=== PATIENT | male | born 1970 | race Caucasian/White ===

== ENCOUNTER 2016-10-13 09:22 | Emergency (ER) | payer OTHER ==
[2016-10-13 09:30] VITALS: RESP 18
[2016-10-13] MEDS ORDERED: SODIUM CHLORIDE 0.9% 500 ML IV STA (09:56)
[2016-10-13] MEDS ORDERED: PANTOPRAZOLE 40 MG/10 ML VIAL IVP STA (09:56)
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
[2016-10-13 10:33] LABS: Basophils # (A) 0.1 k/uL (0-0.2); Basophils % (A) 1 %; CH 32.5; CHCM 36.7; Eosinophils # (A) 0.1 k/uL (0-0.7); Eosinophils % (A) 1 %; HCT 43.5 % (39.0-53.0); HGB 15.4 gm/dL (13.0-17.5); Luc # (Auto) 0.17; Luc % (Auto) 2; Lymphocytes # (A) 1.4 k/uL (1.0-4.8); Lymphocytes % (A) 16 %; MCH 31.6 pg (25.0-35.0); MCHC 35.5 g/dL (31.0-37.0); MCV 89.1 fL (80.0-100.0); Mean Platelet Volume 6.6; Monocytes # (A) 0.8 k/uL (0-1.0); Monocytes % (A) 9 %; Neutrophils # (A) 6.1 k/uL (1.3-7.7); Neutrophils % (A) 71 %; RBC 4.88 m/uL (4.30-5.90); RDW 13.5 % (11.5-15.5); WBC 8.5 k/uL (3.8-10.6); WBC (Perox) 8.92
[2016-10-13 10:41] LABS: ALT 37 U/L (21-72); AST 23 U/L (17-59); Alkaline Phosphatase 70 U/L (38-126); Amylase 42 U/L (30-110); Anion Gap 15 mmol/L; Blood Urea Nitrogen 10 mg/dL (9-20); Carbon Dioxide 26 mmol/L (22-30); Chloride 104 mmol/L (98-107); Glucose 118 mg/dL (74-99); Non-African American GFR(MDRD) >60 (>60 ml/min/1.73 sqM); Potassium 3.7 mmol/L (3.5-5.1); Sodium 145 mmol/L (137-145); Total Bilirubin 0.6 mg/dL (0.2-1.3); Total Protein 7.6 g/dL (6.3-8.2)
[2016-10-13 10:42] LABS: INR 1.1 (<1.1); Partial Thromboplastin Time 24.3 sec (22.0-30.0); Prothrombin Time 11.3 sec (9.0-12.0)
[2016-10-13 10:54] LABS: Creatine Kinase 60 U/L (55-170)
[2016-10-13 11:07] LABS: Creatine Kinase MB 0.5 ng/mL (0.0-2.4); Troponin I <0.012 ng/mL (0.000-0.034)
[2016-10-13 12:19] VITALS: BP 136/67; PULSE 82; TEMP 98
== END 2016-10-13 12:25 | disposition home or self-care (01) ==
LOC: EC 09:22
DX: K92.2 Gastrointestinal hemorrhage, unspecified (principal); K21.9 Gastro-esophageal reflux disease without esophagitis; F41.9 Anxiety disorder, unspecified; F41.0 Panic disorder [episodic paroxysmal anxiety]; Z79.899 Other long term (current) drug therapy; Z88.5 Allergy status to narcotic agent
CPT/HCPCS: 99284; 36415; 86900; 86901; 80053; 82150; 82550; 82553; 83690; 84484; 85025; 85610; 85730; 86850; 82272; C9113

== ENCOUNTER → 2017-05-02 | Outpatient (CLI) | payer OTHER ==
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
== END | disposition home or self-care (01) ==
LOC: RADMRIMAIN 19:27
PROVIDERS: ATTEND Preventive Medicine Occupational Medicine
DX: S46.811A Strain of other muscles, fascia and tendons at shoulder and upper arm level, right arm, initial encounter (principal); M19.011 Primary osteoarthritis, right shoulder

== ENCOUNTER → 2018-07-08 | Outpatient (CLI) | payer OTHER ==
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
== END | disposition home or self-care (01) ==
LOC: RADMRIMAIN 07:58
PROVIDERS: ATTEND Family Medicine
DX: M47.812 Spondylosis without myelopathy or radiculopathy, cervical region (principal)
CPT/HCPCS: 72141

== ENCOUNTER 2018-08-17 20:22 | Emergency (ER) | payer OTHER ==
[2018-08-17 20:27] VITALS: BP 152/94; PULSE 73; RESP 18; TEMP 99.2
[2018-08-17] MEDS ORDERED: CEPHALEXIN 500 MG CAP PO STA (20:51)
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
== END 2018-08-17 21:06 | disposition home or self-care (01) ==
LOC: EC 20:22
DX: S61.431A Puncture wound without foreign body of right hand, initial encounter (principal); Z79.1 Long term (current) use of non-steroidal anti-inflammatories (NSAID); Z79.899 Other long term (current) drug therapy; Z88.5 Allergy status to narcotic agent; W60.XXXA Contact with nonvenomous plant thorns and spines and sharp leaves, initial encounter
CPT/HCPCS: 99283

== ENCOUNTER → 2018-09-01 | Outpatient (CLI) | payer OTHER ==
[2018-09-01 11:13] LABS: Basophils % (A) 1 %; Eosinophils # (A) 0.1 k/uL (0-0.7); Eosinophils % (A) 3 %; HCT 44.5 % (39.0-53.0); HGB 14.9 gm/dL (13.0-17.5); Lymphocytes # (A) 1.6 k/uL (1.0-4.8); Lymphocytes % (A) 33 %; MCH 31.6 pg (25.0-35.0); MCHC 33.4 g/dL (31.0-37.0); MCV 94.4 fL (80.0-100.0); Mean Platelet Volume 6.4; Monocytes # (A) 0.4 k/uL (0-1.0); Monocytes % (A) 8 %; Neutrophils # (A) 2.5 k/uL (1.3-7.7); Neutrophils % (A) 52 %; Platelet Count 297 k/uL (150-450); RBC 4.71 m/uL (4.30-5.90); RDW 13.7 % (11.5-15.5); WBC 4.8 k/uL (3.8-10.6)
[2018-09-01 19:12] LABS: Vitamin D 25 Hydroxy 26.2 ng/mL (30.0-100.0)
[2018-09-01 19:16] LABS: Albumin 4.5 g/dL (3.80-4.90); Albumin/Globulin Ratio 1.88 (1.20-2.10); Anion Gap 8.3 mmol/L (4.00-12.00); Calcium 9.4 mg/dL (8.7-10.3); Carbon Dioxide 27.7 mmol/L (21.6-31.8); Globulin 2.4 g/dL (2.1-3.7); Potassium 4.1 mmol/L (3.5-5.5); Total Bilirubin 0.5 mg/dL (0.2-1.2); Total Protein 6.9 g/dL (6.2-8.2)
== END ==
LOC: LABWHC1 09:35
PROVIDERS: ATTEND Psychiatry & Neurology Neurology
DX: E55.9 Vitamin D deficiency, unspecified (principal); R53.83 Other fatigue; R41.3 Other amnesia
CPT/HCPCS: 36415; 80053; 82306; 82607; 84207; 85025

== ENCOUNTER → 2018-09-16 | Outpatient (CLI) | payer OTHER ==
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
== END | disposition home or self-care (01) ==
LOC: RADMRIMAIN 21:35
PROVIDERS: ATTEND Nurse Practitioner Acute Care
DX: R51 Headache (principal); R26.9 Unspecified abnormalities of gait and mobility
CPT/HCPCS: 70551

== ENCOUNTER → 2019-08-03 | Outpatient (CLI) | payer OTHER ==
[2019-08-03 13:59] LABS: HCT 38.9 % (39.0-53.0); HGB 13.4 gm/dL (13.0-17.5); MCH 32.2 pg (25.0-35.0); MCHC 34.6 g/dL (31.0-37.0); MCV 92.9 fL (80.0-100.0); Mean Platelet Volume 5.3; Platelet Count 291 k/uL (150-450); RBC 4.18 m/uL (4.30-5.90); RDW 12.7 % (11.5-15.5); WBC 8.8 k/uL (3.8-10.6)
[2019-08-03 20:24] LABS: African American GFR (CKD) 122.4 (60.0-200.0); Albumin 4.5 g/dL (3.80-4.90); Albumin/Globulin Ratio 1.96 (1.60-3.17); Anion Gap 7.2 mmol/L (4.00-12.00); Calcium 9.4 mg/dL (8.7-10.3); Carbon Dioxide 27.8 mmol/L (21.6-31.8); Globulin 2.3 g/dL (1.6-3.3); Potassium 5.2 mmol/L (3.5-5.5); Total Bilirubin 0.3 mg/dL (0.3-1.2); Total Protein 6.8 g/dL (6.2-8.2)
[2019-08-03 20:32] LABS: T4, Free (Free Thyroxine) 0.9 ng/dL (0.80-1.80)
== END | disposition home or self-care (01) ==
LOC: LABWHC1 13:29
PROVIDERS: ATTEND Internal Medicine
DX: R61 Generalized hyperhidrosis (principal)
CPT/HCPCS: 36415; 80053; 84439; 84443; 85027

== ENCOUNTER 2020-08-15 10:35 | Inpatient (IN) | payer OTHER ==
[2020-08-15] MEDS ORDERED: SODIUM CHLORIDE 0.9% 1,000 ML IV ONE (11:19)
[2020-08-15] MEDS ORDERED: ALBUTEROL HFA INHALER INHALATION STA (11:26)
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
[2020-08-15] MEDS: SODIUM CHLORIDE 0.9% 1,000 ML IV SCH ×2 (11:48→19:29)
--- NOTE | 2020-08-15 12:08 | XR ---
EXAMINATION TYPE: XR chest 1V portable DATE OF EXAM: 08/15/2020 COMPARISON: NONE HISTORY: Covid 19 pneumonia suspected, cough TECHNIQUE: Single frontal view of the chest is obtained. FINDINGS: Bilateral patchy airspace disease is present. No evident pneumothorax or pleural effusion. Cardiomediastinal silhouette, pulmonary vascularity and reba within normal limits. IMPRESSION: Bilateral pneumonia.
[2020-08-15 12:13] LABS: Basophils # (A) 0.1 k/uL (0-0.2); Basophils % (A) 1 %; Eosinophils % (A) 0 %; HCT 40.7 % (39.0-53.0); HGB 13.7 gm/dL (13.0-17.5); Lymphocytes # (A) 0.7 k/uL (1.0-4.8); Lymphocytes % (A) 7 %; MCH 31.7 pg (25.0-35.0); MCHC 33.5 g/dL (31.0-37.0); MCV 94.5 fL (80.0-100.0); Mean Platelet Volume 6.9; Monocytes # (A) 0.2 k/uL (0-1.0); Monocytes % (A) 2 %; Neutrophils # (A) 8.4 k/uL (1.3-7.7); Neutrophils % (A) 90 %; Platelet Count 176 k/uL (150-450); RBC 4.31 m/uL (4.30-5.90); RDW 12.8 % (11.5-15.5); WBC 9.3 k/uL (3.8-10.6)
[2020-08-15 12:26] LABS: ALT 50 U/L (4-49); AST 71 U/L (17-59); African American GFR (CKD) >90 (>60 ml/min/1.73 sqM); Albumin 3.8 g/dL (3.5-5.0); Alkaline Phosphatase 66 U/L (38-126); Anion Gap 5 mmol/L; Blood Urea Nitrogen 16 mg/dL (9-20); Calcium 8.6 mg/dL (8.4-10.2); Carbon Dioxide 35 mmol/L (22-30); Chloride 97 mmol/L (98-107); Glucose 149 mg/dL (74-99); LDH 1093 U/L (313-618); Magnesium 1.7 mg/dL (1.6-2.3); Non-African American GFR(CKD) >90 (>60 ml/min/1.73 sqM); Potassium 3.6 mmol/L (3.5-5.1); Sodium 137 mmol/L (137-145); Total Bilirubin 0.5 mg/dL (0.2-1.3); Total Protein 6.8 g/dL (6.3-8.2)
[2020-08-15 12:36] LABS: D-Dimer 0.38 mg/L FEU (<0.60); INR 0.9 (<1.2); Partial Thromboplastin Time 24.9 sec (22.0-30.0); Prothrombin Time 9.3 sec (9.0-12.0)
[2020-08-15 12:49] LABS: C Reactive Protein 142.7 mg/L (<10.0)
[2020-08-15] MEDS ORDERED: KETOROLAC 15 MG/ML 1 ML VIAL IVP PRN (13:15)
[2020-08-15] MEDS ORDERED: NALOXONE 0.4 MG/ML 1 ML VIAL IV PRN (13:15)
[2020-08-15] MEDS ORDERED: SODIUM CHLORIDE 0.9% 1,000 ML IV STA (13:23)
[2020-08-15] MEDS ORDERED: REMDESIVIR (EUA) 200 MG in SODIUM CHLORIDE 0.9% 250 ML IVPB ONE (15:00)
[2020-08-15] MEDS: dexAMETHasone 2 MG TAB PO SCH (17:27)
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
[2020-08-15] MEDS: ONDANSETRON 4 MG/2 ML VIAL IVP PRN (19:28)
[2020-08-15] MEDS: ACETAMINOPHEN TAB 325 MG TAB PO PRN (19:38)
[2020-08-15 20:49] LABS: D-Dimer 0.39 mg/L FEU (<0.60)
[2020-08-15] MEDS ORDERED: predniSONE 20 MG TAB PO SCH (21:00)
[2020-08-15] MEDS: FAMOTIDINE 20 MG TAB PO SCH (21:08)
[2020-08-15] MEDS: MELATONIN 5 MG TABLET PO SCH (21:36)
[2020-08-15 22:46] LABS: Ferritin 1161.8 ng/mL (22.0-322.0)
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
[2020-08-16] MEDS: ONDANSETRON 4 MG/2 ML VIAL IVP PRN ×3 (02:29→19:21)
[2020-08-16] MEDS: ACETAMINOPHEN TAB 325 MG TAB PO PRN ×2 (02:30→12:00)
[2020-08-16] MEDS: IBUPROFEN 400 MG TAB PO PRN ×2 (02:59→19:21)
[2020-08-16] MEDS ORDERED: METOCLOPRAMIDE 5 MG/ML 2 ML VIAL IVP STA (03:46)
[2020-08-16] MEDS: SODIUM CHLORIDE 0.9% 1,000 ML IV SCH ×2 (03:57→18:08)
[2020-08-16 05:59] LABS: Ferritin 906.6 ng/mL (22.0-322.0)
[2020-08-16 06:00] LABS: African American GFR (CKD) 115.8 (60.0-200.0); Albumin 3.8 g/dL (3.80-4.90); Albumin/Globulin Ratio 1.73 (1.60-3.17); Anion Gap 10.7 mmol/L (4.00-12.00); BUN/Creat Ratio 13.33 Ratio (12.00-20.00); Calcium 8.2 mg/dL (8.7-10.3); Carbon Dioxide 29.3 mmol/L (21.6-31.8); Globulin 2.2 g/dL (1.6-3.3); Non-African American GFR(CKD) 99.9 (60.0-200.0); Total Bilirubin 0.3 mg/dL (0.3-1.2)
[2020-08-16 06:27] LABS: Basophils % (A) 1 %; Eosinophils % (A) 0 %; HCT 40.1 % (39.0-53.0); HGB 13.1 gm/dL (13.0-17.5); Lymphocytes # (A) 0.5 k/uL (1.0-4.8); Lymphocytes % (A) 6 %; MCH 31.2 pg (25.0-35.0); MCHC 32.6 g/dL (31.0-37.0); MCV 95.7 fL (80.0-100.0); Mean Platelet Volume 6.7; Monocytes # (A) 0.2 k/uL (0-1.0); Monocytes % (A) 3 %; Neutrophils # (A) 6.8 k/uL (1.3-7.7); Neutrophils % (A) 89 %; Platelet Count 183 k/uL (150-450); RBC 4.19 m/uL (4.30-5.90); WBC 7.6 k/uL (3.8-10.6)
[2020-08-16] MEDS ORDERED: AZITHROMYCIN 500 MG TAB PO SCH (09:00)
[2020-08-16] MEDS ORDERED: PANTOPRAZOLE 40 MG/10 ML VIAL IV SCH (09:00)
[2020-08-16] MEDS: amLODIPine 5 MG TAB PO SCH (09:10)
[2020-08-16] MEDS: ENOXAPARIN 40 MG/0.4 ML SYRINGE SQ SCH (09:10)
[2020-08-16] MEDS: lisinopriL 20 MG TAB PO SCH (09:10)
[2020-08-16] MEDS: ZINC SULFATE 220 MG CAP PO SCH (09:10)
[2020-08-16] MEDS: dexAMETHasone 2 MG TAB PO SCH (09:10)
[2020-08-16] MEDS: ASCORBIC ACID 500 MG TAB PO SCH (09:10)
[2020-08-16] MEDS: DULoxetine HCL 60 MG CAPSULE.DR PO SCH (09:10)
[2020-08-16] MEDS: FAMOTIDINE 20 MG TAB PO SCH ×2 (09:11→19:21)
[2020-08-16] MEDS: NON FORMULARY DRUG (Buprenorphine Hcl/Naloxone Hcl [Suboxone 8 Mg-2 Mg Sl Film] 1 EACH Fil SUBLINGUAL SCH (09:15)
--- NOTE | 2020-08-16 10:54 | XR ---
EXAMINATION TYPE: XR chest 1V portable DATE OF EXAM: 08/16/2020 COMPARISON: Prior chest x-ray 08/15/2020 HISTORY: Covid pneumonia TECHNIQUE: Single frontal view of the chest is obtained. FINDINGS: There is no significant interval change. IMPRESSION: Findings consistent with bilateral pneumonia.
--- NOTE | 2020-08-16 12:55 | P.PN ---
Subjective Progress Note Date: 08/16/20 Principal diagnosis: CoVID 19 pneumonia This is a 50-year-old male patient of Dr. Meera Dominguez that tested positive for COVID19 as of yesterday. Patient still was having symptoms of body aches, malaise, shortness of breath for the past 4 days. 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 He may have had the exposure to COVID 19 at work. He reports multiple staff members sick. This morning patient developed worsening shortness of breath, hypoxemia, his pulse ox was 88% on room air. Chest x-ray in the emergency department showed bilateral patchy airspace disease, his lab work showed lymphopenia, with lymphocyte count of 0.7, correlat ion profile and d-dimer were within normal limits, d-dimer was 0.38, his plasma lactic acid was 2.6, his LDH and CRP were elevated at 1093 and 142.7 respectively. Patient was febrile presentation with a temp of 101.4F. He is on 3 L of oxygen a pulse ox of 90%, hemodynamically stable, his lactic acid is elevated on presentation, he was given IV hydration a total of 2 L and IV fluids, and maintenance IV fluid is 0.9 normal saline infusing at a rate of 100 ML per hour, he was started on oral Decadron, prophylactic doses of Lovenox, and we have started the patient on Remdesivir. The patient is seen today 08/16/2020 in follow-up on the regular medical floor. He is currently resting in bed. Awake and alert in no acute distress. Still having some mild headache and muscle aches. He is still requiring oxygen at 5 L/m per nasal cannula to maintain O2 saturations in the low 90s. Earlier this morning had a T-max of 101.7. Currently afebrile. White count 7.6. Hemoglobin 13.1. He is continued on Remdesivir, vitamin C, vitamin D, Pepcid, zinc, melatonin, Lovenox. Antibiotics in the form of azithromycin. Check stat x-ray continues to show bilateral pneumonia. Objective - Vital Signs Vital signs: Vital Signs Temp 98.3 F 08/16/20 07:00 Pulse 69 08/16/20 07:00 Resp 18 08/16/20 07:00 BP 127/86 08/16/20 07:00 Pulse Ox 92 L 11/04/20 07:00 Intake & Output 08/15/20 08/16/20 08/16/20 18:59 06:59 18:59 Intake Total 200 Output Total 1400 Balance -1200 Weight 127.006 kg Intake: Oral 200 Output: Urine 1400 - Exam GENERAL EXAM: Alert, pleasant 50-year-old gentleman, on 5 L nasal cannula comfortable in no apparent distress. HEAD: Normocephalic. EYES: Normal reaction of pupils, equal size. NOSE: Clear with pink turbinates. THROAT: No erythema or exudates. NECK: No masses, no JVD. CHEST: No chest wall deformity. LUNGS: Equal air entry with basilar crackles. CVS: S1 and S2 normal with no audible murmur, regular rhythm. ABDOMEN: No hepatosplenomegaly, normal bowel sounds, no guarding or rigidity. SPINE: No scoliosis or deformity SKIN: No rashes CENTRAL NERVOUS SYSTEM: No focal deficits, tone is normal in all 4 extremities. EXTREMITIES: There is no peripheral edema. No clubbing, no cyanosis. Peripheral pulses are intact. - Labs CBC & Chem 7: 08/16/20 05:41 08/15/20 20:00 Labs: Abnormal Lab Results - Last 24 Hours (Table) 08/15/20 08/15/20 08/15/20 Range/Units 11:23 11:23 11:23 RBC (4.30-5.90) m/uL Lymphocytes # (1.0-4.8) k/uL Chloride 97 L (98-107) mmol/L Carbon Dioxide 35 H (22-30) mmol/L Glucose 149 H (74-99) mg/dL Plasma Lactic Acid Misha 2.6 H* (0.7-2.0) mmol/L Calcium (8.7-10.3) mg/dL Ferritin 1161.8 H (22.0-322.0) ng/mL AST 71 H (17-59) U/L ALT 50 H (4-49) U/L Lactate Dehydrogenase 1093 H (313-618) U/L C-Reactive Protein 142.7 H (<10.0) mg/L Total Protein (6.2-8.2) g/dL Procalcitonin 0.24 H (0.02-0.09) ng/mL 08/15/20 08/16/20 Range/Units 20:00 05:41 RBC 4.19 L (4.30-5.90) m/uL Lymphocytes # 0.5 L (1.0-4.8) k/uL Chloride (98-107) mmol/L Carbon Dioxide (22-30) mmol/L Glucose 147 H (74-99) mg/dL Plasma Lactic Acid Misha (0.7-2.0) mmol/L Calcium 8.2 L (8.7-10.3) mg/dL Ferritin 906.6 H (22.0-322.0) ng/mL AST 57 H (17-59) U/L ALT (4-49) U/L Lactate Dehydrogenase (313-618) U/L C-Reactive Protein 18.0 H (<10.0) mg/L Total Protein 6.0 L (6.2-8.2) g/dL Procalcitonin (0.02-0.09) ng/mL Assessment and Plan Assessment: 1 Acute hypoxic respiratory failure related to acute COVID19 related pneumonia, tested positive for Covid 19 on 08/14/2020, started on Remdesivir on 08/15/2020 2 Elevated inflammatory markers related to the above 3 Mild lactic acidosis, improved with IV hydration 4 Febrile illness, body aches, dyspnea, related to viral pneumonia secondary to Covid 19 5 History of anxiety/panic disorder 6 Lifetime nonsmoker 7 Hypertension 8 Chronic pain 9 GERD/reflux Plan: The patient was seen and evaluated by Dr. Mayen Chest x-ray and labs reviewed Continue Remdesivir Continue vitamin C, vitamin D, zinc, melatonin, Pepcid Continue Lovenox Repeat labs in a.m. Titrate down the FiO2 as tolerated We'll continue to follow I, the cosigning physician, performed a history & physical examination of the patient. Lungs sounds bilateral crackles, few scattered rhonchi. Maintaining good O2 saturations in the 90s on 5 L/m per nasal cannula I discussed the assessment and plan of care with my nurse practitioner, Kalie Talbert. I attest to the above note as dictated by her.
[2020-08-16] MEDS: REMDESIVIR (EUA) 100 MG in SODIUM CHLORIDE 0.9% 250 ML IVPB SCH (15:30)
[2020-08-16] MEDS: MELATONIN 5 MG TABLET PO SCH (23:13)
[2020-08-17] MEDS: MELATONIN 5 MG TABLET PO SCH (00:38)
[2020-08-17] MEDS: SODIUM CHLORIDE 0.9% 1,000 ML IV SCH ×2 (00:56→14:19)
[2020-08-17] MEDS: ONDANSETRON 4 MG/2 ML VIAL IVP PRN ×3 (06:31→22:01)
[2020-08-17 07:09] LABS: Basophils # (A) 0.1 k/uL (0-0.2); Basophils % (A) 1 %; Eosinophils % (A) 0 %; HCT 43.1 % (39.0-53.0); HGB 13.9 gm/dL (13.0-17.5); Lymphocytes # (A) 0.9 k/uL (1.0-4.8); Lymphocytes % (A) 12 %; MCHC 32.2 g/dL (31.0-37.0); MCV 96.6 fL (80.0-100.0); Mean Platelet Volume 6.9; Monocytes # (A) 0.3 k/uL (0-1.0); Monocytes % (A) 5 %; Neutrophils # (A) 5.6 k/uL (1.3-7.7); Neutrophils % (A) 81 %; Platelet Count 222 k/uL (150-450); RBC 4.47 m/uL (4.30-5.90); RDW 13.1 % (11.5-15.5); WBC 6.9 k/uL (3.8-10.6)
[2020-08-17] MEDS: NON FORMULARY DRUG (Buprenorphine Hcl/Naloxone Hcl [Suboxone 8 Mg-2 Mg Sl Film] 1 EACH Fil SUBLINGUAL SCH (07:48)
[2020-08-17] MEDS: ACETAMINOPHEN TAB 325 MG TAB PO PRN ×3 (07:55→22:00)
[2020-08-17] MEDS: amLODIPine 5 MG TAB PO SCH (07:56)
[2020-08-17] MEDS: lisinopriL 20 MG TAB PO SCH (07:56)
[2020-08-17] MEDS: ENOXAPARIN 40 MG/0.4 ML SYRINGE SQ SCH (07:56)
[2020-08-17] MEDS: ASCORBIC ACID 500 MG TAB PO SCH (07:56)
[2020-08-17] MEDS: CHOLECALCIFEROL 1,000 UNIT TAB PO SCH (07:56)
[2020-08-17] MEDS: DULoxetine HCL 60 MG CAPSULE.DR PO SCH (07:56)
[2020-08-17] MEDS: ZINC SULFATE 220 MG CAP PO SCH (07:56)
[2020-08-17] MEDS: FAMOTIDINE 20 MG TAB PO SCH ×2 (07:56→22:00)
[2020-08-17] MEDS: dexAMETHasone 2 MG TAB PO SCH (07:56)
--- NOTE | 2020-08-17 10:01 | XR ---
EXAMINATION TYPE: XR chest 1V portable DATE OF EXAM: 08/17/2020 COMPARISON: 08/16/2020 HISTORY: Shortness of breath TECHNIQUE: Single frontal view of the chest is obtained. FINDINGS: Diffuse multifocal areas of consolidation. No sizable effusion or pneumothorax. Heart size stable. Technique limiting. IMPRESSION: Limited exam demonstrates multifocal airspace disease correlate for pneumonia.
[2020-08-17] MEDS: ALBUTEROL HFA INHALER INHALATION SCH ×3 (13:13→19:22)
[2020-08-17] MEDS: REMDESIVIR (EUA) 100 MG in SODIUM CHLORIDE 0.9% 250 ML IVPB SCH (15:40)
--- NOTE | 2020-08-17 16:01 | P.PN ---
Subjective Progress Note Date: 08/17/20 Principal diagnosis: CoVID 19 pneumonia This is a 50-year-old male patient of Dr. Meera Dominguez that tested positive for COVID19 as of yesterday. Patient still was having symptoms of body aches, malaise, shortness of breath for the past 4 days. 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 He may have had the exposure to COVID 19 at work. He reports multiple staff members sick. This morning patient developed worsening shortness of breath, hypoxemia, his pulse ox was 88% on room air. Chest x-ray in the emergency department showed bilateral patchy airspace disease, his lab work showed lymphopenia, with lymphocyte count of 0.7, correlat ion profile and d-dimer were within normal limits, d-dimer was 0.38, his plasma lactic acid was 2.6, his LDH and CRP were elevated at 1093 and 142.7 respectively. Patient was febrile presentation with a temp of 101.4F. He is on 3 L of oxygen a pulse ox of 90%, hemodynamically stable, his lactic acid is elevated on presentation, he was given IV hydration a total of 2 L and IV fluids, and maintenance IV fluid is 0.9 normal saline infusing at a rate of 100 ML per hour, he was started on oral Decadron, prophylactic doses of Lovenox, and we have started the patient on Remdesivir. The patient is seen today 08/16/2020 in follow-up on the regular medical floor. He is currently resting in bed. Awake and alert in no acute distress. Still having some mild headache and muscle aches. He is still requiring oxygen at 5 L/m per nasal cannula to maintain O2 saturations in the low 90s. Earlier this morning had a T-max of 101.7. Currently afebrile. White count 7.6. Hemoglobin 13.1. He is continued on Remdesivir, vitamin C, vitamin D, Pepcid, zinc, melatonin, Lovenox. Antibiotics in the form of azithromycin. Check stat x-ray continues to show bilateral pneumonia. The patient is seen today 08/17/2020 in follow-up on the regular medical floor. He is currently resting in bed. Breathing a bit more difficult today compared to yesterday. He did require increase oxygen up to 8 L high flow nasal cannula for a little while earlier this morning. Currently back down to 5 L. He is 93% O2 saturation. Temperature 99.2. White count 6.9. Hemoglobin 13.9. He is receiving day #3 of Remdesivir. Chest x-ray continues to show multifocal airspace disease. He is continued on vitamin C, vitamin D, Pepcid, zinc, melatonin, Lovenox. He did sleep in a prone position throughout the night. Objective - Vital Signs Vital signs: Vital Signs Temp 99.2 F 08/17/20 15:00 Pulse 78 08/17/20 15:00 Resp 18 08/16/20 15:00 BP 130/82 08/17/20 15:00 Pulse Ox 93 L 08/17/20 15:00 Intake & Output 08/16/20 08/17/20 08/17/20 18:59 06:59 18:59 Intake Total 200 300 400 Output Total 625 1400 Balance 200 -325 -1000 Intake: Intake, IV Titration 300 Amount Sodium Chloride 0.9% 1, 300 000 ml @ 100 mls/hr IV . Q10H [facility] Rx#:[id number] Oral 200 400 Output: Urine 625 1400 Other: Voiding Method Toilet # Voids 3 3 - Exam GENERAL EXAM: Alert, pleasant 50-year-old gentleman, on 5 L nasal cannula fairly comfortable in no apparent distress. HEAD: Normocephalic. EYES: Normal reaction of pupils, equal size. NOSE: Clear with pink turbinates. THROAT: No erythema or exudates. NECK: No masses, no JVD. CHEST: No chest wall deformity. LUNGS: Equal air entry with basilar crackles. CVS: S1 and S2 normal with no audible murmur, regular rhythm. ABDOMEN: No hepatosplenomegaly, normal bowel sounds, no guarding or rigidity. SPINE: No scoliosis or deformity SKIN: No rashes CENTRAL NERVOUS SYSTEM: No focal deficits, tone is normal in all 4 extremities. EXTREMITIES: There is no peripheral edema. No clubbing, no cyanosis. Peripheral pulses are intact. - Labs CBC & Chem 7: 08/17/20 06:08 08/15/20 20:00 Labs: Abnormal Lab Results - Last 24 Hours (Table) 08/17/20 Range/Units 06:08 Lymphocytes # 0.9 L (1.0-4.8) k/uL Microbiology - Last 24 Hours (Table) 08/15/20 11:23 Blood Culture - Preliminary Blood No Growth after 48 hours Assessment and Plan Assessment: 1 Acute hypoxic respiratory failure related to acute COVID19 related pneumonia, tested positive for Covid 19 on 08/14/2020, started on Remdesivir on 08/15/2020 2 Elevated inflammatory markers related to the above 3 Mild lactic acidosis, improved with IV hydration 4 Febrile illness, body aches, dyspnea, related to viral pneumonia secondary to Covid 19 5 History of anxiety/panic disorder 6 Lifetime nonsmoker 7 Hypertension 8 Chronic pain 9 GERD/reflux Plan: The patient was seen and evaluated by Dr. Mayen Chest x-ray and labs reviewed We'll offer convalescent plasma if available Continue Remdesivir Continue vitamin C, vitamin D, zinc, melatonin, Pepcid Continue Lovenox Titrate FiO2 as tolerated Prone positioning as tolerated We'll continue to follow I, the cosigning physician, performed a history & physical examination of the patient. Lungs sounds bilateral crackles, few scattered rhonchi. Maintaining good O2 saturations in the 90s on 5 L/m per nasal cannula I discussed the assessment and plan of care with my nurse practitioner, Kalie Talbert. I attest to the above note as dictated by her.
[2020-08-17] MEDS: SYMBICORT 160-4.5 MCG INHALER INHALATION SCH (19:22)
[2020-08-17 20:38] LABS: D-Dimer 0.74 mg/L FEU (<0.60)
--- NOTE | 2020-08-17 23:49 | P.PN ---
Subjective Progress Note Date: 08/16/20 Principal diagnosis: Acute COVID-19 viral pneumonia Patient is a 50-year-old male with a known history of hypertension, GERD, lower GI bleed, right shoulder injury/pain presents to ER with complaints of generalized weakness and body aches and fever and chills and worsening shortness of breath for the past 4 days. Patient was seen at his PCPs office yesterday and tested for COVID-19 which came out positive. Patient states that he developed shortness of breath this morning and his pulse ox was 88% on room air. Patient presented to ER for evaluation. 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 No complaints of chest pain. No nausea vomiting or abdominal pain or diarrhea. Denied any loss of smell. Patient did have headache this morning. Currently denies any headache. Chest x-ray showed bilateral pneumonia. EKG showed normal sinus rhythm Laboratory data showed lymphocyte count 0.7, WBC 9.3, D-dimer 0.38 Bicarb is 35 Lactic acid 2.6 Magnesium 1.7, ferritin 1161, AST 71 ALT 50 and LDH 1093 and CRP 142 Procalcitonin 0.24 08/16/2020 Patient is currently resting in bed comfortably. No complaints of chest pain or worsening shortness of breath. No acute distress. Awake alert when x3. Patient is currently requiring oxygen 5 L via nasal cannula. Patient has been febrile with T-max 101.7 Laboratory reviewed. Chest x-ray showed consistent with bilateral pneumonia. Currently being treated dexamethasone, Lovenox and remdesivir. Patient is also on antibiotics in the form of azithromycin. Pulmonary is on board. Current medications reviewed. Objective - Vital Signs Vital signs: Vital Signs Temp 98.8 F 08/16/20 19:23 Pulse 84 08/16/20 19:23 Resp 18 08/16/20 15:00 BP 148/86 08/16/20 19:23 Pulse Ox 92 L 08/16/20 19:23 Intake & Output 08/16/20 08/16/20 08/17/20 06:59 18:59 06:59 Intake Total 200 200 Output Total 1400 Balance -1200 200 Intake: Oral 200 200 Output: Urine 1400 Other: # Voids 3 - Exam PHYSICAL EXAMINATION: Patient is lying in the bed comfortably, no acute distress, awake alert and oriented.. HEENT: Normocephalic. Neck is supple. Pupils reactive. Nostrils clear. Oral cavity is moist. Ears reveal no drainage. Neck reveals no JVD, carotid bruits, or thyromegaly. CHEST EXAMINATION: Trachea is central. Symmetrical expansion. Lung woodard clear to auscultation and percussion. CARDIAC: Normal S1, S2 with no gallops. No murmurs ABDOMEN: Soft. Bowel sounds normal. No organomegaly. No abdominal bruits. Extremities: reveal no edema. No clubbing or cyanosis Neurologically awake, alert, oriented x3 with well-coordinated movements. No focal deficits noted Skin: No rash or skin lesions. Psychiatric: Coperative. Nonsuicidal Musculoskeletal: No joint swelling or deformity. Normal range of motion. Due to COVID-19 isolation, physical examination findings were obtained in the right ear from the medical staff to avoid unnecessary contact or exposure. - Labs CBC & Chem 7: 08/17/20 06:08 08/15/20 20:00 Labs: Abnormal Lab Results - Last 24 Hours (Table) 08/15/20 08/15/20 08/16/20 Range/Units 11:23 20:00 05:41 RBC 4.19 L (4.30-5.90) m/uL Lymphocytes # 0.5 L (1.0-4.8) k/uL Glucose 147 H (70-110) mg/dL Calcium 8.2 L (8.7-10.3) mg/dL Ferritin 1161.8 H 906.6 H (22.0-322.0) ng/mL AST 57 H (14-35) U/L C-Reactive Protein 18.0 H (0.0-0.8) mg/dL Total Protein 6.0 L (6.2-8.2) g/dL Microbiology - Last 24 Hours (Table) 08/15/20 11:23 Blood Culture - Preliminary Blood No Growth after 24 hours Assessment and Plan Assessment: Acute COVID-19 viral pneumonia Acute hypoxic respiratory failure secondary to COVID-19 viral infection Sepsis Generalized body aches, fever chills and shortness of breath secondary to above Lactic acidosis resolved Elevated inflammatory markers GERD History of GI bleed and gastric ulcer Diverticular disease Right shoulder injury/pain Hypertension DVT prophylaxis with Lovenox subcu Plan: Patient will be continued on oxygen therapy and monitor closely. on dexamethasone 6 mg daily and Lovenox 40 mg subcu daily and Remdesivir Pulmonary is following Continue with breathing treatments. Further recommendations based on the clinical course. GI and DVT prophylaxis. Time with Patient: Greater than 30
--- NOTE | 2020-08-17 23:51 | P.PN ---
Subjective Progress Note Date: 08/17/20 Principal diagnosis: Acute COVID-19 viral pneumonia Patient is a 50-year-old male with a known history of hypertension, GERD, lower GI bleed, right shoulder injury/pain presents to ER with complaints of generalized weakness and body aches and fever and chills and worsening shortness of breath for the past 4 days. Patient was seen at his PCPs office yesterday and tested for COVID-19 which came out positive. Patient states that he developed shortness of breath this morning and his pulse ox was 88% on room air. Patient presented to ER for evaluation. 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 No complaints of chest pain. No nausea vomiting or abdominal pain or diarrhea. Denied any loss of smell. Patient did have headache this morning. Currently denies any headache. Chest x-ray showed bilateral pneumonia. EKG showed normal sinus rhythm Laboratory data showed lymphocyte count 0.7, WBC 9.3, D-dimer 0.38 Bicarb is 35 Lactic acid 2.6 Magnesium 1.7, ferritin 1161, AST 71 ALT 50 and LDH 1093 and CRP 142 Procalcitonin 0.24 08/16/2020 Patient is currently resting in bed comfortably. No complaints of chest pain or worsening shortness of breath. No acute distress. Awake alert when x3. Patient is currently requiring oxygen 5 L via nasal cannula. Patient has been febrile with T-max 101.7 Laboratory reviewed. Chest x-ray showed consistent with bilateral pneumonia. Currently being treated dexamethasone, Lovenox and remdesivir. Patient is also on antibiotics in the form of azithromycin. Pulmonary is on board. 08/17/2020 Patient is awake alert oriented x3. Still requiring oxygen at 5 L via nasal cannula. T-max is 99.2 patient has been afebrile currently. No nausea vomiting or abdominal pain or diarrhea. Chest x-ray showed limited exam demonstrates multifocal airspace disease correlate for pneumonia. Patient is being continued on remdesivir day 3. Current medications reviewed. Objective - Vital Signs Vital signs: Vital Signs Temp 99.2 F 08/17/20 15:00 Pulse 78 08/17/20 15:00 Resp 18 08/16/20 15:00 BP 130/82 08/17/20 15:00 Pulse Ox 93 L 08/17/20 15:00 Intake & Output 08/17/20 08/17/20 08/18/20 06:59 18:59 06:59 Intake Total 300 400 Output Total 625 1400 Balance -325 -1000 Intake: Intake, IV Titration 300 Amount Sodium Chloride 0.9% 1, 300 000 ml @ 100 mls/hr IV . Q10H [facility] Rx#:[id number] Oral 400 Output: Urine 625 1400 Other: Voiding Method Toilet # Voids 3 - Exam PHYSICAL EXAMINATION: Patient is lying in the bed comfortably, no acute distress, awake alert and oriented.. HEENT: Normocephalic. Neck is supple. Pupils reactive. Nostrils clear. Oral cavity is moist. Ears reveal no drainage. Neck reveals no JVD, carotid bruits, or thyromegaly. CHEST EXAMINATION: Trachea is central. Symmetrical expansion. Lung woodard clear to auscultation and percussion. CARDIAC: Normal S1, S2 with no gallops. No murmurs ABDOMEN: Soft. Bowel sounds normal. No organomegaly. No abdominal bruits. Extremities: reveal no edema. No clubbing or cyanosis Neurologically awake, alert, oriented x3 with well-coordinated movements. No focal deficits noted Skin: No rash or skin lesions. Psychiatric: Coperative. Nonsuicidal Musculoskeletal: No joint swelling or deformity. Normal range of motion. Due to COVID-19 isolation, physical examination findings were obtained in the right ear from the medical staff to avoid unnecessary contact or exposure. - Labs CBC & Chem 7: 08/17/20 06:08 08/15/20 20:00 Labs: Abnormal Lab Results - Last 24 Hours (Table) 08/17/20 Range/Units 06:08 Lymphocytes # 0.9 L (1.0-4.8) k/uL Microbiology - Last 24 Hours (Table) 08/15/20 11:23 Blood Culture - Preliminary Blood No Growth after 48 hours Assessment and Plan Assessment: Acute COVID-19 viral pneumonia Acute hypoxic respiratory failure secondary to COVID-19 viral infection Sepsis Generalized body aches, fever chills and shortness of breath secondary to above Lactic acidosis resolved Elevated inflammatory markers GERD History of GI bleed and gastric ulcer Diverticular disease Right shoulder injury/pain Hypertension DVT prophylaxis with Lovenox subcu Plan: Patient will be continued on oxygen therapy and monitor closely. on dexamethasone 6 mg daily and Lovenox 40 mg subcu daily and Remdesivir Pulmonary is following Continue with breathing treatments. Further recommendations based on the clinical course. GI and DVT prophylaxis. Time with Patient: Greater than 30
[2020-08-18] MEDS: SODIUM CHLORIDE 0.9% 1,000 ML IV SCH ×3 (00:36→21:14)
[2020-08-18 03:54] LABS: African American GFR (CKD) 121.6 (60.0-200.0); Albumin 3.9 g/dL (3.80-4.90); Albumin/Globulin Ratio 1.63 (1.60-3.17); Anion Gap 8.3 mmol/L (4.00-12.00); BUN/Creat Ratio 17.5 Ratio (12.00-20.00); C Reactive Protein 9.6 mg/dL (0.0-0.8); Calcium 8.4 mg/dL (8.7-10.3); Carbon Dioxide 34.7 mmol/L (21.6-31.8); Ferritin 1439.1 ng/mL (22.0-322.0); Globulin 2.4 g/dL (1.6-3.3); Non-African American GFR(CKD) 104.9 (60.0-200.0); Potassium 4.1 mmol/L (3.5-5.5); Total Bilirubin 0.5 mg/dL (0.3-1.2); Total Protein 6.3 g/dL (6.2-8.2)
[2020-08-18] MEDS: ONDANSETRON 4 MG/2 ML VIAL IVP PRN ×2 (06:11→16:22)
[2020-08-18 07:28] LABS: Basophils # (A) 0.1 k/uL (0-0.2); Basophils % (A) 2 %; Eosinophils % (A) 0 %; HCT 41.8 % (39.0-53.0); HGB 13.7 gm/dL (13.0-17.5); Lymphocytes # (A) 0.9 k/uL (1.0-4.8); Lymphocytes % (A) 11 %; MCH 31.1 pg (25.0-35.0); MCHC 32.6 g/dL (31.0-37.0); MCV 95.3 fL (80.0-100.0); Mean Platelet Volume 6.8; Monocytes # (A) 0.7 k/uL (0-1.0); Monocytes % (A) 8 %; Neutrophils # (A) 6.9 k/uL (1.3-7.7); Neutrophils % (A) 78 %; Platelet Count 289 k/uL (150-450); RBC 4.39 m/uL (4.30-5.90); RDW 13.1 % (11.5-15.5); WBC 8.8 k/uL (3.8-10.6)
[2020-08-18] MEDS: CHOLECALCIFEROL 1,000 UNIT TAB PO SCH (07:41)
[2020-08-18] MEDS: FAMOTIDINE 20 MG TAB PO SCH ×2 (07:41→21:11)
[2020-08-18] MEDS: DULoxetine HCL 60 MG CAPSULE.DR PO SCH (07:41)
[2020-08-18] MEDS: ASCORBIC ACID 500 MG TAB PO SCH (07:41)
[2020-08-18] MEDS: lisinopriL 20 MG TAB PO SCH (07:41)
[2020-08-18] MEDS: amLODIPine 5 MG TAB PO SCH (07:41)
[2020-08-18] MEDS: ENOXAPARIN 40 MG/0.4 ML SYRINGE SQ SCH (07:42)
[2020-08-18] MEDS: dexAMETHasone 2 MG TAB PO SCH (07:42)
[2020-08-18] MEDS: ZINC SULFATE 220 MG CAP PO SCH (07:43)
[2020-08-18] MEDS: ACETAMINOPHEN TAB 325 MG TAB PO PRN ×2 (07:43→16:22)
[2020-08-18] MEDS: NON FORMULARY DRUG (Buprenorphine Hcl/Naloxone Hcl [Suboxone 8 Mg-2 Mg Sl Film] 1 EACH Fil SUBLINGUAL SCH (07:47)
[2020-08-18] MEDS: ALBUTEROL HFA INHALER INHALATION SCH ×4 (08:08→18:54)
[2020-08-18] MEDS: SYMBICORT 160-4.5 MCG INHALER INHALATION SCH ×2 (08:08→19:36)
--- NOTE | 2020-08-18 09:24 | XR ---
EXAMINATION TYPE: XR chest 1V portable DATE OF EXAM: 08/18/2020 COMPARISON: Chest x-ray 08/17/2020 HISTORY: Pneumonia TECHNIQUE: Single frontal view of the chest is obtained. FINDINGS: Bilateral airspace disease shows a similar appearance. No evident pneumothorax or pleural effusion. Cardiac mediastinal silhouette is stable accounting for rotation. IMPRESSION: Bilateral pneumonia
--- NOTE | 2020-08-18 15:30 | P.PN ---
Subjective Acute COVID-19 viral pneumonia Patient is a 50-year-old male with a known history of hypertension, GERD, lower GI bleed, right shoulder injury/pain presents to ER with complaints of generalized weakness and body aches and fever and chills and worsening shortness of breath for the past 4 days. Patient was seen at his PCPs office yesterday and tested for COVID-19 which came out positive. Patient states that he developed shortness of breath this morning and his pulse ox was 88% on room air. Patient presented to ER for evaluation. 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 No complaints of chest pain. No nausea vomiting or abdominal pain or diarrhea. Denied any loss of smell. Patient did have headache this morning. Currently denies any headache. Chest x-ray showed bilateral pneumonia. EKG showed normal sinus rhythm Laboratory data showed lymphocyte count 0.7, WBC 9.3, D-dimer 0.38 Bicarb is 35 Lactic acid 2.6 Magnesium 1.7, ferritin 1161, AST 71 ALT 50 and LDH 1093 and CRP 142 Procalcitonin 0.24 08/16/2020 Patient is currently resting in bed comfortably. No complaints of chest pain or worsening shortness of breath. No acute distress. Awake alert when x3. Pat ient is currently requiring oxygen 5 L via nasal cannula. Patient has been febrile with T-max 101.7 Laboratory reviewed. Chest x-ray showed consistent with bilateral pneumonia. Currently being treated dexamethasone, Lovenox and remdesivir. Patient is also on antibiotics in the form of azithromycin. Pulmonary is on board. 08/17/2020 Patient is awake alert oriented x3. Still requiring oxygen at 5 L via nasal cannula. T-max is 99.2 patient has been afebrile currently. No nausea vomiting or abdominal pain or diarrhea. Chest x-ray showed limited exam demonstrates multifocal airspace disease correlate for pneumonia. Patient is being continued on remdesivir day 3. 08/18/2020 Patient respiratory status appears to be worsening and patient is presently on 10 L of oxygen patient will be closely monitored and the patient continues to be on Decadron and did receive remdesivir and plasma.patient doesn't appear to be doing well at this time. Still short of breath on 10 L of oxygen and saturating atlow 90s and patient is presently on Lovenox 40 mg subcutaneous. D-dimer is 0.74, chest x-ray continues to show significant bilateral infiltrate Constitutional: Denied any fatigue denied any fever. Cardio vascular: denied any chest pain, palpitations Gastrointestinal denied any nausea vomiting Pulmonary: continuous to be short of breath Neurologic denied any new focal deficits All inpatient medications were reviewed and appropriate changes in these medications as dictated in the interval history and assessment and plan. Objective - Vital Signs Vital signs: Vital Signs Temp 98.1 F 08/18/20 14:40 Pulse 74 08/18/20 14:40 Resp 22 08/18/20 14:40 BP 131/80 08/18/20 14:40 Pulse Ox 91 L 08/18/20 14:40 Intake & Output 08/17/20 08/18/20 08/18/20 18:59 06:59 18:59 Intake Total 400 604 Output Total 1400 400 800 Balance -1000 204 -800 Intake: Oral 400 400 Blood Product 204 Ffp Pher Conval Covid19 204 Acda 1 Unit [id number] Output: Urine 1400 400 800 Other: Voiding Method Toilet Toilet Urinal Urinal # Voids 3 2 - Exam PHYSICAL EXAMINATION: GENERAL: The patient is alert and oriented x3, patient is in mild respiratory distress on 10 L of oxygen. Well developed, well nourished. HEENT: Pupils are round and equally reacting to light. EOMI. No scleral icterus. No conjunctival pallor. Normocephalic, atraumatic. No pharyngeal erythema. No thyromegaly. CARDIOVASCULAR: S1 and S2 present. No murmurs, rubs, or gallops. PULMONARY: Chest is clear to auscultation, no wheezing or crackles. ABDOMEN: Soft, nontender, nondistended, normoactive bowel sounds. No palpable organomegaly. MUSCULOSKELETAL: No joint swelling or deformity. EXTREMITIES: No cyanosis, clubbing, or pedal edema. NEUROLOGICAL: Gross neurological examination did not reveal any focal deficits. SKIN: No rashes. Note: Because of COVID 19 isolation, some of the history and physical exam findings are indirect and obtained from nursing staff, and other physician examinations to avoid unnecessary contact with the patient. - Labs CBC & Chem 7: 08/18/20 05:58 08/17/20 19:30 Labs: Abnormal Lab Results - Last 24 Hours (Table) 08/17/20 08/17/20 08/18/20 Range/Units 19:30 19:30 05:58 Lymphocytes # 0.9 L (1.0-4.8) k/uL Fibrinogen 513 H (200-500) mg/dL D-Dimer 0.74 H (<0.60) mg/L FEU Carbon Dioxide 34.7 H (21.6-31.8) mmol/L Glucose 163 H (70-110) mg/dL Calcium 8.4 L (8.7-10.3) mg/dL Ferritin 1439.1 H (22.0-322.0) ng/mL AST 45 H (14-35) U/L Lactate Dehydrogenase (120-246) U/L C-Reactive Protein 9.6 H (0.0-0.8) mg/dL 08/18/20 Range/Units 05:58 Lymphocytes # (1.0-4.8) k/uL Fibrinogen (200-500) mg/dL D-Dimer (<0.60) mg/L FEU Carbon Dioxide (21.6-31.8) mmol/L Glucose (70-110) mg/dL Calcium (8.7-10.3) mg/dL Ferritin (22.0-322.0) ng/mL AST (14-35) U/L Lactate Dehydrogenase 531 H (120-246) U/L C-Reactive Protein (0.0-0.8) mg/dL Microbiology - Last 24 Hours (Table) 08/15/20 11:23 Blood Culture - Preliminary Blood No Growth after 72 hours Assessment and Plan Plan: Acute COVID-19 viral pneumoniacan use oxygen support close monitoring if needed patient will be transferred to ICU [address] with Decadron 6 mg along with Lovenox 40 mg and patient is fourth day of Remdesivir Acute hypoxic respiratory failure secondary to COVID-19 viral infection Sepsis Lactic acidosis resolved GERD History of GI bleed and gastric ulcer Hypertension DVT prophylaxis with Lovenox subcu
--- NOTE | 2020-08-18 16:22 | P.PN ---
Subjective Progress Note Date: 08/18/20 Principal diagnosis: CoVID 19 pneumonia This is a 50-year-old male patient of Dr. Meera Dominguez that tested positive for COVID19 as of yesterday. Patient still was having symptoms of body aches, malaise, shortness of breath for the past 4 days. 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 He may have had the exposure to COVID 19 at work. He reports multiple staff members sick. This morning patient developed worsening shortness of breath, hypoxemia, his pulse ox was 88% on room air. Chest x-ray in the emergency department showed bilateral patchy airspace disease, his lab work showed lymphopenia, with lymphocyte count of 0.7, correlat ion profile and d-dimer were within normal limits, d-dimer was 0.38, his plasma lactic acid was 2.6, his LDH and CRP were elevated at 1093 and 142.7 respectively. Patient was febrile presentation with a temp of 101.4F. He is on 3 L of oxygen a pulse ox of 90%, hemodynamically stable, his lactic acid is elevated on presentation, he was given IV hydration a total of 2 L and IV fluids, and maintenance IV fluid is 0.9 normal saline infusing at a rate of 100 ML per hour, he was started on oral Decadron, prophylactic doses of Lovenox, and we have started the patient on Remdesivir. The patient is seen today 08/16/2020 in follow-up on the regular medical floor. He is currently resting in bed. Awake and alert in no acute distress. Still having some mild headache and muscle aches. He is still requiring oxygen at 5 L/m per nasal cannula to maintain O2 saturations in the low 90s. Earlier this morning had a T-max of 101.7. Currently afebrile. White count 7.6. Hemoglobin 13.1. He is continued on Remdesivir, vitamin C, vitamin D, Pepcid, zinc, melatonin, Lovenox. Antibiotics in the form of azithromycin. Check stat x-ray continues to show bilateral pneumonia. The patient is seen today 08/17/2020 in follow-up on the regular medical floor. He is currently resting in bed. Breathing a bit more difficult today compared to yesterday. He did require increase oxygen up to 8 L high flow nasal cannula for a little while earlier this morning. Currently back down to 5 L. He is 93% O2 saturation. Temperature 99.2. White count 6.9. Hemoglobin 13.9. He is receiving day #3 of Remdesivir. Chest x-ray continues to show multifocal airspace disease. He is continued on vitamin C, vitamin D, Pepcid, zinc, melatonin, Lovenox. He did sleep in a prone position throughout the night. The patient is seen today 08/18/2020 in follow-up on the regular medical floor. He is awake and alert in no acute distress. Breathing about the same today as compared to yesterday. May be a bit better. Still requiring 8 L high flow nasal cannula to maintain O2 saturations in the 90s. He has been afebrile. White count 8.8. Hemoglobin 13.7. Lymphocytes 0.9. LDH 531. This is day 4 of Remdesivir. No significant change in the chest x-ray with bilateral pneumonia. Objective - Vital Signs Vital signs: Vital Signs Temp 98.1 F 08/18/20 14:40 Pulse 74 08/18/20 14:40 Resp 22 08/18/20 14:40 BP 131/80 08/18/20 14:40 Pulse Ox 91 L 08/18/20 14:40 Intake & Output 08/17/20 08/18/20 08/18/20 18:59 06:59 18:59 Intake Total 400 604 Output Total 1400 400 800 Balance -1000 204 -800 Intake: Oral 400 400 Blood Product 204 Ffp Pher Conval Covid19 204 Acda 1 Unit [id number] Output: Urine 1400 400 800 Other: Voiding Method Toilet Toilet Urinal Urinal # Voids 3 2 - Exam GENERAL EXAM: Alert, pleasant 50-year-old gentleman, on 8 L nasal cannula fairly comfortable in no apparent distress. HEAD: Normocephalic. EYES: Normal reaction of pupils, equal size. NOSE: Clear with pink turbinates. THROAT: No erythema or exudates. NECK: No masses, no JVD. CHEST: No chest wall deformity. LUNGS: Equal air entry with basilar crackles. CVS: S1 and S2 normal with no audible murmur, regular rhythm. ABDOMEN: No hepatosplenomegaly, normal bowel sounds, no guarding or rigidity. SPINE: No scoliosis or deformity SKIN: No rashes CENTRAL NERVOUS SYSTEM: No focal deficits, tone is normal in all 4 extremities. EXTREMITIES: There is no peripheral edema. No clubbing, no cyanosis. Peripheral pulses are intact. - Labs CBC & Chem 7: 08/18/20 05:58 08/17/20 19:30 Labs: Abnormal Lab Results - Last 24 Hours (Table) 08/17/20 08/17/20 08/18/20 Range/Units 19:30 19:30 05:58 Lymphocytes # 0.9 L (1.0-4.8) k/uL Fibrinogen 513 H (200-500) mg/dL D-Dimer 0.74 H (<0.60) mg/L FEU Carbon Dioxide 34.7 H (21.6-31.8) mmol/L Glucose 163 H (70-110) mg/dL Calcium 8.4 L (8.7-10.3) mg/dL Ferritin 1439.1 H (22.0-322.0) ng/mL AST 45 H (14-35) U/L Lactate Dehydrogenase (120-246) U/L C-Reactive Protein 9.6 H (0.0-0.8) mg/dL 08/18/20 Range/Units 05:58 Lymphocytes # (1.0-4.8) k/uL Fibrinogen (200-500) mg/dL D-Dimer (<0.60) mg/L FEU Carbon Dioxide (21.6-31.8) mmol/L Glucose (70-110) mg/dL Calcium (8.7-10.3) mg/dL Ferritin (22.0-322.0) ng/mL AST (14-35) U/L Lactate Dehydrogenase 531 H (120-246) U/L C-Reactive Protein (0.0-0.8) mg/dL Microbiology - Last 24 Hours (Table) 08/15/20 11:23 Blood Culture - Preliminary Blood No Growth after 72 hours Assessment and Plan Assessment: 1 Acute hypoxic respiratory failure related to acute COVID19 related pneumonia, tested positive for Covid 19 on 08/14/2020, started on Remdesivir on 08/15/2020, received convalescent plasma 2 Elevated inflammatory markers related to the above 3 Mild lactic acidosis, improved with IV hydration 4 Febrile illness, body aches, dyspnea, related to viral pneumonia secondary to Covid 19 5 History of anxiety/panic disorder 6 Lifetime nonsmoker 7 Hypertension 8 Chronic pain 9 GERD/reflux Plan: The patient was seen and evaluated by Dr. Mayen Chest x-ray and labs reviewed Continue Remdesivir Continue vitamin C, vitamin D, zinc, melatonin, Pepcid Continue Lovenox, dexamethasone Received convalescent plasma Titrate FiO2 as tolerated Continue bronchodilators Prone positioning as tolerated Continue isolation precautions We'll continue to follow I, the cosigning physician, performed a history & physical examination of the patient. Lungs sounds bilateral crackles, few scattered rhonchi. Maintaining good O2 saturations in the 90s on 8 L/m per nasal cannula I discussed the assessment and plan of care with my nurse practitioner, Kalie Talbert. I attest to the above note as dictated by her.
[2020-08-18] MEDS: REMDESIVIR (EUA) 100 MG in SODIUM CHLORIDE 0.9% 250 ML IVPB SCH (16:23)
[2020-08-18] MEDS: IBUPROFEN 400 MG TAB PO PRN (19:38)
[2020-08-18] MEDS: MELATONIN 5 MG TABLET PO SCH (21:11)
[2020-08-19] MEDS: SODIUM CHLORIDE 0.9% 1,000 ML IV SCH ×2 (01:44→16:36)
[2020-08-19] MEDS: ALBUTEROL HFA INHALER INHALATION SCH ×4 (07:42→21:35)
[2020-08-19] MEDS: SYMBICORT 160-4.5 MCG INHALER INHALATION SCH ×2 (07:42→21:35)
[2020-08-19] MEDS: ONDANSETRON 4 MG/2 ML VIAL IVP PRN (07:44)
[2020-08-19] MEDS: ALPRAZolam 0.25 MG TAB PO PRN ×2 (09:14→22:53)
[2020-08-19] MEDS: FAMOTIDINE 20 MG TAB PO SCH ×2 (10:07→22:05)
[2020-08-19] MEDS: amLODIPine 5 MG TAB PO SCH (10:07)
[2020-08-19] MEDS: dexAMETHasone 2 MG TAB PO SCH (10:07)
[2020-08-19] MEDS: ASCORBIC ACID 500 MG TAB PO SCH (10:07)
[2020-08-19] MEDS: DULoxetine HCL 60 MG CAPSULE.DR PO SCH (10:08)
[2020-08-19] MEDS: ZINC SULFATE 220 MG CAP PO SCH (10:08)
[2020-08-19] MEDS: CHOLECALCIFEROL 1,000 UNIT TAB PO SCH (10:08)
[2020-08-19] MEDS: NON FORMULARY DRUG (Buprenorphine Hcl/Naloxone Hcl [Suboxone 8 Mg-2 Mg Sl Film] 1 EACH Fil SUBLINGUAL SCH (10:08)
[2020-08-19] MEDS: lisinopriL 20 MG TAB PO SCH (10:08)
--- NOTE | 2020-08-19 11:56 | XR ---
EXAMINATION TYPE: XR chest 1V portable DATE OF EXAM: 08/19/2020 CLINICAL HISTORY: covid. TECHNIQUE: Portable frontal view of the chest. COMPARISON: 08/18/2020 chest radiograph FINDINGS: The cardiomediastinal silhouette is within normal limits for size. Bilateral diffuse airsp ramila opacities are increased versus 08/18/2020. No pleural effusion, or pneumothorax seen. The osseous structures are intact. IMPRESSION: Diffuse bilateral airspace opacities are increased versus 08/18/2020.
[2020-08-19] MEDS: ENOXAPARIN 60 MG/0.6 ML SYRINGE SQ SCH ×2 (12:43→22:05)
--- NOTE | 2020-08-19 12:53 | P.PN ---
Subjective Progress Note Date: 08/19/20 Principal diagnosis: Acute hypoxic respiratory failure secondary to covid 19 pneumonitis. This is a 50-year-old male patient of Dr. Meera Dominguez that tested positive for COVID19 as of yesterday. Patient still was having symptoms of body aches, malaise, shortness of breath for the past 4 days. 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 He may have had the exposure to COVID 19 at work. He reports multiple staff members sick. This morning patient developed worsening shortness of breath, hypoxemia, his pulse ox was 88% on room air. Chest x-ray in the emergency department showed bilateral patchy airspace disease, his lab work showed lymphopenia, with lymphocyte count of 0.7, correlation profile and d-dimer were within normal limits, d-dimer was 0.38, his plasma lactic acid was 2.6, his LDH and CRP were elevated at 1093 and 142.7 r espectively. Patient was febrile presentation with a temp of 101.4F. He is on 3 L of oxygen a pulse ox of 90%, hemodynamically stable, his lactic acid is elevated on presentation, he was given IV hydration a total of 2 L and IV fluids, and maintenance IV fluid is 0.9 normal saline infusing at a rate of 100 ML per hour, he was started on oral Decadron, prophylactic doses of Lovenox, and we have started the patient on Remdesivir. The patient is seen today 08/16/2020 in follow-up on the regular medical floor. He is currently resting in bed. Awake and alert in no acute distress. Still having some mild headache and muscle aches. He is still requiring oxygen at 5 L/m per nasal cannula to maintain O2 saturations in the low 90s. Earlier this morning had a T-max of 101.7. Currently afebrile. White count 7.6. Hemoglobin 13.1. He is continued on Remdesivir, vitamin C, vitamin D, Pepcid, zinc, melatonin, Lovenox. Antibiotics in the form of azithromycin. Check stat x-ray continues to show bilateral pneumonia. The patient is seen today 08/17/2020 in follow-up on the regular medical floor. He is currently resting in bed. Breathing a bit more difficult today compared to yesterday. He did require increase oxygen up to 8 L high flow nasal cannula for a little while earlier this morning. Currently back down to 5 L. He is 93% O2 saturation. Temperature 99.2. White count 6.9. Hemoglobin 13.9. He is receiving day #3 of Remdesivir. Chest x-ray continues to show multifocal a irspace disease. He is continued on vitamin C, vitamin D, Pepcid, zinc, melatonin, Lovenox. He did sleep in a prone position throughout the night. The patient is seen today 08/18/2020 in follow-up on the regular medical floor. He is awake and alert in no acute distress. Breathing about the same today as compared to yesterday. May be a bit better. Still requiring 8 L high flow nasal cannula to maintain O2 saturations in the 90s. He has been afebrile. White count 8.8. Hemoglobin 13.7. Lymphocytes 0.9. LDH 531. This is day 4 of Remdesivir. No significant change in the chest x-ray with bilateral pneumonia. Patient was reevaluated today on 08/19/20, patient was noted to develop more shortness of breath, and has been requiring higher FiO2. Patient is now on airvo with FiO2 of 50% and flow of 60 L/m. Patient feels that his shortness of breath is more pronounced at night. Continues to have intermittent episodes of cough, minimal wheezing, low-grade fever with a T-max of 98.8. Generalized weakness, no other symptoms, no GI symptoms. Considering the dramatic increase in FiO2, I have recommended transferring the patient down to the ICU today. Chest x-ray is showing worsening of his bilateral interstitial infiltrates. And that is more of the reason to transfer the patient to the ICU however he does not need to be intubated and mechanically ventilated at this point. Objective - Vital Signs Vital signs: Vital Signs Temp 98.1 F 08/19/20 07:35 Pulse 67 08/19/20 07:35 Resp 16 08/19/20 07:35 BP 142/90 08/19/20 07:35 Pulse Ox 90 L 08/19/20 08:16 Intake & Output 08/18/20 08/19/20 08/19/20 18:59 06:59 18:59 Intake Total 540 100 Output Total 800 2813 7039 Balance -706 -8091 -963 Intake: IV 100 Sodium Chloride 0.9% 1, 100 000 ml @ 100 mls/hr IV . Q10H COUNT INCLUDES THE [facility] Rx#:[id number] Oral 540 Output: Urine 800 2500 1075 Other: Voiding Method Toilet Toilet Urinal Urinal Urinal # Voids 2 - Exam GENERAL EXAM: Revealed 50-year-old white male in mild distress. Comfortable with airvo at present settings. HEAD: Normocephalic. EYES: Normal reaction of pupils, equal size. NOSE: Clear with pink turbinates. THROAT: No erythema or exudates. NECK: No masses, no JVD. CHEST: No chest wall deformity. LUNGS: Equal air entry , crackles noted bilaterally. No wheezes. CVS: S1 and S2 normal with no audible murmur, regular rhythm. ABDOMEN: No hepatosplenomegaly, normal bowel sounds, no guarding or rigidity. SPINE: No scoliosis or deformity SKIN: No rashes CENTRAL NERVOUS SYSTEM: No focal deficits, tone is normal in all 4 extremities. EXTREMITIES: There is no peripheral edema. No clubbing, no cyanosis. Peripheral pulses are intact. - Labs CBC & Chem 7: 08/18/20 05:58 08/17/20 19:30 Labs: Microbiology - Last 24 Hours (Table) 08/15/20 11:23 Blood Culture - Preliminary Blood No Growth after 72 hours Assessment and Plan Assessment: Impression: Acute hypoxic respiratory failure secondary to covid 19 pneumonitis. Patient tested positive on 08/14 and started on treatment including convalescent plasma 08/15/20 and remdesivir 08/14/20 Hypertension GERD without esophagitis. Lifetime nonsmoker. Recommendation: Continue present treatment plan. Continue Decadron. Titrate FiO2 to keep O2 saturation above 90%. Considering the changes noted clinically, I will transfer the patient to the ICU. We will continue to follow. Time with Patient: Less than 30
[2020-08-19] MEDS: REMDESIVIR (EUA) 100 MG in SODIUM CHLORIDE 0.9% 250 ML IVPB SCH (16:36)
--- NOTE | 2020-08-19 17:15 | P.PN ---
Subjective Acute COVID-19 viral pneumonia Patient is a 50-year-old male with a known history of hypertension, GERD, lower GI bleed, right shoulder injury/pain presents to ER with complaints of generalized weakness and body aches and fever and chills and worsening shortness of breath for the past 4 days. Patient was seen at his PCPs office yesterday and tested for COVID-19 which came out positive. Patient states that he developed shortness of breath this morning and his pulse ox was 88% on room air. Patient presented to ER for evaluation. 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 No complaints of chest pain. No nausea vomiting or abdominal pain or diarrhea. Denied any loss of smell. Patient did have headache this morning. Currently denies any headache. Chest x-ray showed bilateral pneumonia. EKG showed normal sinus rhythm Laboratory data showed lymphocyte count 0.7, WBC 9.3, D-dimer 0.38 Bicarb is 35 Lactic acid 2.6 Magnesium 1.7, ferritin 1161, AST 71 ALT 50 and LDH 1093 and CRP 142 Procalcitonin 0.24 08/16/2020 Patient is currently resting in bed comfortably. No complaints of chest pain or worsening shortness of breath. No acute distress. Awake alert when x3. Pat ient is currently requiring oxygen 5 L via nasal cannula. Patient has been febrile with T-max 101.7 Laboratory reviewed. Chest x-ray showed consistent with bilateral pneumonia. Currently being treated dexamethasone, Lovenox and remdesivir. Patient is also on antibiotics in the form of azithromycin. Pulmonary is on board. 08/17/2020 Patient is awake alert oriented x3. Still requiring oxygen at 5 L via nasal cannula. T-max is 99.2 patient has been afebrile currently. No nausea vomiting or abdominal pain or diarrhea. Chest x-ray showed limited exam demonstrates multifocal airspace disease correlate for pneumonia. Patient is being continued on remdesivir day 3. 08/18/2020 Patient respiratory status appears to be worsening and patient is presently on 10 L of oxygen patient will be closely monitored and the patient continues to be on Decadron and did receive remdesivir and plasma.patient doesn't appear to be doing well at this time. Still short of breath on 10 L of oxygen and saturating atlow 90s and patient is presently on Lovenox 40 mg subcutaneous. D-dimer is 0.74, chest x-ray continues to show significant bilateral infiltrate. 08/19/2020 Patient respiratory status has worsened patient remains on Decadron and the patient was transferred to ICU presently on FiO2 of 50% and flow of around 60 L per minute. Patient is not in respiratory distress. Constitutional: Denied any fatigue denied any fever. Cardio vascular: denied any chest pain, palpitations Gastrointestinal denied any nausea vomiting Pulmonary: continuous to be short of breath Neurologic denied any new focal deficits All inpatient medications were reviewed and appropriate changes in these medications as dictated in the interval history and assessment and plan. Objective - Vital Signs Vital signs: Vital Signs Temp 98 F 08/19/20 16:00 Pulse 90 08/19/20 16:00 Resp 20 08/19/20 16:00 BP 134/90 08/19/20 16:00 Pulse Ox 95 08/19/20 16:00 Intake & Output 08/18/20 08/19/20 08/19/20 18:59 06:59 18:59 Intake Total 540 500 Output Total 800 2500 1700 Balance -800 -1960 -1200 Intake: IV 500 Sodium Chloride 0.9% 1, 500 000 ml @ 100 mls/hr IV . Q10H [facility] Rx#:[id number] Oral 540 Output: Urine 800 2500 1700 Other: Voiding Method Toilet Toilet Urinal Urinal Urinal # Voids 2 - Exam PHYSICAL EXAMINATION: GENERAL: The patient is alert and oriented x3, patient is not in respiratory distress on 60 L of oxygen. Well developed, well nourished. HEENT: Pupils are round and equally reacting to light. EOMI. No scleral icterus. No conjunctival pallor. Normocephalic, atraumatic. No pharyngeal erythema. No th yromegaly. CARDIOVASCULAR: S1 and S2 present. No murmurs, rubs, or gallops. PULMONARY: Chest is clear to auscultation, no wheezing or crackles. ABDOMEN: Soft, nontender, nondistended, normoactive bowel sounds. No palpable organomegaly. MUSCULOSKELETAL: No joint swelling or deformity. EXTREMITIES: No cyanosis, clubbing, or pedal edema. NEUROLOGICAL: Gross neurological examination did not reveal any focal deficits. SKIN: No rashes. Note: Because of COVID 19 isolation, some of the history and physical exam findings are indirect and obtained from nursing staff, and other physician examinations to avoid unnecessary contact with the patient. - Labs CBC & Chem 7: 08/18/20 05:58 08/17/20 19:30 Labs: Microbiology - Last 24 Hours (Table) 08/15/20 11:23 Blood Culture - Preliminary Blood No Growth after 96 hours Assessment and Plan Plan: Acute COVID-19 viral pneumoniacan use oxygen support close monitoring if needed patient will be transferred to ICU [address] with Decadron 6 mg along with Lovenox 40 mg and patient is fourth day of Remdesivirthe patient was pretty status has worsened compared to yesterday. But it's expected to improve.patient is an 60 the dose of oxygen Acute hypoxic respiratory failure secondary to COVID-19 viral infection Sepsis Lactic acidosis resolved GERD History of GI bleed and gastric ulcer Hypertension DVT prophylaxis with Lovenox subcu
[2020-08-19 19:46] LABS: D-Dimer 0.99 mg/L FEU (<0.60)
[2020-08-19] MEDS: MELATONIN 5 MG TABLET PO SCH (22:05)
[2020-08-20 05:59] LABS: Basophils # (A) 0.3 k/uL (0-0.2); Basophils % (A) 2 %; Eosinophils % (A) 0 %; HCT 42.2 % (39.0-53.0); HGB 14.1 gm/dL (13.0-17.5); Lymphocytes # (A) 1.5 k/uL (1.0-4.8); Lymphocytes % (A) 11 %; MCH 31.5 pg (25.0-35.0); MCHC 33.3 g/dL (31.0-37.0); MCV 94.7 fL (80.0-100.0); Mean Platelet Volume 6.4; Monocytes % (A) 7 %; Neutrophils # (A) 11.4 k/uL (1.3-7.7); Neutrophils % (A) 78 %; Platelet Count 369 k/uL (150-450); RBC 4.46 m/uL (4.30-5.90); WBC 14.6 k/uL (3.8-10.6)
[2020-08-20 06:12] LABS: ALT 31 U/L (4-49); AST 33 U/L (17-59); African American GFR (CKD) >90 (>60 ml/min/1.73 sqM); Albumin 3.2 g/dL (3.5-5.0); Alkaline Phosphatase 68 U/L (38-126); Anion Gap 5 mmol/L; Blood Urea Nitrogen 16 mg/dL (9-20); Calcium 8.6 mg/dL (8.4-10.2); Carbon Dioxide 33 mmol/L (22-30); Chloride 95 mmol/L (98-107); Creatine Kinase 25 U/L (55-170); Glucose 121 mg/dL (74-99); LDH 1020 U/L (313-618); Non-African American GFR(CKD) >90 (>60 ml/min/1.73 sqM); Potassium 4.1 mmol/L (3.5-5.1); Sodium 133 mmol/L (137-145); Total Bilirubin 0.8 mg/dL (0.2-1.3); Total Protein 6.3 g/dL (6.3-8.2)
--- NOTE | 2020-08-20 07:16 | XR ---
EXAMINATION TYPE: XR chest 1V portable DATE OF EXAM: 08/20/2020 COMPARISON: 08/19/2020 HISTORY: COVID19 pneumonia TECHNIQUE: Single frontal view of the chest is obtained. FINDINGS: Diffuse mixed infiltrates persist without significant interval change. The cardiac silhouette size is within normal limits. The osseous structures are intact. IMPRESSION: 1. Diffuse mixed infiltrates persist without significant interval change.
[2020-08-20] MEDS: ASCORBIC ACID 500 MG TAB PO SCH (09:09)
[2020-08-20] MEDS: DULoxetine HCL 60 MG CAPSULE.DR PO SCH (09:09)
[2020-08-20] MEDS: amLODIPine 5 MG TAB PO SCH (09:09)
[2020-08-20] MEDS: lisinopriL 20 MG TAB PO SCH (09:09)
[2020-08-20] MEDS: ENOXAPARIN 60 MG/0.6 ML SYRINGE SQ SCH ×2 (09:10→21:44)
[2020-08-20] MEDS: FAMOTIDINE 20 MG TAB PO SCH ×2 (09:10→21:44)
[2020-08-20] MEDS: CHOLECALCIFEROL 1,000 UNIT TAB PO SCH (09:10)
[2020-08-20] MEDS: NON FORMULARY DRUG (Buprenorphine Hcl/Naloxone Hcl [Suboxone 8 Mg-2 Mg Sl Film] 1 EACH Fil SUBLINGUAL SCH (09:11)
[2020-08-20] MEDS: dexAMETHasone 2 MG TAB PO SCH (09:11)
[2020-08-20] MEDS: ZINC SULFATE 220 MG CAP PO SCH (09:12)
[2020-08-20] MEDS: ALBUTEROL HFA INHALER INHALATION SCH ×4 (09:22→21:33)
[2020-08-20] MEDS: SYMBICORT 160-4.5 MCG INHALER INHALATION SCH ×2 (09:22→21:34)
[2020-08-20 09:33] LABS: African American GFR (CKD) 128.4 (60.0-200.0); Albumin 3.8 g/dL (3.80-4.90); Albumin/Globulin Ratio 1.52 (1.60-3.17); Anion Gap 10.2 mmol/L (4.00-12.00); C Reactive Protein 5.7 mg/dL (0.0-0.8); Calcium 8.7 mg/dL (8.7-10.3); Carbon Dioxide 28.8 mmol/L (21.6-31.8); Ferritin 729.9 ng/mL (22.0-322.0); Globulin 2.5 g/dL (1.6-3.3); Non-African American GFR(CKD) 110.8 (60.0-200.0); Potassium 5.8 mmol/L (3.5-5.5); Total Bilirubin 0.5 mg/dL (0.3-1.2); Total Protein 6.3 g/dL (6.2-8.2)
--- NOTE | 2020-08-20 14:16 | P.PN ---
Subjective Progress Note Date: 08/20/20 Principal diagnosis: Acute hypoxic respiratory failure secondary to covid 19 pneumonitis. This is a 50-year-old male patient of Dr. Meera Dominguez that tested positive for COVID19 as of yesterday. Patient still was having symptoms of body aches, malaise, shortness of breath for the past 4 days. 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 He may have had the exposure to COVID 19 at work. He reports multiple staff members sick. This morning patient developed worsening shortness of breath, hypoxemia, his pulse ox was 88% on room air. Chest x-ray in the emergency department showed bilateral patchy airspace disease, his lab work showed lymphopenia, with lymphocyte count of 0.7, correlation profile and d-dimer were within normal limits, d-dimer was 0.38, his plasma lactic acid was 2.6, his LDH and CRP were elevated at 1093 and 142.7 r espectively. Patient was febrile presentation with a temp of 101.4F. He is on 3 L of oxygen a pulse ox of 90%, hemodynamically stable, his lactic acid is elevated on presentation, he was given IV hydration a total of 2 L and IV fluids, and maintenance IV fluid is 0.9 normal saline infusing at a rate of 100 ML per hour, he was started on oral Decadron, prophylactic doses of Lovenox, and we have started the patient on Remdesivir. The patient is seen today 08/16/2020 in follow-up on the regular medical floor. He is currently resting in bed. Awake and alert in no acute distress. Still having some mild headache and muscle aches. He is still requiring oxygen at 5 L/m per nasal cannula to maintain O2 saturations in the low 90s. Earlier this morning had a T-max of 101.7. Currently afebrile. White count 7.6. Hemoglobin 13.1. He is continued on Remdesivir, vitamin C, vitamin D, Pepcid, zinc, melatonin, Lovenox. Antibiotics in the form of azithromycin. Check stat x-ray continues to show bilateral pneumonia. The patient is seen today 08/17/2020 in follow-up on the regular medical floor. He is currently resting in bed. Breathing a bit more difficult today compared to yesterday. He did require increase oxygen up to 8 L high flow nasal cannula for a little while earlier this morning. Currently back down to 5 L. He is 93% O2 saturation. Temperature 99.2. White count 6.9. Hemoglobin 13.9. He is receiving day #3 of Remdesivir. Chest x-ray continues to show multifocal a irspace disease. He is continued on vitamin C, vitamin D, Pepcid, zinc, melatonin, Lovenox. He did sleep in a prone position throughout the night. The patient is seen today 08/18/2020 in follow-up on the regular medical floor. He is awake and alert in no acute distress. Breathing about the same today as compared to yesterday. May be a bit better. Still requiring 8 L high flow nasal cannula to maintain O2 saturations in the 90s. He has been afebrile. White count 8.8. Hemoglobin 13.7. Lymphocytes 0.9. LDH 531. This is day 4 of Remdesivir. No significant change in the chest x-ray with bilateral pneumonia. Patient was reevaluated today on 08/19/20, patient was noted to develop more shortness of breath, and has been requiring higher FiO2. Patient is now on airvo with FiO2 of 50% and flow of 60 L/m. Patient feels that his shortness of breath is more pronounced at night. Continues to have intermittent episodes of cough, minimal wheezing, low-grade fever with a T-max of 98.8. Generalized weakness, no other symptoms, no GI symptoms. Considering the dramatic increase in FiO2, I have recommended transferring the patient down to the ICU today. Chest x-ray is showing worsening of his bilateral interstitial infiltrates. And that is more of the reason to transfer the patient to the ICU however he does not need to be intubated and mechanically ventilated at this point. Patient was reevaluated today on 08/20/20, patient was transferred yesterday to the ICU and his oxygen requirement went up significantly. Patient is now on airvo at 85% FiO2 and 60 L flow. Patient is feeling a bit better today compared to how he felt last night. His O2 saturation is in the mid 90s. Patient felt tight last night, but he seems to be feeling a bit better today, breathing a bit easier. Chest x-ray continues to show diffuse interstitial infiltrates, not much of a change compared to the last 2 days. Patient remains hemodynamically stable, he is actually resting in bed and he looks very comfortable in spite of his hypoxemia and increased oxygen requirement. CBC is relatively normal WBC count is 14.6. Lymphocytes are 11%. RDW is 13.0. Electrolytes are normal LDH is 1020 increased compared to yesterday. And his C-reactive protein is remaining low at 5.7. Patient finished a full course of remdesivir, received 1 unit of convalescent plasma, and I plan to give him another unit of convalescent plasma today. Patient remains on Lovenox at 60 mg subcu every 12 hours. His d- dimer yesterday was increased to 0.99. And fibrinogen is 499. Objective - Vital Signs Vital signs: Vital Signs Temp 98 F 08/20/20 08:00 Pulse 64 08/20/20 09:00 Resp 13 08/20/20 09:00 BP 129/94 08/20/20 09:00 Pulse Ox 96 08/20/20 12:37 Intake & Output 08/19/20 08/20/20 08/20/20 18:59 06:59 18:59 Intake Total 640 720 60 Output Total 2600 1075 1000 Balance -5797 -355 -940 Weight 133.6 kg Intake: IV 640 220 60 Sodium Chloride 0.9% 1, 640 220 60 000 ml @ 100 mls/hr IV . Q10H HERMELINDA Rx#:[id number] Oral 500 Output: Urine 2600 1075 1000 Other: Voiding Method Urinal Urinal Urinal # Voids 0 0 - Exam GENERAL EXAM: Revealed 50-year-old white male , pleasant Comfortable with airvo at 85% and 60 L flow per minute. HEAD: Normocephalic. EYES: Normal reaction of pupils, equal size. NOSE: Clear with pink turbinates. THROAT: No erythema or exudates. NECK: No masses, no JVD. CHEST: No chest wall deformity. LUNGS: Equal air entry , crackles noted bilaterally. No wheezes. CVS: S1 and S2 normal with no audible murmur, regular rhythm. ABDOMEN: No hepatosplenomegaly, normal bowel sounds, no guarding or rigidity. SPINE: No scoliosis or deformity SKIN: No rashes CENTRAL NERVOUS SYSTEM: No focal deficits, tone is normal in all 4 extremities. EXTREMITIES: There is no peripheral edema. No clubbing, no cyanosis. Peripheral pulses are intact. - Labs CBC & Chem 7: 08/20/20 05:44 08/20/20 05:44 Labs: Abnormal Lab Results - Last 24 Hours (Table) 08/19/20 08/19/20 08/20/20 Range/Units 19:15 19:15 05:44 WBC 14.6 H (3.8-10.6) k/uL Neutrophils # 11.4 H (1.3-7.7) k/uL Basophils # 0.3 H (0-0.2) k/uL D-Dimer 0.99 H (<0.60) mg/L FEU Sodium (137-145) mmol/L Potassium 5.8 H (3.5-5.5) mmol/L Chloride (98-107) mmol/L Carbon Dioxide (22-30) mmol/L Glucose 144 H (70-110) mg/dL Ferritin 729.9 H (22.0-322.0) ng/mL AST 40 H (14-35) U/L Lactate Dehydrogenase (313-618) U/L Creatine Kinase (55-170) U/L C-Reactive Protein 5.7 H (0.0-0.8) mg/dL Albumin (3.5-5.0) g/dL Albumin/Globulin Ratio 1.52 L (1.60-3.17) g/dL 08/20/20 Range/Units 05:44 WBC (3.8-10.6) k/uL Neutrophils # (1.3-7.7) k/uL Basophils # (0-0.2) k/uL D-Dimer (<0.60) mg/L FEU Sodium 133 L (137-145) mmol/L Potassium (3.5-5.5) mmol/L Chloride 95 L (98-107) mmol/L Carbon Dioxide 33 H (22-30) mmol/L Glucose 121 H (70-110) mg/dL Ferritin (22.0-322.0) ng/mL AST (14-35) U/L Lactate Dehydrogenase 1020 H (313-618) U/L Creatine Kinase 25 L (55-170) U/L C-Reactive Protein (0.0-0.8) mg/dL Albumin 3.2 L (3.5-5.0) g/dL Albumin/Globulin Ratio (1.60-3.17) g/dL Microbiology - Last 24 Hours (Table) 08/15/20 11:23 Blood Culture - Preliminary Blood No Growth after 120 hours Assessment and Plan Assessment: Impression: Acute hypoxic respiratory failure secondary to covid 19 pneumonitis. Patient tested positive on 08/14 and started on treatment including convalescent plasma 08/15/20 and remdesivir 08/14/20. Patient finished his full course of treatment and today I plan to give him another unit of convalescent plasma. Hypertension GERD without esophagitis. Lifetime nonsmoker. Recommendation: Continue to monitor the patient in the ICU. Give 1 more unit of convalescent plasma today. Continue Lovenox 60 mg subcu twice a day. Continue Decadron. Titrate FiO2 to keep O2 saturation above 90%. Prognosis is guarded. We will continue to follow. We will keep the patient in the ICU for now. Time with Patient: Less than 30
--- NOTE | 2020-08-20 15:31 | P.PN ---
Subjective Acute COVID-19 viral pneumonia Patient is a 50-year-old male with a known history of hypertension, GERD, lower GI bleed, right shoulder injury/pain presents to ER with complaints of generalized weakness and body aches and fever and chills and worsening shortness of breath for the past 4 days. Patient was seen at his PCPs office yesterday and tested for COVID-19 which came out positive. Patient states that he developed shortness of breath this morning and his pulse ox was 88% on room air. Patient presented to ER for evaluation. 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 No complaints of chest pain. No nausea vomiting or abdominal pain or diarrhea. Denied any loss of smell. Patient did have headache this morning. Currently denies any headache. Chest x-ray showed bilateral pneumonia. EKG showed normal sinus rhythm Laboratory data showed lymphocyte count 0.7, WBC 9.3, D-dimer 0.38 Bicarb is 35 Lactic acid 2.6 Magnesium 1.7, ferritin 1161, AST 71 ALT 50 and LDH 1093 and CRP 142 Procalcitonin 0.24 08/16/2020 Patient is currently resting in bed comfortably. No complaints of chest pain or worsening shortness of breath. No acute distress. Awake alert when x3. Pat ient is currently requiring oxygen 5 L via nasal cannula. Patient has been febrile with T-max 101.7 Laboratory reviewed. Chest x-ray showed consistent with bilateral pneumonia. Currently being treated dexamethasone, Lovenox and remdesivir. Patient is also on antibiotics in the form of azithromycin. Pulmonary is on board. 08/17/2020 Patient is awake alert oriented x3. Still requiring oxygen at 5 L via nasal cannula. T-max is 99.2 patient has been afebrile currently. No nausea vomiting or abdominal pain or diarrhea. Chest x-ray showed limited exam demonstrates multifocal airspace disease correlate for pneumonia. Patient is being continued on remdesivir day 3. 08/18/2020 Patient respiratory status appears to be worsening and patient is presently on 10 L of oxygen patient will be closely monitored and the patient continues to be on Decadron and did receive remdesivir and plasma.patient doesn't appear to be doing well at this time. Still short of breath on 10 L of oxygen and saturating atlow 90s and patient is presently on Lovenox 40 mg subcutaneous. D-dimer is 0.74, chest x-ray continues to show significant bilateral infiltrate. 08/19/2020 Patient respiratory status has worsened patient remains on Decadron and the patient was transferred to ICU presently on FiO2 of 50% and flow of around 60 L per minute. Patient is not in respiratory distress. number 06/01/2020 Patient remains on airvo , 60 L of oxygenchest x-ray showing diffuse interstitial infiltrates, LDH and other included markers are bit worse compared to yesterday. Finished course of remdesivir, received 1 unit of convalescent plasma. Constitutional: Denied any fatigue denied any fever. Cardio vascular: denied any chest pain, palpitations Gastrointestinal denied any nausea vomiting Pulmonary: continuous to be short of breath Neurologic denied any new focal deficits All inpatient medications were reviewed and appropriate changes in these medications as dictated in the interval history and assessment and plan. Objective - Vital Signs Vital signs: Vital Signs Temp 97.6 F 08/20/20 14:29 Pulse 64 08/20/20 14:29 Resp 24 08/20/20 14:29 BP 130/84 08/20/20 14:29 Pulse Ox 93 L 08/20/20 14:29 Intake & Output 08/19/20 08/20/20 08/20/20 18:59 06:59 18:59 Intake Total 640 720 560 Output Total 2600 1075 1999 Balance -5544 -906 -0108 Weight 133.6 kg Intake: IV 640 220 160 Sodium Chloride 0.9% 1, 640 220 160 000 ml @ 100 mls/hr IV . Q10H HERMELINDA Rx#:[id number] Oral 500 400 Blood Product 0 Ffp Pher Conval Covid19 0 Acda 3 Unit [id number] Output: Urine 2600 1075 1999 Other: Voiding Method Urinal Urinal Urinal # Voids 0 0 - Exam PHYSICAL EXAMINATION: GENERAL: The patient is alert and oriented x3, patient is not in respiratory distress on 60 L of oxygen. Well developed, well nourished. HEENT: Pupils are round and equally reacting to light. EOMI. No scleral icterus. No conjunctival pallor. Normocephalic, atraumatic. No pharyngeal erythema. No thyromegaly. CARDIOVASCULAR: S1 and S2 present. No murmurs, rubs, or gallops. PULMONARY: Chest is clear to auscultation, no wheezing or crackles. ABDOMEN: Soft, nontender, nondistended, normoactive bowel sounds. No palpable organomegaly. MUSCULOSKELETAL: No joint swelling or deformity. EXTREMITIES: No cyanosis, clubbing, or pedal edema. NEUROLOGICAL: Gross neurological examination did not reveal any focal deficits. SKIN: No rashes. Note: Because of COVID 19 isolation, some of the history and physical exam findings are indirect and obtained from nursing staff, and other physician examinations to avoid unnecessary contact with the patient. - Labs CBC & Chem 7: 08/20/20 05:44 08/20/20 05:44 Labs: Abnormal Lab Results - Last 24 Hours (Table) 08/19/20 08/19/20 08/20/20 Range/Units 19:15 19:15 05:44 WBC 14.6 H (3.8-10.6) k/uL Neutrophils # 11.4 H (1.3-7.7) k/uL Basophils # 0.3 H (0-0.2) k/uL D-Dimer 0.99 H (<0.60) mg/L FEU Sodium (137-145) mmol/L Potassium 5.8 H (3.5-5.5) mmol/L Chloride (98-107) mmol/L Carbon Dioxide (22-30) mmol/L Glucose 144 H (70-110) mg/dL Ferritin 729.9 H (22.0-322.0) ng/mL AST 40 H (14-35) U/L Lactate Dehydrogenase (313-618) U/L Creatine Kinase (55-170) U/L C-Reactive Protein 5.7 H (0.0-0.8) mg/dL Albumin (3.5-5.0) g/dL Albumin/Globulin Ratio 1.52 L (1.60-3.17) g/dL 08/20/20 Range/Units 05:44 WBC (3.8-10.6) k/uL Neutrophils # (1.3-7.7) k/uL Basophils # (0-0.2) k/uL D-Dimer (<0.60) mg/L FEU Sodium 133 L (137-145) mmol/L Potassium (3.5-5.5) mmol/L Chloride 95 L (98-107) mmol/L Carbon Dioxide 33 H (22-30) mmol/L Glucose 121 H (70-110) mg/dL Ferritin (22.0-322.0) ng/mL AST (14-35) U/L Lactate Dehydrogenase 1020 H (313-618) U/L Creatine Kinase 25 L (55-170) U/L C-Reactive Protein (0.0-0.8) mg/dL Albumin 3.2 L (3.5-5.0) g/dL Albumin/Globulin Ratio (1.60-3.17) g/dL Microbiology - Last 24 Hours (Table) 08/15/20 11:23 Blood Culture - Preliminary Blood No Growth after 120 hours Assessment and Plan Plan: Acute COVID-19 viral pneumoniacan use oxygen support close monitoring if needed patient will be transferred to ICU [address] with Decadron 6 mg along with Lovenox 40 mg and patient is fourth day of Remdesivirthe patient was pretty status has worsened compared to yesterday. But it's expected to improve.patient is an 60 the dose of oxygen Acute hypoxic respiratory failure secondary to COVID-19 viral infection Sepsis Lactic acidosis resolved GERD History of GI bleed and gastric ulcer Hypertension DVT prophylaxis with Lovenox subcu
[2020-08-20] MEDS: ONDANSETRON 4 MG/2 ML VIAL IVP PRN (17:42)
[2020-08-20] MEDS: ALPRAZolam 0.25 MG TAB PO PRN (18:50)
[2020-08-20] MEDS: MELATONIN 5 MG TABLET PO SCH (21:44)
[2020-08-21] MEDS: MELATONIN 5 MG TABLET PO SCH ×2 (02:15→20:01)
[2020-08-21 04:38] LABS: HCT 40.7 % (39.0-53.0); HGB 13.7 gm/dL (13.0-17.5); MCH 31.1 pg (25.0-35.0); MCHC 33.8 g/dL (31.0-37.0); MCV 92.1 fL (80.0-100.0); Mean Platelet Volume 6.3; Platelet Count 424 k/uL (150-450); RBC 4.41 m/uL (4.30-5.90); RDW 12.9 % (11.5-15.5); WBC 18.2 k/uL (3.8-10.6)
[2020-08-21 04:52] LABS: ALT 28 U/L (4-49); AST 27 U/L (17-59); African American GFR (CKD) >90 (>60 ml/min/1.73 sqM); Albumin 3.1 g/dL (3.5-5.0); Alkaline Phosphatase 77 U/L (38-126); Anion Gap 4 mmol/L; Blood Urea Nitrogen 18 mg/dL (9-20); C Reactive Protein 48.3 mg/L (<10.0); Calcium 8.5 mg/dL (8.4-10.2); Carbon Dioxide 33 mmol/L (22-30); Chloride 96 mmol/L (98-107); Creatine Kinase 25 U/L (55-170); Glucose 116 mg/dL (74-99); LDH 870 U/L (313-618); Non-African American GFR(CKD) >90 (>60 ml/min/1.73 sqM); Potassium 4.2 mmol/L (3.5-5.1); Sodium 133 mmol/L (137-145); Total Bilirubin 0.5 mg/dL (0.2-1.3); Total Protein 6.2 g/dL (6.3-8.2)
[2020-08-21 05:37] LABS: Band Neutrophils % 3 %; Lymphocytes # (M) 2.37 k/uL (1.0-4.8); Monocytes # (M) 1.82 k/uL (0-1.0); Neutrophils % (M) 74 %; Nucleated Red Blood Cells 0 /100 WBC (0-0); Total Cells Counted 100
--- NOTE | 2020-08-21 08:19 | XR ---
EXAMINATION TYPE: XR chest 1V portable DATE OF EXAM: 08/21/2020 COMPARISON: Prior chest x-ray 08/20/2020 HISTORY: Covid TECHNIQUE: Single frontal view of the chest is obtained. FINDINGS: Bilateral airspace disease persists. Lung volumes are low. Patient is rotated. Heart is st able. IMPRESSION: Findings consistent with patient's history. Bilateral pneumonia.
[2020-08-21] MEDS: ACETAMINOPHEN TAB 325 MG TAB PO PRN (08:22)
[2020-08-21] MEDS: ALPRAZolam 0.25 MG TAB PO PRN ×2 (08:22→20:01)
[2020-08-21] MEDS: ENOXAPARIN 60 MG/0.6 ML SYRINGE SQ SCH ×2 (08:22→20:01)
[2020-08-21] MEDS: dexAMETHasone 2 MG TAB PO SCH (08:23)
[2020-08-21] MEDS: ZINC SULFATE 220 MG CAP PO SCH (08:23)
[2020-08-21] MEDS: FAMOTIDINE 20 MG TAB PO SCH ×2 (08:28→20:01)
[2020-08-21] MEDS: DULoxetine HCL 60 MG CAPSULE.DR PO SCH (08:28)
[2020-08-21] MEDS: amLODIPine 5 MG TAB PO SCH (08:28)
[2020-08-21] MEDS: CHOLECALCIFEROL 1,000 UNIT TAB PO SCH (08:29)
[2020-08-21] MEDS: ASCORBIC ACID 500 MG TAB PO SCH (08:29)
[2020-08-21] MEDS: NON FORMULARY DRUG (Buprenorphine Hcl/Naloxone Hcl [Suboxone 8 Mg-2 Mg Sl Film] 1 EACH Fil SUBLINGUAL SCH (08:29)
[2020-08-21] MEDS: lisinopriL 20 MG TAB PO SCH (08:29)
[2020-08-21] MEDS: ALBUTEROL HFA INHALER INHALATION SCH ×5 (09:10→19:33)
[2020-08-21] MEDS: SYMBICORT 160-4.5 MCG INHALER INHALATION SCH ×3 (09:10→19:34)
[2020-08-21 11:01] LABS: Ferritin 552.7 ng/mL (22.0-322.0)
--- NOTE | 2020-08-21 12:10 | PN ---
PROGRESS NOTE PULMONARY/CRITICAL CARE PROGRESS NOTE: DATE OF SERVICE: 08/21/2020 Critical care time 32 minutes. This is a 50-year-old gentleman who was admitted on August 15. He was moved to the ICU for hypoxemic respiratory failure on August 19, 2020. He was admitted with a diagnosis of COVID-19 pneumonia. Currently, he is on AIRVO at 60 L/minute and 91% and on and off non-rebreather mask. He is getting saline at KVO. Currently, he is feeling about the same, maybe a bit better. He has received 5 days of Remdesivir, 200 mg on day 1 and 100 mg day 2 through 5. He has also received convalescent plasma x2 doses. Currently, he is resting reasonably comfortably in the ICU. In addition to acute hypoxemic respiratory failure, the patient has a history of essential hypertension, GERD, lifetime nonsmoker, and obesity. Current vital signs are reviewed. Temperature is 98.5 heart rate 67, respiratory rate 23, blood pressure 137/84 mean 101, saturations are 98%. Appears in no acute distress. Mildly tachypneic. HEENT: Examination is grossly unremarkable. AIRVO cannula in place. NECK: Supple, full range of motion. No adenopathy. Neck veins are flat. CARDIOVASCULAR: Examination reveals regular rhythm and rate. Heart rate 67. S1, S2 normal. LUNGS: Reveal coarse bilateral rhonchi. No wheezes or crackles. ABDOMEN: Soft, but obese. EXTREMITIES: Intact. No edema. SKIN: Without rash. NEUROLOGIC: Examination is nonfocal. LABS: Reviewed. White count 18.2, hemoglobin 13.7, hematocrit 40.7, platelet count 424,000. D-dimer 0.82 down from 0.99. Sodium 133, potassium 4.2, chloride 96, CO2 is 33, anion gap is 4. BUN and creatinine were 18 and 0.74, glucose is 116, LDH 870, CK 25. C- reactive protein 48.3. Microbiologic studies are thus far negative. Chest x-ray shows diffuse bilateral infiltrates consistent with COVID-19 pneumonia. MEDICATIONS: Reviewed. He is currently on Tylenol, albuterol inhaler, Xanax, amlodipine, ascorbic acid, Symbicort, Suboxone, vitamin D3, Decadron, Cymbalta, Lovenox, famotidine, ibuprofen, Zestril, melatonin, Narcan, Zofran, and zinc. ASSESSMENT: 1. Acute hypoxemic respiratory failure secondary to COVID-19 pneumonitis with development of acute respiratory distress syndrome. 2. Essential hypertension. 3. Status post Remdesivir x5 days and convalescent plasma x2 doses. 4. History of GERD without esophagitis. 5. Lifetime nonsmoker. 6. Obesity. PLAN: Currently, the patient is on appropriate medications. He remains on AIRVO by the way at 60 L/minute at 91%. He is on and off non-rebreather mask as well. In addition, the patient is on appropriate medications including vitamin C, vitamin D, zinc, Decadron, etc. Again, he has received 5 days of Remdesivir and convalescent plasma x2. I did ask for an interleukin-6 level. Additional recommendations and suggestions are forthcoming. Critical care time 32 minutes. GHADA / HUMPHREY: [id number] /
[2020-08-21] MEDS: ONDANSETRON 4 MG/2 ML VIAL IVP PRN (14:37)
--- NOTE | 2020-08-21 17:00 | P.PN ---
Subjective Acute COVID-19 viral pneumonia Patient is a 50-year-old male with a known history of hypertension, GERD, lower GI bleed, right shoulder injury/pain presents to ER with complaints of generalized weakness and body aches and fever and chills and worsening shortness of breath for the past 4 days. Patient was seen at his PCPs office yesterday and tested for COVID-19 which came out positive. Patient states that he developed shortness of breath this morning and his pulse ox was 88% on room air. Patient presented to ER for evaluation. 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 No complaints of chest pain. No nausea vomiting or abdominal pain or diarrhea. Denied any loss of smell. Patient did have headache this morning. Currently denies any headache. Chest x-ray showed bilateral pneumonia. EKG showed normal sinus rhythm Laboratory data showed lymphocyte count 0.7, WBC 9.3, D-dimer 0.38 Bicarb is 35 Lactic acid 2.6 Magnesium 1.7, ferritin 1161, AST 71 ALT 50 and LDH 1093 and CRP 142 Procalcitonin 0.24 08/16/2020 Patient is currently resting in bed comfortably. No complaints of chest pain or worsening shortness of breath. No acute distress. Awake alert when x3. Pat ient is currently requiring oxygen 5 L via nasal cannula. Patient has been febrile with T-max 101.7 Laboratory reviewed. Chest x-ray showed consistent with bilateral pneumonia. Currently being treated dexamethasone, Lovenox and remdesivir. Patient is also on antibiotics in the form of azithromycin. Pulmonary is on board. 08/17/2020 Patient is awake alert oriented x3. Still requiring oxygen at 5 L via nasal cannula. T-max is 99.2 patient has been afebrile currently. No nausea vomiting or abdominal pain or diarrhea. Chest x-ray showed limited exam demonstrates multifocal airspace disease correlate for pneumonia. Patient is being continued on remdesivir day 3. 08/18/2020 Patient respiratory status appears to be worsening and patient is presently on 10 L of oxygen patient will be closely monitored and the patient continues to be on Decadron and did receive remdesivir and plasma.patient doesn't appear to be doing well at this time. Still short of breath on 10 L of oxygen and saturating atlow 90s and patient is presently on Lovenox 40 mg subcutaneous. D-dimer is 0.74, chest x-ray continues to show significant bilateral infiltrate. 08/19/2020 Patient respiratory status has worsened patient remains on Decadron and the patient was transferred to ICU presently on FiO2 of 50% and flow of around 60 L per minute. Patient is not in respiratory distress. 08/20/2020 Patient remains on airvo , 60 L of oxygenchest x-ray showing diffuse interstitial infiltrates, LDH and other included markers are bit worse compared to yesterday. Finished course of remdesivir, received 1 unit of convalescent plasma. 08/21/2020 Patient can use when 69 as follows although saturations are bit better his LDH is coming down inflammatory markers seem to be getting better. Constitutional: Denied any fatigue denied any fever. Cardio vascular: denied any chest pain, palpitations Gastrointestinal denied any nausea vomiting Pulmonary: continuous to be short of breath Neurologic denied any new focal deficits All inpatient medications were reviewed and appropriate changes in these medications as dictated in the interval history and assessment and plan. Objective - Vital Signs Vital signs: Vital Signs Temp 98.5 F 08/21/20 08:00 Pulse 80 08/21/20 15:00 Resp 17 08/21/20 15:00 BP 142/90 08/21/20 15:00 Pulse Ox 98 08/21/20 15:00 Intake & Output 08/20/20 08/21/20 08/21/20 18:59 06:59 18:59 Intake Total 1644 740 780 Output Total 1999 1150 1400 Balance -356 -410 -620 Weight 132.7 kg 132.7 kg Intake: IV 240 240 180 0.9 80 240 180 Sodium Chloride 0.9% 1, 160 000 ml @ 100 mls/hr IV . Q10H [facility] Rx#:[id number] Oral 1200 600 Blood Product 204 500 Ffp Pher Conval Covid19 204 Acda 3 Unit [id number] Output: Urine 1999 1150 1400 Other: Voiding Method Urinal Urinal Urinal # Voids 0 0 0 - Exam PHYSICAL EXAMINATION: GENERAL: The patient is alert and oriented x3, patient is not in respiratory distress on 60 L of oxygen. Well developed, well nourished. HEENT: Pupils are round and equally reacting to light. EOMI. No scleral icterus. No conjunctival pallor. Normocephalic, atraumatic. No pharyngeal erythema. No thyromegaly. CARDIOVASCULAR: S1 and S2 present. No murmurs, rubs, or gallops. PULMONARY: Chest is clear to auscultation, no wheezing or crackles. ABDOMEN: Soft, nontender, nondistended, normoactive bowel sounds. No palpable organomegaly. MUSCULOSKELETAL: No joint swelling or deformity. EXTREMITIES: No cyanosis, clubbing, or pedal edema. NEUROLOGICAL: Gross neurological examination did not reveal any focal deficits. SKIN: No rashes. Note: Because of COVID 19 isolation, some of the history and physical exam findings are indirect and obtained from nursing staff, and other physician examinations to avoid unnecessary contact with the patient. - Labs CBC & Chem 7: 08/21/20 04:31 08/21/20 04:31 Labs: Abnormal Lab Results - Last 24 Hours (Table) 08/21/20 08/21/20 08/21/20 Range/Units 04:31 04:31 04:31 WBC 18.2 H (3.8-10.6) k/uL Neutrophils # (Manual) 14.00 H (1.3-7.7) k/uL Monocytes # (Manual) 1.82 H (0-1.0) k/uL D-Dimer 0.82 H (<0.60) mg/L FEU Sodium 133 L (137-145) mmol/L Chloride 96 L (98-107) mmol/L Carbon Dioxide 33 H (22-30) mmol/L Glucose 116 H (74-99) mg/dL Ferritin 552.7 H (22.0-322.0) ng/mL Lactate Dehydrogenase 870 H (313-618) U/L Creatine Kinase 25 L (55-170) U/L C-Reactive Protein 48.3 H (<10.0) mg/L Total Protein 6.2 L (6.3-8.2) g/dL Albumin 3.1 L (3.5-5.0) g/dL Microbiology - Last 24 Hours (Table) 08/15/20 11:23 Blood Culture - Final Blood No Growth after 144 hours Assessment and Plan Plan: Acute COVID-19 viral pneumoniacan use oxygen support close monitoring if needed patient will be transferred to ICU [address] with Decadron 6 mg along with Lovenox 40 mg and patient is fourth day of Remdesivirthe . Although patient remains on 6 L bags in his overall clinical condition and laboratory data type to be improving Acute hypoxic respiratory failure secondary to COVID-19 viral infection Sepsis Lactic acidosis resolved GERD History of GI bleed and gastric ulcer Hypertension DVT prophylaxis with Lovenox subcu
[2020-08-22 04:15] LABS: ALT 28 U/L (4-49); AST 28 U/L (17-59); African American GFR (CKD) >90 (>60 ml/min/1.73 sqM); Albumin 3.2 g/dL (3.5-5.0); Alkaline Phosphatase 85 U/L (38-126); Anion Gap 4 mmol/L; Blood Urea Nitrogen 16 mg/dL (9-20); Carbon Dioxide 32 mmol/L (22-30); Chloride 96 mmol/L (98-107); Creatine Kinase 26 U/L (55-170); Glucose 119 mg/dL (74-99); LDH 967 U/L (313-618); Non-African American GFR(CKD) >90 (>60 ml/min/1.73 sqM); Potassium 5.4 mmol/L (3.5-5.1); Sodium 132 mmol/L (137-145); Total Bilirubin 0.6 mg/dL (0.2-1.3); Total Protein 6.5 g/dL (6.3-8.2)
[2020-08-22] MEDS: ACETAMINOPHEN TAB 325 MG TAB PO PRN (04:22)
[2020-08-22 04:23] LABS: Basophils # (A) 0.2 k/uL (0-0.2); Basophils % (A) 1 %; Eosinophils # (A) 0.1 k/uL (0-0.7); Eosinophils % (A) 1 %; HCT 43.3 % (39.0-53.0); HGB 14.1 gm/dL (13.0-17.5); Lymphocytes # (A) 1.9 k/uL (1.0-4.8); Lymphocytes % (A) 8 %; MCH 30.6 pg (25.0-35.0); MCHC 32.6 g/dL (31.0-37.0); MCV 93.9 fL (80.0-100.0); Mean Platelet Volume 6.9; Monocytes # (A) 1.3 k/uL (0-1.0); Monocytes % (A) 6 %; Neutrophils # (A) 19.2 k/uL (1.3-7.7); Neutrophils % (A) 84 %; Platelet Count 493 k/uL (150-450); RBC 4.61 m/uL (4.30-5.90); RDW 13.4 % (11.5-15.5); WBC 23.1 k/uL (3.8-10.6)
[2020-08-22] MEDS: SYMBICORT 160-4.5 MCG INHALER INHALATION SCH ×2 (07:33→21:33)
[2020-08-22] MEDS: ALBUTEROL HFA INHALER INHALATION SCH ×4 (07:33→21:33)
--- NOTE | 2020-08-22 08:37 | XR ---
EXAMINATION TYPE: XR chest 1V portable DATE OF EXAM: 08/22/2020 COMPARISON: 08/21/2020 HISTORY: Cough TECHNIQUE: Single frontal view of the chest is obtained. FINDINGS: Diffuse bilateral airspace disease stable. Pleural thickening or tiny pleural effusions. H eart size stable. No pneumothorax. IMPRESSION: Diffuse airspace disease stable. Correlate for pneumonia.
[2020-08-22] MEDS: ONDANSETRON 4 MG/2 ML VIAL IVP PRN ×2 (08:42→20:37)
[2020-08-22] MEDS: ENOXAPARIN 60 MG/0.6 ML SYRINGE SQ SCH ×2 (08:43→20:12)
[2020-08-22] MEDS: lisinopriL 20 MG TAB PO SCH (08:43)
[2020-08-22] MEDS: amLODIPine 5 MG TAB PO SCH (08:43)
[2020-08-22] MEDS: ZINC SULFATE 220 MG CAP PO SCH (08:43)
[2020-08-22] MEDS: CHOLECALCIFEROL 1,000 UNIT TAB PO SCH (08:43)
[2020-08-22] MEDS: ASCORBIC ACID 500 MG TAB PO SCH (08:43)
[2020-08-22] MEDS: DULoxetine HCL 60 MG CAPSULE.DR PO SCH (08:43)
[2020-08-22] MEDS: dexAMETHasone 2 MG TAB PO SCH (08:43)
[2020-08-22] MEDS: FAMOTIDINE 20 MG TAB PO SCH ×2 (08:43→20:12)
[2020-08-22] MEDS: NON FORMULARY DRUG (Buprenorphine Hcl/Naloxone Hcl [Suboxone 8 Mg-2 Mg Sl Film] 1 EACH Fil SUBLINGUAL SCH (08:44)
--- NOTE | 2020-08-22 13:59 | P.PN ---
Subjective Acute COVID-19 viral pneumonia Patient is a 50-year-old male with a known history of hypertension, GERD, lower GI bleed, right shoulder injury/pain presents to ER with complaints of generalized weakness and body aches and fever and chills and worsening shortness of breath for the past 4 days. Patient was seen at his PCPs office yesterday and tested for COVID-19 which came out positive. Patient states that he developed shortness of breath this morning and his pulse ox was 88% on room air. Patient presented to ER for evaluation. 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 No complaints of chest pain. No nausea vomiting or abdominal pain or diarrhea. Denied any loss of smell. Patient did have headache this morning. Currently denies any headache. Chest x-ray showed bilateral pneumonia. EKG showed normal sinus rhythm Laboratory data showed lymphocyte count 0.7, WBC 9.3, D-dimer 0.38 Bicarb is 35 Lactic acid 2.6 Magnesium 1.7, ferritin 1161, AST 71 ALT 50 and LDH 1093 and CRP 142 Procalcitonin 0.24 08/16/2020 Patient is currently resting in bed comfortably. No complaints of chest pain or worsening shortness of breath. No acute distress. Awake alert when x3. Pat ient is currently requiring oxygen 5 L via nasal cannula. Patient has been febrile with T-max 101.7 Laboratory reviewed. Chest x-ray showed consistent with bilateral pneumonia. Currently being treated dexamethasone, Lovenox and remdesivir. Patient is also on antibiotics in the form of azithromycin. Pulmonary is on board. 08/17/2020 Patient is awake alert oriented x3. Still requiring oxygen at 5 L via nasal cannula. T-max is 99.2 patient has been afebrile currently. No nausea vomiting or abdominal pain or diarrhea. Chest x-ray showed limited exam demonstrates multifocal airspace disease correlate for pneumonia. Patient is being continued on remdesivir day 3. 08/18/2020 Patient respiratory status appears to be worsening and patient is presently on 10 L of oxygen patient will be closely monitored and the patient continues to be on Decadron and did receive remdesivir and plasma.patient doesn't appear to be doing well at this time. Still short of breath on 10 L of oxygen and saturating atlow 90s and patient is presently on Lovenox 40 mg subcutaneous. D-dimer is 0.74, chest x-ray continues to show significant bilateral infiltrate. 08/19/2020 Patient respiratory status has worsened patient remains on Decadron and the patient was transferred to ICU presently on FiO2 of 50% and flow of around 60 L per minute. Patient is not in respiratory distress. 08/20/2020 Patient remains on airvo , 60 L of oxygenchest x-ray showing diffuse interstitial infiltrates, LDH and other included markers are bit worse compared to yesterday. Finished course of remdesivir, received 1 unit of convalescent plasma. 08/21/2020 Patient can use when 69 as follows although saturations are bit better his LDH is coming down inflammatory markers seem to be getting better. 08/22/2020 Patient chest x-ray episode significant infiltrate patient remains on 6 L frogs and along with as needed Ventimask. Constitutional: Denied any fatigue denied any fever. Cardio vascular: denied any chest pain, palpitations Gastrointestinal denied any nausea vomiting Pulmonary: continuous to be short of breath Neurologic denied any new focal deficits All inpatient medications were reviewed and appropriate changes in these medications as dictated in the interval history and assessment and plan. Objective - Vital Signs Vital signs: Vital Signs Temp 97.8 F 08/22/20 12:00 Pulse 83 08/22/20 13:00 Resp 20 08/22/20 13:00 BP 132/67 08/22/20 13:00 Pulse Ox 93 L 08/22/20 13:00 Intake & Output 08/21/20 08/22/20 08/22/20 18:59 06:59 18:59 Intake Total 840 240 340 Output Total 1700 1050 550 Balance -860 -810 -210 Weight 132.7 kg 133.1 kg Intake: IV 240 240 140 0.9 240 240 140 Oral 600 200 Output: Urine 1700 1050 550 Other: Voiding Method Urinal Urinal Urinal # Voids 0 - Exam PHYSICAL EXAMINATION: GENERAL: The patient is alert and oriented x3, patient is not in respiratory distress on 60 L of oxygen. Well developed, well nourished. HEENT: Pupils are round and equally reacting to light. EOMI. No scleral icterus. No conjunctival pallor. Normocephalic, atraumatic. No pharyngeal erythema. No thyromegaly. CARDIOVASCULAR: S1 and S2 present. No murmurs, rubs, or gallops. PULMONARY: Chest is clear to auscultation, no wheezing or crackles. ABDOMEN: Soft, nontender, nondistended, normoactive bowel sounds. No palpable organomegaly. MUSCULOSKELETAL: No joint swelling or deformity. EXTREMITIES: No cyanosis, clubbing, or pedal edema. NEUROLOGICAL: Gross neurological examination did not reveal any focal deficits. SKIN: No rashes. Note: Because of COVID 19 isolation, some of the history and physical exam findings are indirect and obtained from nursing staff, and other physician examinations to avoid unnecessary contact with the patient. - Labs CBC & Chem 7: 08/22/20 03:15 08/22/20 03:15 Labs: Abnormal Lab Results - Last 24 Hours (Table) 08/22/20 08/22/20 Range/Units 03:15 03:15 WBC 23.1 H (3.8-10.6) k/uL Plt Count 493 H (150-450) k/uL Neutrophils # 19.2 H (1.3-7.7) k/uL Monocytes # 1.3 H (0-1.0) k/uL Sodium 132 L (137-145) mmol/L Potassium 5.4 H (3.5-5.1) mmol/L Chloride 96 L (98-107) mmol/L Carbon Dioxide 32 H (22-30) mmol/L Glucose 119 H (74-99) mg/dL Lactate Dehydrogenase 967 H (313-618) U/L Creatine Kinase 26 L (55-170) U/L Albumin 3.2 L (3.5-5.0) g/dL Microbiology - Last 24 Hours (Table) 08/15/20 11:23 Blood Culture - Final Blood No Growth after 144 hours Assessment and Plan Plan: Acute COVID-19 viral pneumoniacan use oxygen support close monitoring if needed patient will be transferred to ICU [address] with Decadron 6 mg along with Lovenox 40 mg and patient is fourth day of Remdesivir . Although patient remains on 60 L of oxygen ration doesn't have significant improvement in his respiratory status. Acute hypoxic respiratory failure secondary to COVID-19 viral infection Sepsis Lactic acidosis resolved GERD History of GI bleed and gastric ulcer Hypertension DVT prophylaxis with Lovenox subcu
--- NOTE | 2020-08-22 14:49 | PN ---
PROGRESS NOTE PULMONARY/CRITICAL CARE NOTE DATE OF SERVICE: August 22, 2020. Critical care time 32 minutes. 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 He was moved to the ICU for hypoxemic respiratory failure on August 19, 2020. He was admitted with a diagnosis of COVID 19 pneumonia/pneumonitis. Currently, he is on AIRVO at 60 L/minute and 90% FiO2. He has been using a non-rebreather mask, in addition, on and off. He is getting saline at 20 mL an hour. Clinically, he is about the same or only slightly better. Apparently, according to the nurse taking care of him, the patient has been using the non-rebreather much less frequently. In addition to the above, he has a history of essential hypertension, GERD, lifetime nonsmoker, and obesity. PHYSICAL EXAMINATION: VITAL SIGNS: Current vital signs are reviewed; his temperature is 97.7 heart rate 76, respiratory rate 24, blood pressure 121/76, mean 91 saturations are 91%. Appears in no acute distress. Mildly tachypneic and dyspneic. Mild conversational dyspnea. HEENT: Examination is grossly unremarkable. AIRVO cannula are noted. NECK: Supple full range of motion. No adenopathy. Neck veins are flat. CARDIOVASCULAR: Examination reveals regular rhythm rate. Heart rate 75. S1, S2 normal. No murmur. LUNGS: Reveal coarse bilateral rhonchi. No crackles or wheezes. Breath sounds equal bilaterally but diminished throughout. ABDOMEN: Soft, but obese. Bowel sounds are heard. EXTREMITIES are intact. No cyanosis, clubbing, or edema. SKIN: Without rash. NEUROLOGIC: Examination is stable. LABS: Reviewed. White count 23.1, hemoglobin 14.1, hematocrit 43.3, platelet count 493,000. Sodium 132, potassium 5.4, chloride 96, CO2 32, anion gap 4, BUN and creatinine were 16 and 0.72. The patient's LDH is 967. Microbiologic studies are thus far negative. Chest x-ray continues to show diffuse bilateral infiltrates. They are relatively stable. MEDICATIONS: Reviewed. The patient is on Tylenol, albuterol inhaler, Xanax, amlodipine, vitamin C, Symbicort, Suboxone, vitamin D3, Decadron, Cymbalta, Lovenox, famotidine, ibuprofen, lisinopril, melatonin, Narcan, Zofran, and zinc. The patient has received his 5 days of Remdesivir and 2 doses of convalescent plasma. ASSESSMENT: 1. Acute hypoxemic respiratory failure secondary to COVID-19 pneumonia/pneumonitis with acute respiratory distress syndrome. 2. Essential hypertension. 3. Status post Remdesivir x5 days and convalescent plasma x2 doses. 4. History of gastroesophageal reflux disease without esophagitis. 5. Lifetime nonsmoker. 6. Obesity. Currently, the patient is doing about the same. The patient remains on AIRVO at 60 L/minute, 90% FiO2. The patient has been using a non-rebreather less and less. The patient is on appropriate medications. We will continue to follow. Prognosis is guarded. We did ask for an interleukin-6 level. Additional recommendations and suggestions are forthcoming. Critical care time 32 minutes. GHADA / HUMPHREY: [id number] /
[2020-08-22] MEDS: MELATONIN 5 MG TABLET PO SCH (20:12)
[2020-08-22] MEDS: ALPRAZolam 0.25 MG TAB PO PRN (20:37)
[2020-08-22] MEDS ORDERED: TOCILIZUMAB 400 MG in SODIUM CHLORIDE 0.9% 80 ML IV SCH (22:45)
[2020-08-23 04:42] LABS: African American GFR (CKD) >90 (>60 ml/min/1.73 sqM); Anion Gap 3 mmol/L; Blood Urea Nitrogen 15 mg/dL (9-20); C Reactive Protein 84.6 mg/L (<10.0); Calcium 9.3 mg/dL (8.4-10.2); Carbon Dioxide 35 mmol/L (22-30); Chloride 94 mmol/L (98-107); Glucose 115 mg/dL (74-99); LDH 868 U/L (313-618); Non-African American GFR(CKD) >90 (>60 ml/min/1.73 sqM); Potassium 5.8 mmol/L (3.5-5.1); Sodium 132 mmol/L (137-145)
[2020-08-23 04:53] LABS: D-Dimer 1.1 mg/L FEU (<0.60); HCT 42.3 % (39.0-53.0); MCH 30.7 pg (25.0-35.0); MCV 92.9 fL (80.0-100.0); Mean Platelet Volume 7.2; Platelet Count 518 k/uL (150-450); RBC 4.56 m/uL (4.30-5.90); RDW 13.3 % (11.5-15.5); WBC 23.2 k/uL (3.8-10.6)
[2020-08-23 06:10] LABS: Anisocytosis (M) Present; Band Neutrophils % 3 %; Lymphocytes # (M) 1.86 k/uL (1.0-4.8); Monocytes # (M) 2.09 k/uL (0-1.0); Neutrophils % (M) 80 %; Nucleated Red Blood Cells 0 /100 WBC (0-0); Polychromasia Present; Total Cells Counted 100
[2020-08-23 06:11] LABS: Poikilocytosis (M) Present
[2020-08-23] MEDS: lisinopriL 20 MG TAB PO SCH (08:31)
[2020-08-23] MEDS: ZINC SULFATE 220 MG CAP PO SCH (08:31)
[2020-08-23] MEDS: amLODIPine 5 MG TAB PO SCH (08:31)
[2020-08-23] MEDS: FAMOTIDINE 20 MG TAB PO SCH ×2 (08:31→19:50)
[2020-08-23] MEDS: ASCORBIC ACID 500 MG TAB PO SCH (08:32)
[2020-08-23] MEDS: ONDANSETRON 4 MG/2 ML VIAL IVP PRN ×2 (08:32→20:07)
[2020-08-23] MEDS: CHOLECALCIFEROL 1,000 UNIT TAB PO SCH (08:32)
[2020-08-23] MEDS: DULoxetine HCL 60 MG CAPSULE.DR PO SCH (08:32)
[2020-08-23] MEDS: dexAMETHasone 2 MG TAB PO SCH (08:32)
[2020-08-23] MEDS: ACETAMINOPHEN TAB 325 MG TAB PO PRN (08:32)
[2020-08-23] MEDS: ENOXAPARIN 60 MG/0.6 ML SYRINGE SQ SCH ×2 (08:33→19:51)
--- NOTE | 2020-08-23 08:49 | XR ---
EXAMINATION TYPE: XR chest 1V portable DATE OF EXAM: 08/23/2020 COMPARISON: Prior chest x-ray 08/22/2020 HISTORY: Abnormal chest x-ray, pneumonia TECHNIQUE: Single frontal view of the chest is obtained. FINDINGS: Bilateral airspace disease persists. No evident pneumothorax or pleural effusion. Lung derik es are low. Heart is obscured but thought to be stable and within normal limits. IMPRESSION: Correlate for pneumonia
[2020-08-23 09:30] LABS: Ferritin 706.2 ng/mL (22.0-322.0)
[2020-08-23] MEDS: SYMBICORT 160-4.5 MCG INHALER INHALATION SCH ×2 (09:38→20:11)
[2020-08-23] MEDS: ALBUTEROL HFA INHALER INHALATION SCH ×4 (09:38→20:11)
[2020-08-23] MEDS: NON FORMULARY DRUG (Buprenorphine Hcl/Naloxone Hcl [Suboxone 8 Mg-2 Mg Sl Film] 1 EACH Fil SUBLINGUAL SCH (09:47)
--- NOTE | 2020-08-23 11:05 | US ---
EXAMINATION TYPE: US venous doppler duplex LE RT DATE OF EXAM: 08/23/2020 10:30 AM COMPARISON: NONE CLINICAL HISTORY: Rt calf pain R/O DVT. COVID+ SIDE PERFORMED: Right TECHNIQUE: The lower extremity deep venous system is examined utilizing real time linear array sonog gui with graded compression, doppler sonography and color-flow sonography. VESSELS IMAGED: Common Femoral Vein Deep Femoral Vein Greater Saphenous Vein * Femoral Vein Popliteal Vein Small Saphenous Vein * Proximal Calf Veins (* superficial vessels) The left common femoral, superficial femoral, popliteal veins all compress normally and show color fl ow, there are no abnormal luminal echoes. Venous waveforms are normal. Rouleau effect is noted within the central femoral vein Right Leg: Negative for DVT IMPRESSION: No evident deep venous thrombosis at or above the right knee.
--- NOTE | 2020-08-23 11:35 | PN ---
PROGRESS NOTE PULMONARY/CRITICAL CARE PROGRESS NOTE: DATE OF SERVICE: 08/23/2020 Critical care time 32 minutes. 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 He has been here since. The patient was diagnosis as having COVID-19 pneumonia/pneumonitis. Currently, he is on AIRVO at 50 L/minute and 90% FiO2. He also uses a non-rebreather mask in addition to AIRVO from time to time. Clinically, he is not any better. His right calf is tender. Will do a Doppler there. The potassium is 5.8. That will be repeated. In addition, I did order interleukin-6 level. It was elevated. I am going to see if we can get the patient tocilizumab. He has a history of obesity, hypertension, GERD, and life time nonsmoker. Current vital signs are reviewed. Temperature 98.1, heart rate 80, respiratory rate 22, blood pressure 131/70 mean 90 and saturations are right around 93% or so. Appears in no acute distress, but does have conversational dyspnea. No audible wheezing or use of accessory muscles. HEENT: Examination is grossly unremarkable. NECK: Supple, full range of motion. No adenopathy. Neck veins are flat. CARDIOVASCULAR: Examination reveals regular rhythm and rate. Heart rate 93 beats per minute. S1, S2 normal. Heart sounds are distant. No murmur. LUNGS: Reveal diffuse coarse bilateral rhonchi. No wheezes or crackles. Abdomen is soft. Bowel sounds are heard. EXTREMITIES: Intact. No edema. SKIN: Without rash. NEUROLOGIC: Examination is nonfocal. CURRENT LABS: Reviewed. White count 23.2, hematocrit 42.3, and platelet count 518,000. Fibrinogen 587. D-dimer 1.10. Sodium 132, potassium 5.8, chloride 94, CO2 is 35, glucose is 115. Ferritin 706, LDH 878. C-reactive protein 84.6. Interleukin-6 level 62.7. Microbiology is negative. Chest x-ray shows diffuse bilateral infiltrates. X-ray has not changed all that much. CURRENT MEDICATIONS: Reviewed. The patient is currently on Tylenol, albuterol, Xanax, amlodipine, ascorbic acid, Symbicort, Suboxone, vitamin D3, Decadron, Cymbalta, Lovenox, famotidine, Motrin, Zestril, melatonin, Narcan, Zofran, and zinc. ASSESSMENT: 1. Acute hypoxemic respiratory failure secondary to COVID-19 pneumonia/pneumonitis, with acute respiratory distress syndrome. 2. Essential hypertension. 3. Status post Remdesivir for 5 days, then convalescent plasma x2 doses. 4. History of gastroesophageal reflux disease without esophagitis. 5. Life time nonsmoker. 6. Obesity. 7. Elevated interleukin-6 levels, with possible cytokine storm. PLAN: Currently, the patient is about the same. I am going to see if we can get him some tocilizumab for his elevated IL6. Will continue him on all his other medications. He remains essentially on the same FiO2 as before. He is on and off the non-rebreather mask. Prognosis is guarded. Will continue to follow. No additional recommendations are made at this time. MMALVERTOL / MITCHELLN: [id number] /
--- NOTE | 2020-08-23 11:49 | P.PN ---
Subjective Acute COVID-19 viral pneumonia Patient is a 50-year-old male with a known history of hypertension, GERD, lower GI bleed, right shoulder injury/pain presents to ER with complaints of generalized weakness and body aches and fever and chills and worsening shortness of breath for the past 4 days. Patient was seen at his PCPs office yesterday and tested for COVID-19 which came out positive. Patient states that he developed shortness of breath this morning and his pulse ox was 88% on room air. Patient presented to ER for evaluation. 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 No complaints of chest pain. No nausea vomiting or abdominal pain or diarrhea. Denied any loss of smell. Patient did have headache this morning. Currently denies any headache. Chest x-ray showed bilateral pneumonia. EKG showed normal sinus rhythm Laboratory data showed lymphocyte count 0.7, WBC 9.3, D-dimer 0.38 Bicarb is 35 Lactic acid 2.6 Magnesium 1.7, ferritin 1161, AST 71 ALT 50 and LDH 1093 and CRP 142 Procalcitonin 0.24 08/16/2020 Patient is currently resting in bed comfortably. No complaints of chest pain or worsening shortness of breath. No acute distress. Awake alert when x3. Pat ient is currently requiring oxygen 5 L via nasal cannula. Patient has been febrile with T-max 101.7 Laboratory reviewed. Chest x-ray showed consistent with bilateral pneumonia. Currently being treated dexamethasone, Lovenox and remdesivir. Patient is also on antibiotics in the form of azithromycin. Pulmonary is on board. 08/17/2020 Patient is awake alert oriented x3. Still requiring oxygen at 5 L via nasal cannula. T-max is 99.2 patient has been afebrile currently. No nausea vomiting or abdominal pain or diarrhea. Chest x-ray showed limited exam demonstrates multifocal airspace disease correlate for pneumonia. Patient is being continued on remdesivir day 3. 08/18/2020 Patient respiratory status appears to be worsening and patient is presently on 10 L of oxygen patient will be closely monitored and the patient continues to be on Decadron and did receive remdesivir and plasma.patient doesn't appear to be doing well at this time. Still short of breath on 10 L of oxygen and saturating atlow 90s and patient is presently on Lovenox 40 mg subcutaneous. D-dimer is 0.74, chest x-ray continues to show significant bilateral infiltrate. 08/19/2020 Patient respiratory status has worsened patient remains on Decadron and the patient was transferred to ICU presently on FiO2 of 50% and flow of around 60 L per minute. Patient is not in respiratory distress. 08/20/2020 Patient remains on airvo , 60 L of oxygenchest x-ray showing diffuse interstitial infiltrates, LDH and other included markers are bit worse compared to yesterday. Finished course of remdesivir, received 1 unit of convalescent plasma. 08/21/2020 Patient can use when 69 as follows although saturations are bit better his LDH is coming down inflammatory markers seem to be getting better. 08/22/2020 Patient chest x-ray episode significant infiltrate patient remains on 6 L frogs and along with as needed Ventimask. 08/23/2020 Patient clinical condition did not change much. Patient is being started on Toclizumab to my monoclonal antibody for IL-6 receptor. Constitutional: Denied any fatigue denied any fever. Cardio vascular: denied any chest pain, palpitations Gastrointestinal denied any nausea vomiting Pulmonary: continuous to be short of breath Neurologic denied any new focal deficits All inpatient medications were reviewed and appropriate changes in these medications as dictated in the interval history and assessment and plan. Objective - Vital Signs Vital signs: Vital Signs Temp 98.1 F 08/23/20 08:00 Pulse 84 08/23/20 11:00 Resp 22 08/23/20 11:00 BP 135/86 08/23/20 11:00 Pulse Ox 92 L 08/23/20 11:00 Intake & Output 08/22/20 08/23/20 08/23/20 18:59 06:59 18:59 Intake Total 640 240 200 Output Total 1400 1750 550 Balance -760 -1510 -350 Weight 133.1 kg Intake: IV 240 240 100 0.9 240 240 100 Oral 400 100 Output: Urine 1400 1750 550 Other: Voiding Method Urinal Urinal Urinal - Exam PHYSICAL EXAMINATION: GENERAL: The patient is alert and oriented x3, patient is not in respiratory distress on 60 L of oxygen. Well developed, well nourished. HEENT: Pupils are round and equally reacting to light. EOMI. No scleral icterus. No conjunctival pallor. Normocephalic, atraumatic. No pharyngeal erythema. No thyromegaly. CARDIOVASCULAR: S1 and S2 present. No murmurs, rubs, or gallops. PULMONARY: Chest is clear to auscultation, no wheezing or crackles. ABDOMEN: Soft, nontender, nondistended, normoactive bowel sounds. No palpable organomegaly. MUSCULOSKELETAL: No joint swelling or deformity. EXTREMITIES: No cyanosis, clubbing, or pedal edema. NEUROLOGICAL: Gross neurological examination did not reveal any focal deficits. SKIN: No rashes. Note: Because of COVID 19 isolation, some of the history and physical exam findings are indirect and obtained from nursing staff, and other physician examinations to avoid unnecessary contact with the patient. - Labs CBC & Chem 7: 08/23/20 03:30 08/23/20 10:40 Labs: Abnormal Lab Results - Last 24 Hours (Table) 08/21/20 08/23/20 08/23/20 Range/Units 10:35 03:30 03:30 WBC 23.2 H (3.8-10.6) k/uL Plt Count 518 H (150-450) k/uL Neutrophils # (Manual) 19.20 H (1.3-7.7) k/uL Monocytes # (Manual) 2.09 H (0-1.0) k/uL Fibrinogen 587 H (200-500) mg/dL D-Dimer 1.10 H (<0.60) mg/L FEU Sodium (137-145) mmol/L Potassium (3.5-5.1) mmol/L Chloride (98-107) mmol/L Carbon Dioxide (22-30) mmol/L Glucose (74-99) mg/dL Ferritin (22.0-322.0) ng/mL Lactate Dehydrogenase (313-618) U/L C-Reactive Protein (<10.0) mg/L Interleukin 6 62.7 H (<6.4) pg/mL 08/23/20 Range/Units 03:30 WBC (3.8-10.6) k/uL Plt Count (150-450) k/uL Neutrophils # (Manual) (1.3-7.7) k/uL Monocytes # (Manual) (0-1.0) k/uL Fibrinogen (200-500) mg/dL D-Dimer (<0.60) mg/L FEU Sodium 132 L (137-145) mmol/L Potassium 5.8 H (3.5-5.1) mmol/L Chloride 94 L (98-107) mmol/L Carbon Dioxide 35 H (22-30) mmol/L Glucose 115 H (74-99) mg/dL Ferritin 706.2 H (22.0-322.0) ng/mL Lactate Dehydrogenase 868 H (313-618) U/L C-Reactive Protein 84.6 H (<10.0) mg/L Interleukin 6 (<6.4) pg/mL Assessment and Plan Plan: Acute COVID-19 viral pneumoniacan use oxygen support close monitoring if needed patient will be transferred to ICU [address] with Decadron 6 mg along with Lovenox 40 mg and patient is fourth day of Remdesivir . Although patient remains on 60 L of oxygen ration doesn't have significant improvement in his respiratory status.Being started on Toclizumab Acute hypoxic respiratory failure secondary to COVID-19 viral infection Sepsis Lactic acidosis resolved GERD History of GI bleed and gastric ulcer Hypertension DVT prophylaxis with Lovenox subcu
[2020-08-23] MEDS: TOCILIZUMAB 400 MG in SODIUM CHLORIDE 0.9% 80 ML IV SCH ×2 (12:19→23:53)
[2020-08-23] MEDS: MELATONIN 5 MG TABLET PO SCH (19:50)
[2020-08-24 04:27] LABS: Basophils # (A) 0.1 k/uL (0-0.2); Basophils % (A) 0 %; Eosinophils # (A) 0.2 k/uL (0-0.7); Eosinophils % (A) 1 %; HCT 40.3 % (39.0-53.0); HGB 13.1 gm/dL (13.0-17.5); Lymphocytes # (A) 1.6 k/uL (1.0-4.8); Lymphocytes % (A) 8 %; MCH 30.3 pg (25.0-35.0); MCHC 32.6 g/dL (31.0-37.0); MCV 92.9 fL (80.0-100.0); Mean Platelet Volume 6.5; Monocytes # (A) 1.2 k/uL (0-1.0); Monocytes % (A) 6 %; Neutrophils # (A) 17.9 k/uL (1.3-7.7); Neutrophils % (A) 85 %; Platelet Count 558 k/uL (150-450); RBC 4.33 m/uL (4.30-5.90); RDW 13.3 % (11.5-15.5); WBC 21.2 k/uL (3.8-10.6)
[2020-08-24 04:53] LABS: African American GFR (CKD) >90 (>60 ml/min/1.73 sqM); Anion Gap 6 mmol/L; Blood Urea Nitrogen 17 mg/dL (9-20); Carbon Dioxide 30 mmol/L (22-30); Chloride 95 mmol/L (98-107); Glucose 150 mg/dL (74-99); Non-African American GFR(CKD) >90 (>60 ml/min/1.73 sqM); Potassium 4.7 mmol/L (3.5-5.1); Sodium 131 mmol/L (137-145)
[2020-08-24 05:12] LABS: C Reactive Protein 121.4 mg/L (<10.0)
[2020-08-24] MEDS: ALBUTEROL HFA INHALER INHALATION SCH ×4 (07:47→19:38)
[2020-08-24] MEDS: SYMBICORT 160-4.5 MCG INHALER INHALATION SCH ×2 (07:48→19:38)
--- NOTE | 2020-08-24 09:02 | XR ---
EXAMINATION TYPE: XR chest 1V portable DATE OF EXAM: 08/24/2020 COMPARISON: 08/23/2010 HISTORY: Cough TECHNIQUE: Single frontal view of the chest is obtained. FINDINGS: Diffuse bilateral airspace disease stable. Pleural thickening or tiny pleural effusions. H eart size stable. No pneumothorax. IMPRESSION: Stable x-ray correlate for multifocal diffuse pneumonia.
[2020-08-24] MEDS: ASCORBIC ACID 500 MG TAB PO SCH (09:13)
[2020-08-24] MEDS: DULoxetine HCL 60 MG CAPSULE.DR PO SCH (09:13)
[2020-08-24] MEDS: FAMOTIDINE 20 MG TAB PO SCH ×2 (09:13→20:21)
[2020-08-24] MEDS: ENOXAPARIN 60 MG/0.6 ML SYRINGE SQ SCH ×2 (09:13→20:21)
[2020-08-24] MEDS: CHOLECALCIFEROL 1,000 UNIT TAB PO SCH (09:13)
[2020-08-24] MEDS: ZINC SULFATE 220 MG CAP PO SCH (09:13)
[2020-08-24] MEDS: lisinopriL 20 MG TAB PO SCH (09:14)
[2020-08-24] MEDS: dexAMETHasone 2 MG TAB PO SCH (09:14)
[2020-08-24] MEDS: amLODIPine 5 MG TAB PO SCH (09:14)
[2020-08-24] MEDS: ENOXAPARIN 40 MG/0.4 ML SYRINGE SQ SCH (10:08)
--- NOTE | 2020-08-24 10:11 | PN ---
PROGRESS NOTE PULMONARY/CRITICAL CARE PROGRESS NOTE: DATE OF SERVICE: 08/24/2020 Critical care time 32 minutes. 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 He was admitted with a diagnosis of COVID pneumonia. He was moved to the intensive care unit for hypoxemic respiratory failure on August 19, 2020. He has been here since that time. The patient has been on AIRVO. Currently, he is on 50 L/minute with a 94% FiO2. In addition, he has been on and of the non-rebreather mask. His interleukin-6 level was elevated. I believe it was 62.6. For that reason, we chose to give him tocilizumab. He got 400 mg x2. The data on tocilizumab is sketchy at best, but I just felt that given the fact that he is relatively young and has only been here for a relatively short period of time, and has not really shown much improvement, we would go ahead and give it to him. He states today when I talked to him that he felt much better after receiving it. In fact, he feels like his breathing is much improved and he has not had to use the non-rebreather mask only the AIRVO. He does have a history of obesity, hypertension, and acid reflux disease. He is a lifelong nonsmoker. Current vital signs are reviewed. His temperature is 98.3, heart rate 68, respiratory rate 19, blood pressure 117/73, saturations are 93%. Appears mildly tachypneic. No conversational dyspnea. No audible wheezing. He looks a bit more comfortable today than when I was in the room a couple days ago. HEENT: Examination is grossly unremarkable. AIRVO cannula noted. NECK: Supple, full range of motion. No adenopathy. Neck veins are flat. CARDIOVASCULAR: Examination reveals a heart rate of mid 60s. S1, S2 normal. LUNGS: A few scattered rhonchi. No wheezes or crackles. ABDOMEN: Obese, bowel sounds are heard. EXTREMITIES: Intact. No edema. SKIN: Without rash. NEUROLOGIC: Examination is nonfocal. LABS: Reviewed. White count 21.2, hemoglobin 13.1, hematocrit 40.3, platelet count 558,000. D-dimer is 1.36 when last checked. Sodium 131, potassium 4.7, chloride 95, CO2 30, anion gap is 6. BUN and creatinine were 17 and 0.71. C-reactive protein 121.4. Interleukin-6 level was 62.7. Microbiology is negative. Chest x-ray shows stable diffuse bilateral infiltrates. MEDICATIONS: Reviewed. He is on Tylenol, albuterol inhaler, Xanax, amlodipine, vitamin C, Symbicort, Suboxone, vitamin D3, Decadron, Cymbalta, Lovenox, famotidine, ibuprofen, lisinopril, melatonin, Narcan, Zofran, and zinc. ASSESSMENT: 1. Acute hypoxemic respiratory failure secondary to COVID-19 pneumonia/pneumonitis, with acute respiratory distress syndrome, clinically better. 2. Essential hypertension. 3. Status post Remdesivir for 5 days as well as convalescent plasma for 2 doses. 4. Status post tocilizumab 400 mg x2 for cytokine storm syndrome. 5. History of gastroesophageal reflux disease without esophagitis. 6. Lifetime nonsmoker. 7. Obesity. PLAN: Currently, clinically the patient feels better. His oxygenation is a bit more stable. He has not required the non-rebreather mask. I do not know if it is just a natural history of disease improving and/or related to tocilizumab infusion. The patient will be seen on a daily basis. Will continue to follow. Doppler of the right calf was negative for DVT. He remains on AIRVO. He is not receiving any IV fluids. Prognosis is guarded. MMODL / IJN: [id number] /
[2020-08-24 10:54] LABS: Ferritin 632.7 ng/mL (22.0-322.0)
--- NOTE | 2020-08-24 11:03 | P.PN ---
Subjective Acute COVID-19 viral pneumonia Patient is a 50-year-old male with a known history of hypertension, GERD, lower GI bleed, right shoulder injury/pain presents to ER with complaints of generalized weakness and body aches and fever and chills and worsening shortness of breath for the past 4 days. Patient was seen at his PCPs office yesterday and tested for COVID-19 which came out positive. Patient states that he developed shortness of breath this morning and his pulse ox was 88% on room air. Patient presented to ER for evaluation. 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 No complaints of chest pain. No nausea vomiting or abdominal pain or diarrhea. Denied any loss of smell. Patient did have headache this morning. Currently denies any headache. Chest x-ray showed bilateral pneumonia. EKG showed normal sinus rhythm Laboratory data showed lymphocyte count 0.7, WBC 9.3, D-dimer 0.38 Bicarb is 35 Lactic acid 2.6 Magnesium 1.7, ferritin 1161, AST 71 ALT 50 and LDH 1093 and CRP 142 Procalcitonin 0.24 08/16/2020 Patient is currently resting in bed comfortably. No complaints of chest pain or worsening shortness of breath. No acute distress. Awake alert when x3. Pat ient is currently requiring oxygen 5 L via nasal cannula. Patient has been febrile with T-max 101.7 Laboratory reviewed. Chest x-ray showed consistent with bilateral pneumonia. Currently being treated dexamethasone, Lovenox and remdesivir. Patient is also on antibiotics in the form of azithromycin. Pulmonary is on board. 08/17/2020 Patient is awake alert oriented x3. Still requiring oxygen at 5 L via nasal cannula. T-max is 99.2 patient has been afebrile currently. No nausea vomiting or abdominal pain or diarrhea. Chest x-ray showed limited exam demonstrates multifocal airspace disease correlate for pneumonia. Patient is being continued on remdesivir day 3. 08/18/2020 Patient respiratory status appears to be worsening and patient is presently on 10 L of oxygen patient will be closely monitored and the patient continues to be on Decadron and did receive remdesivir and plasma.patient doesn't appear to be doing well at this time. Still short of breath on 10 L of oxygen and saturating atlow 90s and patient is presently on Lovenox 40 mg subcutaneous. D-dimer is 0.74, chest x-ray continues to show significant bilateral infiltrate. 08/19/2020 Patient respiratory status has worsened patient remains on Decadron and the patient was transferred to ICU presently on FiO2 of 50% and flow of around 60 L per minute. Patient is not in respiratory distress. 08/20/2020 Patient remains on airvo , 60 L of oxygenchest x-ray showing diffuse interstitial infiltrates, LDH and other included markers are bit worse compared to yesterday. Finished course of remdesivir, received 1 unit of convalescent plasma. 08/21/2020 Patient can use when 69 as follows although saturations are bit better his LDH is coming down inflammatory markers seem to be getting better. 08/22/2020 Patient chest x-ray episode significant infiltrate patient remains on 6 L frogs and along with as needed Ventimask. 08/23/2020 Patient clinical condition did not change much. Patient is being started on Toclizumab to my monoclonal antibody for IL-6 receptor. 08/24/2020 Patient feels marginally better, patient remains in the 50 L of oxygen today patient has IL-6 level that was elevated and patient is on monoclonal antibody for that. Constitutional: Denied any fatigue denied any fever. Cardio vascular: denied any chest pain, palpitations Gastrointestinal denied any nausea vomiting Pulmonary: continuous to be short of breath Neurologic denied any new focal deficits All inpatient medications were reviewed and appropriate changes in these medications as dictated in the interval history and assessment and plan. Objective - Vital Signs Vital signs: Vital Signs Temp 98.4 F 08/24/20 08:00 Pulse 71 08/24/20 10:00 Resp 16 08/24/20 10:00 BP 117/94 08/24/20 10:00 Pulse Ox 94 L 08/24/20 10:00 Intake & Output 08/23/20 08/24/20 08/24/20 18:59 06:59 18:59 Intake Total 640 1160 500 Output Total 1950 750 0 Balance -1310 410 500 Weight 132.3 kg 132.3 kg Intake: IV 240 120 0 0.9 240 120 0 Intake, IV Titration 100 80 Amount Tocilizumab 400 mg In 100 80 Sodium Chloride 0.9% 80 ml @ 100 mls/hr IV Q12H [facility] Rx#:[id number] Oral 300 960 500 Output: Urine 1950 750 0 Other: Voiding Method Urinal Urinal - Exam PHYSICAL EXAMINATION: GENERAL: The patient is alert and oriented x3, patient is not in respiratory distress on 60 L of oxygen. Well developed, well nourished. HEENT: Pupils are round and equally reacting to light. EOMI. No scleral icterus. No conjunctival pallor. Normocephalic, atraumatic. No pharyngeal erythema. No thyromegaly. CARDIOVASCULAR: S1 and S2 present. No murmurs, rubs, or gallops. PULMONARY: Chest is clear to auscultation, no wheezing or crackles. ABDOMEN: Soft, nontender, nondistended, normoactive bowel sounds. No palpable organomegaly. MUSCULOSKELETAL: No joint swelling or deformity. EXTREMITIES: No cyanosis, clubbing, or pedal edema. NEUROLOGICAL: Gross neurological examination did not reveal any focal deficits. SKIN: No rashes. Note: Because of COVID 19 isolation, some of the history and physical exam findings are indirect and obtained from nursing staff, and other physician examinations to avoid unnecessary contact with the patient. - Labs CBC & Chem 7: 08/24/20 03:36 08/24/20 03:36 Labs: Abnormal Lab Results - Last 24 Hours (Table) 08/24/20 08/24/20 08/24/20 Range/Units 03:36 03:36 03:36 WBC 21.2 H (3.8-10.6) k/uL Plt Count 558 H (150-450) k/uL Neutrophils # 17.9 H (1.3-7.7) k/uL Monocytes # 1.2 H (0-1.0) k/uL D-Dimer 1.36 H (<0.60) mg/L FEU Sodium 131 L (137-145) mmol/L Chloride 95 L (98-107) mmol/L Glucose 150 H (74-99) mg/dL Ferritin 632.7 H (22.0-322.0) ng/mL C-Reactive Protein 121.4 H (<10.0) mg/L Assessment and Plan Plan: Acute COVID-19 viral pneumoniacan use oxygen support close monitoring if needed patient will be transferred to ICU [address] with Decadron 6 mg along with Lovenox 40 mg and patient is fourth day of Remdesivir . Although patient remains on 50 L of oxygen ration doesn't have significant improvement in his respiratory status.patient was started on Toclizumab Acute hypoxic respiratory failure secondary to COVID-19 viral infection Sepsis Lactic acidosis resolved GERD History of GI bleed and gastric ulcer Hypertension DVT prophylaxis with Lovenox subcu
[2020-08-24] MEDS: ONDANSETRON 4 MG/2 ML VIAL IVP PRN (15:38)
[2020-08-24] MEDS: MELATONIN 5 MG TABLET PO SCH (20:21)
[2020-08-25] MEDS: ONDANSETRON 4 MG/2 ML VIAL IVP PRN ×3 (02:40→20:42)
[2020-08-25 04:46] LABS: Basophils # (A) 0.1 k/uL (0-0.2); Basophils % (A) 0 %; Eosinophils # (A) 0.2 k/uL (0-0.7); Eosinophils % (A) 1 %; HCT 39.3 % (39.0-53.0); HGB 13.2 gm/dL (13.0-17.5); Lymphocytes # (A) 1.5 k/uL (1.0-4.8); Lymphocytes % (A) 6 %; MCHC 33.4 g/dL (31.0-37.0); MCV 92.7 fL (80.0-100.0); Mean Platelet Volume 6.9; Monocytes # (A) 1.5 k/uL (0-1.0); Monocytes % (A) 6 %; Neutrophils # (A) 20.7 k/uL (1.3-7.7); Neutrophils % (A) 85 %; Platelet Count 600 k/uL (150-450); RBC 4.25 m/uL (4.30-5.90); RDW 12.9 % (11.5-15.5); WBC 24.4 k/uL (3.8-10.6)
[2020-08-25 05:01] LABS: African American GFR (CKD) >90 (>60 ml/min/1.73 sqM); Anion Gap 5 mmol/L; Blood Urea Nitrogen 22 mg/dL (9-20); C Reactive Protein 44.1 mg/L (<10.0); Calcium 9.3 mg/dL (8.4-10.2); Carbon Dioxide 32 mmol/L (22-30); Chloride 93 mmol/L (98-107); Glucose 127 mg/dL (74-99); Non-African American GFR(CKD) >90 (>60 ml/min/1.73 sqM); Potassium 5.2 mmol/L (3.5-5.1); Sodium 130 mmol/L (137-145)
[2020-08-25] MEDS: SYMBICORT 160-4.5 MCG INHALER INHALATION SCH ×2 (08:09→19:59)
[2020-08-25] MEDS: ALBUTEROL HFA INHALER INHALATION SCH ×4 (08:09→19:59)
--- NOTE | 2020-08-25 08:30 | XR ---
EXAMINATION TYPE: XR chest 1V portable DATE OF EXAM: 08/25/2020 COMPARISON: 08/24/2020 HISTORY: Shortness of breath TECHNIQUE: Single frontal view of the chest is obtained. FINDINGS: Diffuse patchy bilateral air space disease. Stable. Heart size stable. No pleural effusion or pneumothorax. Limited inspiration. IMPRESSION: Stable diffuse multifocal pneumonia.
[2020-08-25] MEDS: amLODIPine 5 MG TAB PO SCH (09:16)
[2020-08-25] MEDS: dexAMETHasone 2 MG TAB PO SCH (09:17)
[2020-08-25] MEDS: ENOXAPARIN 60 MG/0.6 ML SYRINGE SQ SCH ×2 (09:17→20:42)
[2020-08-25] MEDS: DULoxetine HCL 60 MG CAPSULE.DR PO SCH (09:17)
[2020-08-25] MEDS: ASCORBIC ACID 500 MG TAB PO SCH (09:17)
[2020-08-25] MEDS: FAMOTIDINE 20 MG TAB PO SCH ×2 (09:17→20:42)
[2020-08-25] MEDS: CHOLECALCIFEROL 1,000 UNIT TAB PO SCH (09:17)
[2020-08-25] MEDS: ZINC SULFATE 220 MG CAP PO SCH (09:17)
[2020-08-25] MEDS: lisinopriL 20 MG TAB PO SCH (09:17)
[2020-08-25 10:03] LABS: Ferritin 741.4 ng/mL (22.0-322.0)
--- NOTE | 2020-08-25 11:31 | PN ---
PROGRESS NOTE PULMONARY/CRITICAL CARE PROGRESS NOTE: DATE OF SERVICE: August 25, 2020. Critical care time 33 minutes. 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 He was moved to the intensive care unit for profound hypoxemia and impending respiratory failure on August 19. He has been here since that time. The patient has been on AIRVO. Currently, he is on 50 L/minute and 94% FiO2. He has also been on and off the non-rebreather mask. The patient has received full course therapy including convalescent plasma, and tocilizumab. Anyway, currently, he is about the same as he has been. He is still short of breath. He seemed to improve after the tocilizumab initially. Chest x-ray is about the same. His primary issue is difficulty in breathing. His chest x-ray is essentially unchanged. He is not receiving any IV fluids. PHYSICAL EXAMINATION: VITAL SIGNS: Currently, vital signs include temperature 97.8, heart rate 75, respiratory rate 22, blood pressure 96/68 mean 77 and saturations at 100%. GENERAL: Appears in no acute distress. Mildly tachypneic. Mild conversational dyspnea. No audible wheezing. HEENT: Examination is grossly unremarkable. NECK: Supple. Full range of motion. No adenopathy. Neck veins are flat. CARDIOVASCULAR: Examination reveals regular rhythm and rate. Heart rate mid 70s. S1, S2 normal. LUNGS: Reveals some coarse rhonchi. No wheezes or crackles. ABDOMEN: Soft. EXTREMITIES are intact. No cyanosis, clubbing, or edema. SKIN: Without rash. NEUROLOGIC: Examination is nonfocal. LABS: Reviewed. White count 24.4, hemoglobin 13.2, hematocrit 39.3, platelet count 600,000. D-dimer 1.48. Sodium 130, potassium 5.2, chloride 93, CO2 32, anion gap is 5. BUN and creatinine were 23 and 0.84. Ferritin is 741.4. C-reactive protein is 44.1. Microbiology is thus far negative. Chest x-ray from the shows stable diffuse bilateral infiltrates. MEDICATIONS: Reviewed. Currently, he is on Tylenol, albuterol inhaler, Xanax, amlodipine, ascorbic acid, Symbicort, Suboxone, vitamin D3, Decadron, Cymbalta, Lovenox, Pepcid, Motrin, lisinopril, melatonin, Narcan, Zofran, and zinc. ASSESSMENT: 1. Acute hypoxemic respiratory failure, secondary to Covid-19 pneumonia/pneumonitis, with acute respiratory distress syndrome, stable. 2. Essential hypertension. 3. Status post Remdesivir for 5 days as well as convalescent plasma for 2 doses, as well as tocilizumab, 400 mg x2 for cytokine storm syndrome. 4. History of gastroesophageal reflux disease without esophagitis. 5. Lifetime nonsmoker. 6. Obesity. PLAN: Currently, the patient is doing about the same. Chest x-ray stable. He has not deteriorated, but he certainly has improved all that much. Seemed to get better initially after the tocilizumab. We will continue to follow. Prognosis is guarded. Critical care time 33 minutes. GHADA / HUMPHREY: [id number] /
--- NOTE | 2020-08-25 14:39 | P.PN ---
Subjective Acute COVID-19 viral pneumonia Patient is a 50-year-old male with a known history of hypertension, GERD, lower GI bleed, right shoulder injury/pain presents to ER with complaints of generalized weakness and body aches and fever and chills and worsening shortness of breath for the past 4 days. Patient was seen at his PCPs office yesterday and tested for COVID-19 which came out positive. Patient states that he developed shortness of breath this morning and his pulse ox was 88% on room air. Patient presented to ER for evaluation. 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 No complaints of chest pain. No nausea vomiting or abdominal pain or diarrhea. Denied any loss of smell. Patient did have headache this morning. Currently denies any headache. Chest x-ray showed bilateral pneumonia. EKG showed normal sinus rhythm Laboratory data showed lymphocyte count 0.7, WBC 9.3, D-dimer 0.38 Bicarb is 35 Lactic acid 2.6 Magnesium 1.7, ferritin 1161, AST 71 ALT 50 and LDH 1093 and CRP 142 Procalcitonin 0.24 08/16/2020 Patient is currently resting in bed comfortably. No complaints of chest pain or worsening shortness of breath. No acute distress. Awake alert when x3. Pat ient is currently requiring oxygen 5 L via nasal cannula. Patient has been febrile with T-max 101.7 Laboratory reviewed. Chest x-ray showed consistent with bilateral pneumonia. Currently being treated dexamethasone, Lovenox and remdesivir. Patient is also on antibiotics in the form of azithromycin. Pulmonary is on board. 08/17/2020 Patient is awake alert oriented x3. Still requiring oxygen at 5 L via nasal cannula. T-max is 99.2 patient has been afebrile currently. No nausea vomiting or abdominal pain or diarrhea. Chest x-ray showed limited exam demonstrates multifocal airspace disease correlate for pneumonia. Patient is being continued on remdesivir day 3. 08/18/2020 Patient respiratory status appears to be worsening and patient is presently on 10 L of oxygen patient will be closely monitored and the patient continues to be on Decadron and did receive remdesivir and plasma.patient doesn't appear to be doing well at this time. Still short of breath on 10 L of oxygen and saturating atlow 90s and patient is presently on Lovenox 40 mg subcutaneous. D-dimer is 0.74, chest x-ray continues to show significant bilateral infiltrate. 08/19/2020 Patient respiratory status has worsened patient remains on Decadron and the patient was transferred to ICU presently on FiO2 of 50% and flow of around 60 L per minute. Patient is not in respiratory distress. 08/20/2020 Patient remains on airvo , 60 L of oxygenchest x-ray showing diffuse interstitial infiltrates, LDH and other included markers are bit worse compared to yesterday. Finished course of remdesivir, received 1 unit of convalescent plasma. 08/21/2020 Patient can use when 69 as follows although saturations are bit better his LDH is coming down inflammatory markers seem to be getting better. 08/22/2020 Patient chest x-ray episode significant infiltrate patient remains on 6 L frogs and along with as needed Ventimask. 08/23/2020 Patient clinical condition did not change much. Patient is being started on Toclizumab to my monoclonal antibody for IL-6 receptor. 08/24/2020 Patient feels marginally better, patient remains in the 50 L of oxygen today patient has IL-6 level that was elevated and patient is on monoclonal antibody for that. 08/25/2020 Patient feels bit better. Patient remains on 15 L of oxygen. Patient was started on gentle hydration patient is bit hyponatremic probably secondary to hypovolemia . Constitutional: Denied any fatigue denied any fever. Cardio vascular: denied any chest pain, palpitations Gastrointestinal denied any nausea vomiting Pulmonary: continuous to be short of breath Neurologic denied any new focal deficits All inpatient medications were reviewed and appropriate changes in these medications as dictated in the interval history and assessment and plan. Objective - Vital Signs Vital signs: Vital Signs Temp 97.8 F 08/25/20 12:00 Pulse 70 08/25/20 12:00 Resp 22 08/25/20 12:00 BP 121/85 08/25/20 12:00 Pulse Ox 92 L 08/25/20 12:07 Intake & Output 08/24/20 08/25/20 08/25/20 18:59 06:59 18:59 Intake Total 986 1200 500 Output Total 1100 750 860 Balance -114 450 -360 Weight 132.3 kg 130.6 kg Intake: IV 0 0.9 0 Oral 986 1200 500 Output: Urine 1100 750 860 Other: Voiding Method Urinal # Voids 1 1 - Exam PHYSICAL EXAMINATION: GENERAL: The patient is alert and oriented x3, patient is not in respiratory distress on 60 L of oxygen. Well developed, well nourished. HEENT: Pupils are round and equally reacting to light. EOMI. No scleral icterus. No conjunctival pallor. Normocephalic, atraumatic. No pharyngeal erythema. No thyromegaly. CARDIOVASCULAR: S1 and S2 present. No murmurs, rubs, or gallops. PULMONARY: Chest is clear to auscultation, no wheezing or crackles. ABDOMEN: Soft, nontender, nondistended, normoactive bowel sounds. No palpable organomegaly. MUSCULOSKELETAL: No joint swelling or deformity. EXTREMITIES: No cyanosis, clubbing, or pedal edema. NEUROLOGICAL: Gross neurological examination did not reveal any focal deficits. SKIN: No rashes. Note: Because of COVID 19 isolation, some of the history and physical exam findings are indirect and obtained from nursing staff, and other physician examinations to avoid unnecessary contact with the patient. - Labs CBC & Chem 7: 08/25/20 03:52 08/25/20 03:52 Labs: Abnormal Lab Results - Last 24 Hours (Table) 08/25/20 08/25/20 08/25/20 Range/Units 03:52 03:52 03:52 WBC 24.4 H (3.8-10.6) k/uL RBC 4.25 L (4.30-5.90) m/uL Plt Count 600 H (150-450) k/uL Neutrophils # 20.7 H (1.3-7.7) k/uL Monocytes # 1.5 H (0-1.0) k/uL D-Dimer 1.48 H (<0.60) mg/L FEU Sodium 130 L (137-145) mmol/L Potassium 5.2 H (3.5-5.1) mmol/L Chloride 93 L (98-107) mmol/L Carbon Dioxide 32 H (22-30) mmol/L BUN 22 H (9-20) mg/dL Glucose 127 H (74-99) mg/dL Ferritin 741.4 H (22.0-322.0) ng/mL C-Reactive Protein 44.1 H (<10.0) mg/L Assessment and Plan Plan: Acute COVID-19 viral pneumoniacan use oxygen support close monitoring if needed patient will be transferred to ICU [address] with Decadron 6 mg along with Lovenox 40 mg and patient is fourth day of Remdesivir . Although patient remains on 50 L of oxygen ration doesn't have significant improvement in his respiratory stat us.patient is on Toclizumab -possible hypovolemic hyponatremia: IV fluids in the monitor sodium. Acute hypoxic respiratory failure secondary to COVID-19 viral infection Sepsis Lactic acidosis resolved GERD History of GI bleed and gastric ulcer Hypertension DVT prophylaxis with Lovenox subcu
[2020-08-25] MEDS: SODIUM CHLORIDE 0.9% 1,000 ML IV SCH (15:34)
[2020-08-25] MEDS: SENNOSIDES 8.6 MG TAB PO SCH (20:42)
[2020-08-25] MEDS: MELATONIN 5 MG TABLET PO SCH (20:42)
[2020-08-25] MEDS: ALPRAZolam 0.25 MG TAB PO PRN (20:43)
[2020-08-26 04:21] LABS: Basophils # (A) 0.1 k/uL (0-0.2); Basophils % (A) 1 %; Eosinophils # (A) 0.2 k/uL (0-0.7); Eosinophils % (A) 1 %; HCT 39.8 % (39.0-53.0); HGB 13.3 gm/dL (13.0-17.5); Lymphocytes # (A) 1.8 k/uL (1.0-4.8); Lymphocytes % (A) 7 %; MCH 30.9 pg (25.0-35.0); MCHC 33.4 g/dL (31.0-37.0); MCV 92.7 fL (80.0-100.0); Mean Platelet Volume 6.6; Monocytes # (A) 1.6 k/uL (0-1.0); Monocytes % (A) 6 %; Neutrophils # (A) 21.3 k/uL (1.3-7.7); Neutrophils % (A) 84 %; Platelet Count 601 k/uL (150-450); RBC 4.29 m/uL (4.30-5.90); RDW 12.8 % (11.5-15.5); WBC 25.5 k/uL (3.8-10.6)
[2020-08-26] MEDS: SODIUM CHLORIDE 0.9% 1,000 ML IV SCH ×3 (04:26→22:04)
[2020-08-26 04:33] LABS: ALT 50 U/L (4-49); AST 35 U/L (17-59); African American GFR (CKD) >90 (>60 ml/min/1.73 sqM); Albumin 3.3 g/dL (3.5-5.0); Alkaline Phosphatase 98 U/L (38-126); Anion Gap 4 mmol/L; Blood Urea Nitrogen 18 mg/dL (9-20); Calcium 9.4 mg/dL (8.4-10.2); Carbon Dioxide 33 mmol/L (22-30); Chloride 93 mmol/L (98-107); Glucose 156 mg/dL (74-99); Non-African American GFR(CKD) >90 (>60 ml/min/1.73 sqM); Potassium 5.3 mmol/L (3.5-5.1); Sodium 130 mmol/L (137-145); Total Bilirubin 0.3 mg/dL (0.2-1.3); Total Protein 6.3 g/dL (6.3-8.2)
[2020-08-26] MEDS: ONDANSETRON 4 MG/2 ML VIAL IVP PRN ×2 (04:33→20:20)
[2020-08-26] MEDS: FAMOTIDINE 20 MG TAB PO SCH ×2 (08:08→20:20)
[2020-08-26] MEDS: lisinopriL 20 MG TAB PO SCH (08:08)
[2020-08-26] MEDS: CHOLECALCIFEROL 1,000 UNIT TAB PO SCH (08:08)
[2020-08-26] MEDS: SENNOSIDES 8.6 MG TAB PO SCH ×2 (08:08→20:20)
[2020-08-26] MEDS: DULoxetine HCL 60 MG CAPSULE.DR PO SCH (08:08)
[2020-08-26] MEDS: ASCORBIC ACID 500 MG TAB PO SCH (08:08)
[2020-08-26] MEDS: amLODIPine 5 MG TAB PO SCH (08:08)
[2020-08-26] MEDS: ZINC SULFATE 220 MG CAP PO SCH (08:08)
[2020-08-26] MEDS: ENOXAPARIN 60 MG/0.6 ML SYRINGE SQ SCH ×2 (08:10→21:00)
[2020-08-26] MEDS: SYMBICORT 160-4.5 MCG INHALER INHALATION SCH ×2 (08:28→20:46)
[2020-08-26] MEDS: ALBUTEROL HFA INHALER INHALATION SCH ×4 (08:28→20:46)
--- NOTE | 2020-08-26 08:29 | XR ---
EXAMINATION TYPE: XR chest 1V DATE OF EXAM: 08/26/2020 COMPARISON: Prior chest x-ray 08/25/2020 HISTORY: Covid pneumonia TECHNIQUE: Single frontal view of the chest is obtained. FINDINGS: There is not a significant change compared to prior exam. IMPRESSION: Findings compatible with bilateral pneumonia.
[2020-08-26 08:57] LABS: C Reactive Protein 19.9 mg/L (<10.0)
[2020-08-26] MEDS: dexAMETHasone 2 MG TAB PO SCH (09:32)
--- NOTE | 2020-08-26 12:08 | PN ---
PROGRESS NOTE PULMONARY/CRITICAL CARE PROGRESS NOTE: DATE OF SERVICE: August 26, 2020. 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 He was admitted with a diagnosis of COVID pneumonia. He was moved to the intensive care unit for hypoxemia and impending respiratory failure on August 19. He has been here since that time. Currently, he is on AIRVO at 45 L/minute and 80% FiO2. That is an improvement. He is getting saline at 100 mL an hour. Other than that, he is doing about the same. He clinically feels better. He did get 5 days of Remdesivir. He got convalescent plasma x2, and also received the tocilizumab x2 doses, 400 mg each. He is on all other important medications. Overall, the patient appears to be improving slightly. He feels less short of breath. PHYSICAL EXAMINATION: VITAL SIGNS: Current vital signs reviewed. Temperature 98.3, heart rate 90, respiratory rate 16, blood pressure 121/70, mean 87, saturations are in the high 80s to low 90 range. Appears in no acute distress. HEENT: Examination is grossly unremarkable. AIRVO cannula in place. NECK: Supple. Full range of motion. No adenopathy. Neck veins are flat. CARDIOVASCULAR: Examination reveals regular rhythm and rate. S1, S2 normal. LUNGS: Reveal scattered rhonchi and crackles. Breath sounds equal. ABDOMEN: Soft. EXTREMITIES: Intact. No edema. SKIN: Without rash. NEUROLOGIC: Examination is nonfocal. LABS: Reviewed. White count 25.5, hemoglobin 13.3, hematocrit 39.8, platelet count 601,000. D-dimer is 1.41. Sodium 130, potassium 5.3, chloride 93, CO2 33. Sodium 130, potassium 5.3, chloride 93, CO2 33. Anion gap is 4. BUN and creatinine were 18 and 0.8. The rest of the labs look pretty good. Albumin 3.3. C-reactive protein is down to 19.9. Microbiology including blood cultures are negative. IMAGING: Chest x-ray dated August 16 was compared to the previous day's chest x-ray show no significant change. He has bilateral airspace disease. MEDICATIONS: Reviewed. Currently, he is on Tylenol, albuterol inhaler, Xanax, amlodipine, vitamin C, Symbicort, Suboxone, vitamin D3, Cymbalta, Lovenox, Pepcid, ibuprofen, lisinopril, melatonin, Narcan, Zofran, Senokot, and zinc. ASSESSMENT: 1. Acute hypoxemic respiratory failure, secondary to COVID-19 pneumonia/pneumonitis, with acute respiratory distress syndrome, stable. 2. Essential hypertension. 3. Status post 5 days of Remdesivir, convalescent plasma for 2 doses, and tocilizumab 400 mg x2, for cytokine storm syndrome. 4. History of gastroesophageal reflux disease without esophagitis. 5. Lifetime nonsmoker. 6. Obesity. PLAN: Currently, the patient seems to be doing a bit better. Oxygen requirements have declined slightly. Chest x-ray is about the same. No additional recommendations are made. We will continue to follow. Prognosis is guarded. We will cut back on a daily labs. Additional recommendations and suggestions are forthcoming. Critical care time 32 minutes. MMODL / IJN: [id number] /
[2020-08-26 12:26] LABS: Ferritin 558.5 ng/mL (22.0-322.0)
--- NOTE | 2020-08-26 12:38 | P.PN ---
Subjective Acute COVID-19 viral pneumonia Patient is a 50-year-old male with a known history of hypertension, GERD, lower GI bleed, right shoulder injury/pain presents to ER with complaints of generalized weakness and body aches and fever and chills and worsening shortness of breath for the past 4 days. Patient was seen at his PCPs office yesterday and tested for COVID-19 which came out positive. Patient states that he developed shortness of breath this morning and his pulse ox was 88% on room air. Patient presented to ER for evaluation. 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 No complaints of chest pain. No nausea vomiting or abdominal pain or diarrhea. Denied any loss of smell. Patient did have headache this morning. Currently denies any headache. Chest x-ray showed bilateral pneumonia. EKG showed normal sinus rhythm Laboratory data showed lymphocyte count 0.7, WBC 9.3, D-dimer 0.38 Bicarb is 35 Lactic acid 2.6 Magnesium 1.7, ferritin 1161, AST 71 ALT 50 and LDH 1093 and CRP 142 Procalcitonin 0.24 08/16/2020 Patient is currently resting in bed comfortably. No complaints of chest pain or worsening shortness of breath. No acute distress. Awake alert when x3. Pat ient is currently requiring oxygen 5 L via nasal cannula. Patient has been febrile with T-max 101.7 Laboratory reviewed. Chest x-ray showed consistent with bilateral pneumonia. Currently being treated dexamethasone, Lovenox and remdesivir. Patient is also on antibiotics in the form of azithromycin. Pulmonary is on board. 08/17/2020 Patient is awake alert oriented x3. Still requiring oxygen at 5 L via nasal cannula. T-max is 99.2 patient has been afebrile currently. No nausea vomiting or abdominal pain or diarrhea. Chest x-ray showed limited exam demonstrates multifocal airspace disease correlate for pneumonia. Patient is being continued on remdesivir day 3. 08/18/2020 Patient respiratory status appears to be worsening and patient is presently on 10 L of oxygen patient will be closely monitored and the patient continues to be on Decadron and did receive remdesivir and plasma.patient doesn't appear to be doing well at this time. Still short of breath on 10 L of oxygen and saturating atlow 90s and patient is presently on Lovenox 40 mg subcutaneous. D-dimer is 0.74, chest x-ray continues to show significant bilateral infiltrate. 08/19/2020 Patient respiratory status has worsened patient remains on Decadron and the patient was transferred to ICU presently on FiO2 of 50% and flow of around 60 L per minute. Patient is not in respiratory distress. 08/20/2020 Patient remains on airvo , 60 L of oxygenchest x-ray showing diffuse interstitial infiltrates, LDH and other included markers are bit worse compared to yesterday. Finished course of remdesivir, received 1 unit of convalescent plasma. 08/21/2020 Patient can use when 69 as follows although saturations are bit better his LDH is coming down inflammatory markers seem to be getting better. 08/22/2020 Patient chest x-ray episode significant infiltrate patient remains on 6 L frogs and along with as needed Ventimask. 08/23/2020 Patient clinical condition did not change much. Patient is being started on Toclizumab to my monoclonal antibody for IL-6 receptor. 08/24/2020 Patient feels marginally better, patient remains in the 50 L of oxygen today patient has IL-6 level that was elevated and patient is on monoclonal antibody for that. 08/25/2020 Patient feels bit better. Patient remains on 50 L of oxygen. Patient was started on gentle hydration patient is bit hyponatremic probably secondary to hypovolemia . 08/26 2020 patient remains on the 45 L of oxygen, IV normal saline.her serum creatinine remained stable continue with IV normal saline.completed treatment with Remdesivir, convalescent plasma and Toclizumab Constitutional: Denied any fatigue denied any fever. Cardio vascular: denied any chest pain, palpitations Gastrointestinal denied any nausea vomiting Pulmonary: continuous to be short of breath Neurologic denied any new focal deficits All inpatient medications were reviewed and appropriate changes in these medications as dictated in the interval history and assessment and plan. Objective - Vital Signs Vital signs: Vital Signs Temp 98.3 F 08/26/20 08:00 Pulse 90 08/26/20 10:00 Resp 16 08/26/20 10:00 BP 121/70 08/26/20 10:00 Pulse Ox 88 L 08/26/20 12:09 Intake & Output 08/25/20 08/26/20 08/26/20 18:59 06:59 18:59 Intake Total 850 1200 400 Output Total 1860 1225 100 Balance -1010 -25 300 Weight 129.9 kg Intake: Intake, IV Titration 350 1200 400 Amount Sodium Chloride 0.9% 1, 350 1200 400 000 ml @ 100 mls/hr IV . Q10H [facility] Rx#:[id number] Oral 500 Output: Urine 1860 1225 100 Other: Voiding Method Urinal # Voids 1 - Exam PHYSICAL EXAMINATION: GENERAL: The patient is alert and oriented x3, patient is not in respiratory distress on 60 L of oxygen. Well developed, well nourished. HEENT: Pupils are round and equally reacting to light. EOMI. No scleral icterus. No conjunctival pallor. Normocephalic, atraumatic. No pharyngeal erythema. No thyromegaly. CARDIOVASCULAR: S1 and S2 present. No murmurs, rubs, or gallops. PULMONARY: Chest is clear to auscultation, no wheezing or crackles. ABDOMEN: Soft, nontender, nondistended, normoactive bowel sounds. No palpable organomegaly. MUSCULOSKELETAL: No joint swelling or deformity. EXTREMITIES: No cyanosis, clubbing, or pedal edema. NEUROLOGICAL: Gross neurological examination did not reveal any focal deficits. SKIN: No rashes. Note: [facility], some of the history and physical exam findings are indirect and obtained from nursing staff, and other physician examinations to avoid unnecessary contact with the patient. - Labs CBC & Chem 7: 08/26/20 03:53 08/26/20 03:53 Labs: Abnormal Lab Results - Last 24 Hours (Table) 08/26/20 08/26/20 08/26/20 Range/Units 03:53 03:53 03:53 WBC 25.5 H (3.8-10.6) k/uL RBC 4.29 L (4.30-5.90) m/uL Plt Count 601 H (150-450) k/uL Neutrophils # 21.3 H (1.3-7.7) k/uL Monocytes # 1.6 H (0-1.0) k/uL D-Dimer 1.41 H (<0.60) mg/L FEU Sodium 130 L (137-145) mmol/L Potassium 5.3 H (3.5-5.1) mmol/L Chloride 93 L (98-107) mmol/L Carbon Dioxide 33 H (22-30) mmol/L Glucose 156 H (74-99) mg/dL Ferritin (22.0-322.0) ng/mL ALT 50 H (4-49) U/L C-Reactive Protein (<10.0) mg/L Albumin 3.3 L (3.5-5.0) g/dL 08/26/20 Range/Units 03:53 WBC (3.8-10.6) k/uL RBC (4.30-5.90) m/uL Plt Count (150-450) k/uL Neutrophils # (1.3-7.7) k/uL Monocytes # (0-1.0) k/uL D-Dimer (<0.60) mg/L FEU Sodium (137-145) mmol/L Potassium (3.5-5.1) mmol/L Chloride (98-107) mmol/L Carbon Dioxide (22-30) mmol/L Glucose (74-99) mg/dL Ferritin 558.5 H (22.0-322.0) ng/mL ALT (4-49) U/L C-Reactive Protein 19.9 H (<10.0) mg/L Albumin (3.5-5.0) g/dL Assessment and Plan Plan: Acute COVID-19 viral pneumoniacan use oxygen support close monitoring if needed patient will be transferred to ICU [address] with Decadron 6 mg along with Lovenox 40 mg and patient is fourth day of Remdesivir . Although patient remains on 50 L of oxygen ration doesn't have significant improvement in his respiratory status.patient is on Toclizumab -possible hypovolemic hyponatremia: IV fluids in the monitor sodium. Acute hypoxic respiratory failure secondary to COVID-19 viral infection Sepsis Lactic acidosis resolved GERD History of GI bleed and gastric ulcer Hypertension DVT prophylaxis with Lovenox subcu
[2020-08-26] MEDS: ALPRAZolam 0.25 MG TAB PO PRN ×2 (20:20→20:34)
[2020-08-26] MEDS: MELATONIN 5 MG TABLET PO SCH (20:20)
[2020-08-27] MEDS: ONDANSETRON 4 MG/2 ML VIAL IVP PRN ×4 (03:10→22:51)
[2020-08-27 04:02] LABS: HCT 39.8 % (39.0-53.0); HGB 13.3 gm/dL (13.0-17.5); MCH 31.4 pg (25.0-35.0); MCHC 33.4 g/dL (31.0-37.0); MCV 94.1 fL (80.0-100.0); Platelet Count 585 k/uL (150-450); RBC 4.23 m/uL (4.30-5.90); WBC 16.7 k/uL (3.8-10.6)
[2020-08-27 04:21] LABS: ALT 60 U/L (4-49); AST 40 U/L (17-59); African American GFR (CKD) >90 (>60 ml/min/1.73 sqM); Alkaline Phosphatase 103 U/L (38-126); Anion Gap 2 mmol/L; Blood Urea Nitrogen 20 mg/dL (9-20); Calcium 9.2 mg/dL (8.4-10.2); Carbon Dioxide 33 mmol/L (22-30); Chloride 99 mmol/L (98-107); Glucose 131 mg/dL (74-99); Non-African American GFR(CKD) >90 (>60 ml/min/1.73 sqM); Potassium 5.8 mmol/L (3.5-5.1); Sodium 134 mmol/L (137-145); Total Bilirubin 0.3 mg/dL (0.2-1.3); Total Protein 5.9 g/dL (6.3-8.2)
[2020-08-27] MEDS: SODIUM CHLORIDE 0.9% 1,000 ML IV SCH ×2 (06:51→18:38)
[2020-08-27] MEDS: ALBUTEROL HFA INHALER INHALATION SCH ×4 (07:47→21:47)
[2020-08-27] MEDS: SYMBICORT 160-4.5 MCG INHALER INHALATION SCH ×2 (07:47→21:47)
[2020-08-27] MEDS: ENOXAPARIN 60 MG/0.6 ML SYRINGE SQ SCH ×2 (08:50→20:53)
[2020-08-27] MEDS: CHOLECALCIFEROL 1,000 UNIT TAB PO SCH (08:50)
[2020-08-27] MEDS: DULoxetine HCL 60 MG CAPSULE.DR PO SCH (08:50)
[2020-08-27] MEDS: ASCORBIC ACID 500 MG TAB PO SCH (08:50)
[2020-08-27] MEDS: SENNOSIDES 8.6 MG TAB PO SCH ×3 (08:50→21:40)
[2020-08-27] MEDS: lisinopriL 20 MG TAB PO SCH (08:50)
[2020-08-27] MEDS: FAMOTIDINE 20 MG TAB PO SCH ×2 (08:50→20:53)
[2020-08-27] MEDS: amLODIPine 5 MG TAB PO SCH (08:50)
[2020-08-27] MEDS: ZINC SULFATE 220 MG CAP PO SCH (08:51)
--- NOTE | 2020-08-27 13:00 | PN ---
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 He was admitted with a diagnosis of Covid pneumonia. He was moved to the intensive care unit for hypoxemia and impending respiratory failure on August 19. He has been here in the unit since that time. Currently, he is on AIRVO at 45 L/minute and 80%. He is getting saline at 100 mL an hour. The patient has received full course therapy including 5 days of Remdesivir, convalescent plasma x2, and tocilizumab, 400 mg x2 doses. He is also on all the other important medications Decadron, Pepcid, melatonin, vitamin C, vitamin D, and zinc. Currently, he is doing about the same. Honestly, he has made very little progress in 5 or 6 days since I have been here. PHYSICAL EXAMINATION: VITAL SIGNS: Current vital signs are reviewed. Temperature 97.8, heart rate 84, respiratory rate 15, blood pressure 88/59 mean 68. Saturations ranged from 88-91 percent. GENERAL: Appears in no acute distress. Mildly tachypneic. No audible wheezing. HEENT: Examination is grossly unremarkable. AIRVO cannula in place. NECK: Supple. Full range of motion. No adenopathy. Neck veins are flat. CARDIOVASCULAR: Examination reveals a regular rhythm and rate. S1, S2 normal. No S3, S4, or murmur. LUNGS: Reveal diffuse coarse rhonchi. Breath sounds equal. No wheezes or crackles. ABDOMEN: Obese. Bowel sounds are heard. EXTREMITIES are intact. No cyanosis, clubbing, or edema. SKIN: Without rash. NEUROLOGIC: Examination is brief but nonfocal. LABS: Reviewed. White count 16.7, hematocrit 13.3, hematocrit 39.8, and platelet count 585,000. Sodium 134, potassium 5.8, chloride 99, CO2 33, anion gap is 2. BUN and creatinine were 20 and 0.91. Albumin 3. Microbiology is currently negative. Chest x-ray was not done today. Previous chest x-ray shows stable findings of diffuse bilateral pneumonia. MEDICATIONS: Reviewed. Currently he is on Tylenol, albuterol inhaler, Xanax, amlodipine, vitamin C, Symbicort, Suboxone, vitamin D3, Cymbalta, Lovenox, Pepcid, ibuprofen, lisinopril, melatonin, Narcan, Zofran, Compazine, Senokot, saline IV and zinc. ASSESSMENT: 1. Acute hypoxemic respiratory failure, secondary to Covid 19 pneumonia/pneumonitis, with acute respiratory distress syndrome, stable. 2. Essential hypertension. 3. Status post 5 days of Remdesivir 2 doses with plasma, and 2 doses of tocilizumab, 400 mg. 4. History of gastroesophageal reflux disease without esophagitis. 5. Lifetime nonsmoker. 6. Obesity. PLAN: Overall, the patient's situation has only changed very little over the last 5-6 days that he has been here in the ICU. One day he is a bit better, one day he is about the same. The patient has received all the current medications available for this disease process. We will continue to follow. He remains on AIRVO. Critical care time: 32 minutes. MMALVERTOL / MITCHELLN: [id number] /
[2020-08-27] MEDS ORDERED: SODIUM POLYSTYRENE SULFONATE 15 GM/60 ML BOTTLE PO STA (13:22)
--- NOTE | 2020-08-27 13:53 | P.PN ---
Subjective Acute COVID-19 viral pneumonia Patient is a 50-year-old male with a known history of hypertension, GERD, lower GI bleed, right shoulder injury/pain presents to ER with complaints of generalized weakness and body aches and fever and chills and worsening shortness of breath for the past 4 days. Patient was seen at his PCPs office yesterday and tested for COVID-19 which came out positive. Patient states that he developed shortness of breath this morning and his pulse ox was 88% on room air. Patient presented to ER for evaluation. 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 No complaints of chest pain. No nausea vomiting or abdominal pain or diarrhea. Denied any loss of smell. Patient did have headache this morning. Currently denies any headache. Chest x-ray showed bilateral pneumonia. EKG showed normal sinus rhythm Laboratory data showed lymphocyte count 0.7, WBC 9.3, D-dimer 0.38 Bicarb is 35 Lactic acid 2.6 Magnesium 1.7, ferritin 1161, AST 71 ALT 50 and LDH 1093 and CRP 142 Procalcitonin 0.24 08/16/2020 Patient is currently resting in bed comfortably. No complaints of chest pain or worsening shortness of breath. No acute distress. Awake alert when x3. Pat ient is currently requiring oxygen 5 L via nasal cannula. Patient has been febrile with T-max 101.7 Laboratory reviewed. Chest x-ray showed consistent with bilateral pneumonia. Currently being treated dexamethasone, Lovenox and remdesivir. Patient is also on antibiotics in the form of azithromycin. Pulmonary is on board. 08/17/2020 Patient is awake alert oriented x3. Still requiring oxygen at 5 L via nasal cannula. T-max is 99.2 patient has been afebrile currently. No nausea vomiting or abdominal pain or diarrhea. Chest x-ray showed limited exam demonstrates multifocal airspace disease correlate for pneumonia. Patient is being continued on remdesivir day 3. 08/18/2020 Patient respiratory status appears to be worsening and patient is presently on 10 L of oxygen patient will be closely monitored and the patient continues to be on Decadron and did receive remdesivir and plasma.patient doesn't appear to be doing well at this time. Still short of breath on 10 L of oxygen and saturating atlow 90s and patient is presently on Lovenox 40 mg subcutaneous. D-dimer is 0.74, chest x-ray continues to show significant bilateral infiltrate. 08/19/2020 Patient respiratory status has worsened patient remains on Decadron and the patient was transferred to ICU presently on FiO2 of 50% and flow of around 60 L per minute. Patient is not in respiratory distress. 08/20/2020 Patient remains on airvo , 60 L of oxygenchest x-ray showing diffuse interstitial infiltrates, LDH and other included markers are bit worse compared to yesterday. Finished course of remdesivir, received 1 unit of convalescent plasma. 08/21/2020 Patient can use when 69 as follows although saturations are bit better his LDH is coming down inflammatory markers seem to be getting better. 08/22/2020 Patient chest x-ray episode significant infiltrate patient remains on 6 L frogs and along with as needed Ventimask. 08/23/2020 Patient clinical condition did not change much. Patient is being started on Toclizumab to my monoclonal antibody for IL-6 receptor. 08/24/2020 Patient feels marginally better, patient remains in the 50 L of oxygen today patient has IL-6 level that was elevated and patient is on monoclonal antibody for that. 08/25/2020 Patient feels bit better. Patient remains on 50 L of oxygen. Patient was started on gentle hydration patient is bit hyponatremic probably secondary to hypovolemia . 08/26 2020 patient remains on the 45 L of oxygen, IV normal saline.her serum creatinine remained stable continue with IV normal saline.completed treatment with Remdesivir, convalescent plasma and Toclizumab 08/27/2020 Patient remains on 45 L of oxygen Constitutional: Denied any fatigue denied any fever. Cardio vascular: denied any chest pain, palpitations Gastrointestinal denied any nausea vomiting Pulmonary: continuous to be short of breath Neurologic denied any new focal deficits All inpatient medications were reviewed and appropriate changes in these medications as dictated in the interval history and assessment and plan. Objective - Vital Signs Vital signs: Vital Signs Temp 97.8 F 08/27/20 12:00 Pulse 76 08/27/20 13:00 Resp 24 08/27/20 13:00 BP 147/92 08/27/20 13:00 Pulse Ox 88 L 08/27/20 13:00 Intake & Output 08/26/20 08/27/20 08/27/20 18:59 06:59 18:59 Intake Total 2200 1700 700 Output Total 730 426 9892 Balance 1400 900 -500 Weight 126.4 kg Intake: IV 1100 700 0.9 1100 700 Intake, IV Titration 1200 100 Amount Sodium Chloride 0.9% 1, 1200 100 000 ml @ 100 mls/hr IV . Q10H [facility] Rx#:[id number] Oral 1000 500 Output: Urine 868 [id number] [id number] Other: Voiding Method Urinal Urinal # Voids 1 # Bowel Movements 1 1 - Exam PHYSICAL EXAMINATION: GENERAL: The patient is alert and oriented x3, patient is not in respiratory distress on 60 L of oxygen. Well developed, well nourished. HEENT: Pupils are round and equally reacting to light. EOMI. No scleral icterus. No conjunctival pallor. Normocephalic, atraumatic. No pharyngeal erythema. No thyromegaly. CARDIOVASCULAR: S1 and S2 present. No murmurs, rubs, or gallops. PULMONARY: Chest is clear to auscultation, no wheezing or crackles. ABDOMEN: Soft, nontender, nondistended, normoactive bowel sounds. No palpable organomegaly. MUSCULOSKELETAL: No joint swelling or deformity. EXTREMITIES: No cyanosis, clubbing, or pedal edema. NEUROLOGICAL: Gross neurological examination did not reveal any focal deficits. SKIN: No rashes. Note: Because of COVID 19 isolation, some of the history and physical exam findings are indirect and obtained from nursing staff, and other physician examinations to avoid unnecessary contact with the patient. - Labs CBC & Chem 7: 08/27/20 03:22 08/27/20 03:22 Labs: Abnormal Lab Results - Last 24 Hours (Table) 08/27/20 08/27/20 Range/Units 03:22 03:22 WBC 16.7 H (3.8-10.6) k/uL RBC 4.23 L (4.30-5.90) m/uL Plt Count 585 H (150-450) k/uL Sodium 134 L (137-145) mmol/L Potassium 5.8 H (3.5-5.1) mmol/L Carbon Dioxide 33 H (22-30) mmol/L Glucose 131 H (74-99) mg/dL ALT 60 H (4-49) U/L Total Protein 5.9 L (6.3-8.2) g/dL Albumin 3.0 L (3.5-5.0) g/dL Assessment and Plan Plan: Acute COVID-19 viral pneumoniacan use oxygen support close monitoring if needed patient will be transferred to ICU [address] with Decadron 6 mg along with Lovenox 40 mg and patient is fourth day of Remdesivir . Although patient remains on 50 L of oxygen ration doesn't have significant improvement in his respiratory status.patient is on Toclizumab -possible hypovolemic hyponatremia: IV fluids in the monitor sodium. Acute hypoxic respiratory failure secondary to COVID-19 viral infection Sepsis Lactic acidosis resolved GERD History of GI bleed and gastric ulcer Hypertension DVT prophylaxis with Lovenox subcu
[2020-08-27] MEDS: ACETAMINOPHEN TAB 325 MG TAB PO PRN (17:39)
[2020-08-27] MEDS: ALPRAZolam 0.25 MG TAB PO PRN ×2 (17:40→22:51)
[2020-08-27] MEDS: MELATONIN 5 MG TABLET PO SCH (20:53)
[2020-08-27] MEDS: PROCHLORPERAZINE 5 MG TAB PO PRN (20:54)
[2020-08-28 05:09] LABS: Basophils # (A) 0.1 k/uL (0-0.2); Basophils % (A) 1 %; Eosinophils # (A) 0.2 k/uL (0-0.7); Eosinophils % (A) 2 %; HGB 13.2 gm/dL (13.0-17.5); Lymphocytes # (A) 2.8 k/uL (1.0-4.8); Lymphocytes % (A) 19 %; MCH 30.2 pg (25.0-35.0); MCHC 32.3 g/dL (31.0-37.0); MCV 93.4 fL (80.0-100.0); Mean Platelet Volume 7.4; Monocytes # (A) 1.7 k/uL (0-1.0); Monocytes % (A) 12 %; Neutrophils # (A) 9.2 k/uL (1.3-7.7); Neutrophils % (A) 64 %; Platelet Count 495 k/uL (150-450); RBC 4.39 m/uL (4.30-5.90); RDW 13.5 % (11.5-15.5); WBC 14.4 k/uL (3.8-10.6)
[2020-08-28 05:30] LABS: ALT 54 U/L (4-49); AST 38 U/L (17-59); African American GFR (CKD) >90 (>60 ml/min/1.73 sqM); Alkaline Phosphatase 86 U/L (38-126); Anion Gap 2 mmol/L; Blood Urea Nitrogen 16 mg/dL (9-20); C Reactive Protein 8.3 mg/L (<10.0); Calcium 8.9 mg/dL (8.4-10.2); Carbon Dioxide 35 mmol/L (22-30); Chloride 95 mmol/L (98-107); Glucose 89 mg/dL (74-99); LDH 901 U/L (313-618); Non-African American GFR(CKD) >90 (>60 ml/min/1.73 sqM); Potassium 5.7 mmol/L (3.5-5.1); Sodium 132 mmol/L (137-145); Total Bilirubin 0.4 mg/dL (0.2-1.3); Total Protein 5.7 g/dL (6.3-8.2)
[2020-08-28 05:37] LABS: D-Dimer 2.36 mg/L FEU (<0.60)
[2020-08-28] MEDS: SODIUM CHLORIDE 0.9% 1,000 ML IV SCH ×2 (06:45→09:09)
[2020-08-28] MEDS: ALBUTEROL HFA INHALER INHALATION SCH ×5 (08:10→20:44)
[2020-08-28] MEDS: SYMBICORT 160-4.5 MCG INHALER INHALATION SCH ×3 (08:11→20:44)
--- NOTE | 2020-08-28 08:22 | XR ---
EXAMINATION TYPE: XR chest 1V DATE OF EXAM: 08/28/2020 COMPARISON: Prior chest x-ray 08/26/2020 HISTORY: Pneumonia TECHNIQUE: Single frontal view of the chest is obtained. FINDINGS: Question some worsening airspace disease bilaterally. No evident pneumothorax or pleural e ffusion. Heart is obscured. IMPRESSION: Findings consistent with patient's history of pneumonia
[2020-08-28] MEDS: ENOXAPARIN 60 MG/0.6 ML SYRINGE SQ SCH ×2 (08:25→21:12)
[2020-08-28] MEDS: ALPRAZolam 0.25 MG TAB PO PRN ×2 (08:26→21:12)
[2020-08-28] MEDS: FAMOTIDINE 20 MG TAB PO SCH ×2 (08:26→21:12)
[2020-08-28] MEDS: SENNOSIDES 8.6 MG TAB PO SCH ×2 (08:26→21:13)
[2020-08-28] MEDS: ONDANSETRON 4 MG/2 ML VIAL IVP PRN ×2 (08:26→21:12)
[2020-08-28] MEDS: ASCORBIC ACID 500 MG TAB PO SCH (08:26)
[2020-08-28] MEDS: DULoxetine HCL 60 MG CAPSULE.DR PO SCH (08:26)
[2020-08-28] MEDS: CHOLECALCIFEROL 1,000 UNIT TAB PO SCH (08:26)
[2020-08-28] MEDS: amLODIPine 5 MG TAB PO SCH (08:26)
[2020-08-28] MEDS: ZINC SULFATE 220 MG CAP PO SCH (08:26)
[2020-08-28] MEDS ORDERED: predniSONE 20 MG TAB PO SCH (09:00)
--- NOTE | 2020-08-28 13:22 | P.PN ---
Subjective Acute COVID-19 viral pneumonia Patient is a 50-year-old male with a known history of hypertension, GERD, lower GI bleed, right shoulder injury/pain presents to ER with complaints of generalized weakness and body aches and fever and chills and worsening shortness of breath for the past 4 days. Patient was seen at his PCPs office yesterday and tested for COVID-19 which came out positive. Patient states that he developed shortness of breath this morning and his pulse ox was 88% on room air. Patient presented to ER for evaluation. 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 No complaints of chest pain. No nausea vomiting or abdominal pain or diarrhea. Denied any loss of smell. Patient did have headache this morning. Currently denies any headache. Chest x-ray showed bilateral pneumonia. EKG showed normal sinus rhythm Laboratory data showed lymphocyte count 0.7, WBC 9.3, D-dimer 0.38 Bicarb is 35 Lactic acid 2.6 Magnesium 1.7, ferritin 1161, AST 71 ALT 50 and LDH 1093 and CRP 142 Procalcitonin 0.24 08/16/2020 Patient is currently resting in bed comfortably. No complaints of chest pain or worsening shortness of breath. No acute distress. Awake alert when x3. Pat ient is currently requiring oxygen 5 L via nasal cannula. Patient has been febrile with T-max 101.7 Laboratory reviewed. Chest x-ray showed consistent with bilateral pneumonia. Currently being treated dexamethasone, Lovenox and remdesivir. Patient is also on antibiotics in the form of azithromycin. Pulmonary is on board. 08/17/2020 Patient is awake alert oriented x3. Still requiring oxygen at 5 L via nasal cannula. T-max is 99.2 patient has been afebrile currently. No nausea vomiting or abdominal pain or diarrhea. Chest x-ray showed limited exam demonstrates multifocal airspace disease correlate for pneumonia. Patient is being continued on remdesivir day 3. 08/18/2020 Patient respiratory status appears to be worsening and patient is presently on 10 L of oxygen patient will be closely monitored and the patient continues to be on Decadron and did receive remdesivir and plasma.patient doesn't appear to be doing well at this time. Still short of breath on 10 L of oxygen and saturating atlow 90s and patient is presently on Lovenox 40 mg subcutaneous. D-dimer is 0.74, chest x-ray continues to show significant bilateral infiltrate. 08/19/2020 Patient respiratory status has worsened patient remains on Decadron and the patient was transferred to ICU presently on FiO2 of 50% and flow of around 60 L per minute. Patient is not in respiratory distress. 08/20/2020 Patient remains on airvo , 60 L of oxygenchest x-ray showing diffuse interstitial infiltrates, LDH and other included markers are bit worse compared to yesterday. Finished course of remdesivir, received 1 unit of convalescent plasma. 08/21/2020 Patient can use when 69 as follows although saturations are bit better his LDH is coming down inflammatory markers seem to be getting better. 08/22/2020 Patient chest x-ray episode significant infiltrate patient remains on 6 L frogs and along with as needed Ventimask. 08/23/2020 Patient clinical condition did not change much. Patient is being started on Toclizumab to my monoclonal antibody for IL-6 receptor. 08/24/2020 Patient feels marginally better, patient remains in the 50 L of oxygen today patient has IL-6 level that was elevated and patient is on monoclonal antibody for that. 08/25/2020 Patient feels bit better. Patient remains on 50 L of oxygen. Patient was started on gentle hydration patient is bit hyponatremic probably secondary to hypovolemia . 08/26 2020 patient remains on the 45 L of oxygen, IV normal saline.her serum creatinine remained stable continue with IV normal saline.completed treatment with Remdesivir, convalescent plasma and Toclizumab 08/27/2020 Patient remains on 45 L of oxygen 08/28/2020 Patient's potassium is elevated serum sodium is 132. Constitutional: Denied any fatigue denied any fever. Cardio vascular: denied any chest pain, palpitations Gastrointestinal denied any nausea vomiting Pulmonary: continuous to be short of breath Neurologic denied any new focal deficits All inpatient medications were reviewed and appropriate changes in these medications as dictated in the interval history and assessment and plan. Objective - Vital Signs Vital signs: Vital Signs Temp 98.1 F 08/28/20 12:00 Pulse 89 08/28/20 13:00 Resp 22 08/28/20 13:00 BP 126/75 08/28/20 13:00 Pulse Ox 86 L 08/28/20 13:00 Intake & Output 08/27/20 08/28/20 08/28/20 18:59 06:59 18:59 Intake Total 1200 1200 620 Output Total 1500 1300 400 Balance -300 -100 220 Weight 131.2 kg Intake: IV 1200 1200 120 0.9 1200 1200 120 Intake, IV Titration 100 Amount Sodium Chloride 0.9% 1, 100 000 ml @ 20 mls/hr IV . Q24H [facility] Rx#:[id number] Oral 400 Output: Urine 1500 1300 400 Other: Voiding Method Urinal Urinal Urinal # Bowel Movements 1 - Exam PHYSICAL EXAMINATION: GENERAL: The patient is alert and oriented x3, patient is not in respiratory distress on 60 L of oxygen. Well developed, well nourished. HEENT: Pupils are round and equally reacting to light. EOMI. No scleral icterus. No conjunctival pallor. Normocephalic, atraumatic. No pharyngeal erythema. No thyromegaly. CARDIOVASCULAR: S1 and S2 present. No murmurs, rubs, or gallops. PULMONARY: Chest is clear to auscultation, no wheezing or crackles. ABDOMEN: Soft, nontender, nondistended, normoactive bowel sounds. No palpable organomegaly. MUSCULOSKELETAL: No joint swelling or deformity. EXTREMITIES: No cyanosis, clubbing, or pedal edema. NEUROLOGICAL: Gross neurological examination did not reveal any focal deficits. SKIN: No rashes. Note: Because of COVID 19 isolation, some of the history and physical exam findings are indirect and obtained from nursing staff, and other physician examinations to avoid unnecessary contact with the patient. - Labs CBC & Chem 7: 08/28/20 03:49 08/28/20 03:49 Labs: Abnormal Lab Results - Last 24 Hours (Table) 08/28/20 08/28/20 08/28/20 Range/Units 03:49 03:49 03:49 WBC 14.4 H (3.8-10.6) k/uL Plt Count 495 H (150-450) k/uL Neutrophils # 9.2 H (1.3-7.7) k/uL Monocytes # 1.7 H (0-1.0) k/uL D-Dimer 2.36 H (<0.60) mg/L FEU Sodium 132 L (137-145) mmol/L Potassium 5.7 H (3.5-5.1) mmol/L Chloride 95 L (98-107) mmol/L Carbon Dioxide 35 H (22-30) mmol/L ALT 54 H (4-49) U/L Lactate Dehydrogenase 901 H (313-618) U/L Total Protein 5.7 L (6.3-8.2) g/dL Albumin 3.0 L (3.5-5.0) g/dL Assessment and Plan Plan: Acute COVID-19 viral pneumoniacan use oxygen support close monitoring if needed patient will be transferred to ICU [address] with Decadron 6 mg along with Lovenox 40 mg and patient is fourth day of Remdesivir . Although patient remains on 45 L of oxygen ration doesn't have significant improvement in his respiratory status.patient is on Toclizumab -possible hypovolemic hyponatremia: IV fluids in the monitor sodium. Acute hypoxic respiratory failure secondary to COVID-19 viral infection Sepsis Lactic acidosis resolved GERD History of GI bleed and gastric ulcer Hypertension DVT prophylaxis with Lovenox subcu
--- NOTE | 2020-08-28 15:57 | P.PN ---
Subjective Progress Note Date: 08/28/20 This is a 50-year-old male patient who was admitted on 08/15/2024 hypoxic respiratory failure that was attributed to COVID 19 pneumonia . The patient progressively became more hypoxic, the patient got transferred to the intensive care units. The patient had impending respiratory failure and the patient was treated high flow oxygen which is currently being utilized at 55 L per minute and an FiO2 of 80%. The patient during his course of treatment has received convalescent plasma 2, Tocilizum and Remdesivir. . He also has received other supportive measures including a combination of Decadron, Pepcid, melatonin, vitamin C, vitamin D and zinc. He has done slow if any progress over the past few days. He remains in intensive care units. Chest x-ray remains unchanged with diffuse bilateral pulmonary infiltrates consistent with Covid 19 pneumonia. The white cell count is down to 14.4 The d-dimer was at 2.36 max blood work is showing a component of metabolic alkalosis with a serum bicarbonate above 30. Potassium level from yesterday was at 5. 7. The patient is on Lovenox 60 mg subcu every 12 hours. He is on Symbicort 160/4.52 puffs twice a day. He is also receiving albuterol HFA 4 times a day [id number]. IV fluids at the rate of 100 mL an hour. He reports that his condition is stable for now. There is no worsening shortness of breath a chest x-ray findings shows a stable by the pulmonary infiltrates per no interval change compared to yesterday. Objective - Vital Signs Vital signs: Vital Signs Temp 98.1 F 08/28/20 12:00 Pulse 107 H 08/28/20 15:00 Resp 22 08/28/20 15:00 BP 134/69 08/28/20 15:00 Pulse Ox 91 L 08/28/20 15:00 Intake & Output 08/27/20 08/28/20 08/28/20 18:59 06:59 18:59 Intake Total 1200 1200 810 Output Total 1500 1300 850 Balance -300 -100 -40 Weight 131.2 kg Intake: IV 1200 1200 120 0.9 1200 1200 120 Intake, IV Titration 140 Amount Sodium Chloride 0.9% 1, 140 000 ml @ 20 mls/hr IV . Q24H [facility] Rx#:[id number] Oral 550 Output: Urine 1500 1300 850 Other: Voiding Method Urinal Urinal Urinal # Bowel Movements 1 - Exam Gen. appearance The patient Gen. appearance is mild degree of respiratory distress and the patient is mildly tachypneic. He remains on high flow oxygen through nasal cannula. Head exam was generally normal. There was no scleral icterus or corneal arcus. Mucous membranes were moist. Neck was supple and without jugular venous distension, thyromegaly, or carotid bruits. Carotids were easily palpable bilaterally. There was no adenopathy. Lungs sounds reveals crackles in the lung bases bilaterally. Otherwise breath sounds are diminished yet there and symmetrical. Cardiac exam revealed the PMI to be normally situated and sized. The rhythm was regular and no extrasystoles were noted during several minutes of auscultation. The first and second heart sounds were normal and physiologic splitting of the second heart sound was noted. There were no murmurs, rubs, clicks, or gallops. Abdominal exam revealed normal bowel sounds. The abdomen was soft, non-tender, and without masses, organomegaly, or appreciable enlargement of the abdominal aorta. Examination of the extremities revealed easily palpable radial, femoral and pedal pulses. There was no cyanosis, clubbing or edema. Examination of the skin revealed no evidence of significant rashes, suspicious appearing nevi or other concerning lesions. Neurologically, the patient is awake and alert and the patient does not have any focal neurological deficit. Cranial nerves are essentially intact. - Labs CBC & Chem 7: 08/28/20 03:49 08/28/20 03:49 Labs: Abnormal Lab Results - Last 24 Hours (Table) 08/28/20 08/28/20 08/28/20 Range/Units 03:49 03:49 03:49 WBC 14.4 H (3.8-10.6) k/uL Plt Count 495 H (150-450) k/uL Neutrophils # 9.2 H (1.3-7.7) k/uL Monocytes # 1.7 H (0-1.0) k/uL D-Dimer 2.36 H (<0.60) mg/L FEU Sodium 132 L (137-145) mmol/L Potassium 5.7 H (3.5-5.1) mmol/L Chloride 95 L (98-107) mmol/L Carbon Dioxide 35 H (22-30) mmol/L ALT 54 H (4-49) U/L Lactate Dehydrogenase 901 H (313-618) U/L Total Protein 5.7 L (6.3-8.2) g/dL Albumin 3.0 L (3.5-5.0) g/dL Assessment and Plan Plan: 1 Acute COVID-19 viral pneumonia, treated with Decadron 6 mg along and the patient completed a 5 day course of Remdesivir , also received 2 doses of convalescent plasma and Toclizumab. The patient remains on 55 L of oxygen ration doesn't have significant improvement in his respiratory status. His chest x-ray findings are essentially stable. 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 2 Acute hypoxic respiratory failure secondary to COVID-19 viral infection 3 Lactic acidosis resolved 4 GERD 5 History of GI bleed and gastric ulcer 6 Hypertension 7 metabolic alkalosis 8 leukocytosis , improving 9 hyperlipidemia and the patient was taken off MARK inhibitor Plan Continue high flow oxygen for respiratory support Kept on IV fluids to KVO Started patient on by mouth prednisone 40 mg by mouth daily on a daily basis Lovenox 60 mg subcu twice a day Continue the rest of the supportive care Condition is still critically the patient will be kept in ICU for another 24 hours.
[2020-08-28] MEDS: MELATONIN 5 MG TABLET PO SCH (21:13)
[2020-08-29] MEDS: ALPRAZolam 0.25 MG TAB PO PRN ×3 (03:03→20:26)
[2020-08-29] MEDS: ONDANSETRON 4 MG/2 ML VIAL IVP PRN ×3 (03:03→20:25)
[2020-08-29 04:53] LABS: Basophils # (A) 0.3 k/uL (0-0.2); Basophils % (A) 1 %; Eosinophils # (A) 0.2 k/uL (0-0.7); Eosinophils % (A) 1 %; HCT 40.2 % (39.0-53.0); HGB 13.2 gm/dL (13.0-17.5); Lymphocytes # (A) 2.4 k/uL (1.0-4.8); Lymphocytes % (A) 11 %; MCH 30.8 pg (25.0-35.0); MCHC 32.9 g/dL (31.0-37.0); MCV 93.9 fL (80.0-100.0); Monocytes # (A) 1.7 k/uL (0-1.0); Monocytes % (A) 8 %; Neutrophils # (A) 16.7 k/uL (1.3-7.7); Neutrophils % (A) 77 %; Platelet Count 472 k/uL (150-450); RBC 4.28 m/uL (4.30-5.90); WBC 21.6 k/uL (3.8-10.6)
[2020-08-29 05:14] LABS: ALT 42 U/L (4-49); AST 34 U/L (17-59); African American GFR (CKD) >90 (>60 ml/min/1.73 sqM); Albumin 3.3 g/dL (3.5-5.0); Alkaline Phosphatase 133 U/L (38-126); Anion Gap 3 mmol/L; Blood Urea Nitrogen 17 mg/dL (9-20); C Reactive Protein 6.7 mg/L (<10.0); Carbon Dioxide 35 mmol/L (22-30); Chloride 94 mmol/L (98-107); Glucose 126 mg/dL (74-99); LDH 971 U/L (313-618); Non-African American GFR(CKD) >90 (>60 ml/min/1.73 sqM); Potassium 5.3 mmol/L (3.5-5.1); Sodium 132 mmol/L (137-145); Total Bilirubin 0.4 mg/dL (0.2-1.3); Total Protein 6.1 g/dL (6.3-8.2)
[2020-08-29 05:37] LABS: D-Dimer 1.99 mg/L FEU (<0.60)
[2020-08-29] MEDS: ALBUTEROL HFA INHALER INHALATION SCH ×4 (08:13→20:52)
[2020-08-29] MEDS: SYMBICORT 160-4.5 MCG INHALER INHALATION SCH ×2 (08:14→20:52)
--- NOTE | 2020-08-29 08:43 | XR ---
EXAMINATION TYPE: XR chest 1V DATE OF EXAM: 08/29/2020 COMPARISON: 08/28/2020 HISTORY: Cough TECHNIQUE: Single frontal view of the chest is obtained. FINDINGS: Diffuse bilateral multifocal infiltrates are stable. No pneumothorax. Reduced inspiration. Heart size stable. No sizable pleural effusion. IMPRESSION: Multifocal infiltrates are stable
[2020-08-29] MEDS ORDERED: FUROSEMIDE 10 MG/ML 4 ML VIAL IV STA (08:52)
[2020-08-29] MEDS: methylPREDNISolone SOD SUCCI 125 MG/2 ML VIAL IV SCH ×3 (09:31→23:02)
[2020-08-29] MEDS: ASCORBIC ACID 500 MG TAB PO SCH (09:32)
[2020-08-29] MEDS: amLODIPine 5 MG TAB PO SCH (09:32)
[2020-08-29] MEDS: CHOLECALCIFEROL 1,000 UNIT TAB PO SCH (09:34)
[2020-08-29] MEDS: ENOXAPARIN 60 MG/0.6 ML SYRINGE SQ SCH ×2 (09:34→20:03)
[2020-08-29] MEDS: DULoxetine HCL 60 MG CAPSULE.DR PO SCH (09:34)
[2020-08-29] MEDS: FAMOTIDINE 20 MG TAB PO SCH ×2 (09:34→20:03)
[2020-08-29] MEDS: ZINC SULFATE 220 MG CAP PO SCH (09:35)
[2020-08-29] MEDS: SENNOSIDES 8.6 MG TAB PO SCH ×2 (09:35→20:03)
[2020-08-29] MEDS: SODIUM CHLORIDE 0.9% 1,000 ML IV SCH (11:45)
--- NOTE | 2020-08-29 15:26 | P.PN ---
Subjective Progress Note Date: 08/29/20 This is a 50-year-old male patient who was admitted on 08/15/2024 hypoxic respiratory failure that was attributed to COVID 19 pneumonia . The patient progressively became more hypoxic, the patient got transferred to the intensive care units. The patient had impending respiratory failure and the patient was treated high flow oxygen which is currently being utilized at 55 L per minute and an FiO2 of 80%. The patient during his course of treatment has received convalescent plasma 2, Tocilizum and Remdesivir. . He also has received other supportive measures including a combination of Decadron, Pepcid, melatonin, vitamin C, vitamin D and zinc. He has done slow if any progress over the past few days. He remains in intensive care units. Chest x-ray remains unchanged with diffuse bilateral pulmonary infiltrates consistent with Covid 19 pneumonia. The white cell count is down to 14.4 The d-dimer was at 2.36 max blood work is showing a component of metabolic alkalosis with a serum bicarbonate above 30. Potassium level from yesterday was at 5. 7. The patient is on Lovenox 60 mg subcu every 12 hours. He is on Symbicort 160/4.52 puffs twice a day. He is also receiving albuterol HFA 4 times a day [id number]. IV fluids at the rate of 100 mL an hour. He reports that his condition is stable for now. There is no worsening shortness of breath a chest x-ray findings shows a stable by the pulmonary infiltrates per no interval change compared to yesterday. On today's evaluation of 08/19/2020, the patient is doing essentially the same compared to yesterday. He has very limited reserve and the patient desaturates easily with minimal amount of activity. I have a high flow oxygen at 55 L with an FiO2 of 80%. The patient's pulse is ranging between 80% and 91%. He is afebrile. He is having increased edema lower extremities bilaterally. He is on IV fluids at KVO at 20 she is an hour. Utilizing incentive spirometer and pulling approximately 1000 on his incentive spirometer.. I started him on prednisone yesterday and I think I'm going to transition to IV Solu-Medrol. Chest x-ray findings and essentially unchanged. The patient continues to be hemodynamically stable and alert and awake. Is feeling a bit weak and discouraged because of the prolonged course of the symptoms. He is tolerating diet. He is still in the intensive care units. Objective - Vital Signs Vital signs: Vital Signs Temp 98.0 F 08/29/20 08:00 Pulse 78 08/29/20 08:00 Resp 22 08/29/20 08:00 BP 113/69 08/29/20 08:00 Pulse Ox 83 L 08/29/20 08:00 Intake & Output 08/28/20 08/29/20 08/29/20 18:59 06:59 18:59 Intake Total 870 720 140 Output Total 1400 750 450 Balance -530 -30 -310 Weight 132.3 kg Intake: IV 120 200 40 0.9 120 200 40 Intake, IV Titration 200 20 Amount Sodium Chloride 0.9% 1, 200 20 000 ml @ 20 mls/hr IV . Q24H [facility] Rx#:[id number] Oral 550 500 100 Output: Urine 1400 750 450 Other: Voiding Method Urinal Urinal Urinal - Exam The patient Gen. appearance is mild degree of respiratory distress and the patient is mildly tachypneic. He remains on high flow oxygen through nasal cannula. Head exam was generally normal. There was no scleral icterus or corneal arcus. Mucous membranes were moist. Neck was supple and without jugular venous distension, thyromegaly, or carotid bruits. Carotids were easily palpable bilaterally. There was no adenopathy. Lungs sounds reveals crackles in the lung bases bilaterally. Otherwise breath sounds are diminished yet there and symmetrical. Cardiac exam revealed the PMI to be normally situated and sized. The rhythm was regular and no extrasystoles were noted during several minutes of auscultation. The first and second heart sounds were normal and physiologic splitting of the second heart sound was noted. There were no murmurs, rubs, clicks, or gallops. Abdominal exam revealed normal bowel sounds. The abdomen was soft, non-tender, and without masses, organomegaly, or appreciable enlargement of the abdominal aorta. Examination of the extremities revealed easily palpable radial, femoral and pedal pulses. There was no cyanosis, clubbing or edema. Examination of the skin revealed no evidence of significant rashes, suspicious appearing nevi or other concerning lesions. Neurologically, the patient is awake and alert and the patient does not have any focal neurological deficit. Cranial nerves are essentially intact. - Labs CBC & Chem 7: 11/17/20 03:57 08/29/20 03:57 Labs: Abnormal Lab Results - Last 24 Hours (Table) 08/29/20 08/29/20 08/29/20 Range/Units 03:57 03:57 03:57 WBC 21.6 H (3.8-10.6) k/uL RBC 4.28 L (4.30-5.90) m/uL Plt Count 472 H (150-450) k/uL Neutrophils # 16.7 H (1.3-7.7) k/uL Monocytes # 1.7 H (0-1.0) k/uL Basophils # 0.3 H (0-0.2) k/uL D-Dimer 1.99 H (<0.60) mg/L FEU Sodium 132 L (137-145) mmol/L Potassium 5.3 H (3.5-5.1) mmol/L Chloride 94 L (98-107) mmol/L Carbon Dioxide 35 H (22-30) mmol/L Glucose 126 H (74-99) mg/dL Alkaline Phosphatase 133 H (38-126) U/L Lactate Dehydrogenase 971 H (313-618) U/L Total Protein 6.1 L (6.3-8.2) g/dL Albumin 3.3 L (3.5-5.0) g/dL Assessment and Plan Plan: 1 Acute COVID-19 viral pneumonia, treated with Decadron , completed a 5 day course of Remdesivir , also received 2 doses of convalescent plasma and Toclizumab. The patient remains on 85 L of oxygen without significant improvement in his respiratory status. His chest x-ray findings are essentially stable. 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 2 Acute hypoxic respiratory failure secondary to COVID-19 viral infection 3 Lactic acidosis resolved 4 GERD 5 History of GI bleed and gastric ulcer 6 Hypertension 7 metabolic alkalosis 8 leukocytosis , improving 9 hyperlipidemia and the patient was taken off MARK inhibitor Plan Continue high flow oxygen for respiratory support Kept on IV fluids to KVO Give the patient on the Lasix 40 mg IV push Stop the prednisone put the patient IV Solu Medrol 60 mg every 8 hours Lovenox 60 mg subcu twice a day Continue the rest of the supportive care Minimal or no progress over the past 24-48 hours and the condition remains unchanged. Condition is still critically the patient will be kept in ICU for another 24 hours.
[2020-08-29] MEDS: PROCHLORPERAZINE 5 MG TAB PO PRN (15:30)
--- NOTE | 2020-08-29 15:34 | P.PN ---
Subjective Acute COVID-19 viral pneumonia Patient is a 50-year-old male with a known history of hypertension, GERD, lower GI bleed, right shoulder injury/pain presents to ER with complaints of generalized weakness and body aches and fever and chills and worsening shortness of breath for the past 4 days. Patient was seen at his PCPs office yesterday and tested for COVID-19 which came out positive. Patient states that he developed shortness of breath this morning and his pulse ox was 88% on room air. Patient presented to ER for evaluation. 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 No complaints of chest pain. No nausea vomiting or abdominal pain or diarrhea. Denied any loss of smell. Patient did have headache this morning. Currently denies any headache. Chest x-ray showed bilateral pneumonia. EKG showed normal sinus rhythm Laboratory data showed lymphocyte count 0.7, WBC 9.3, D-dimer 0.38 Bicarb is 35 Lactic acid 2.6 Magnesium 1.7, ferritin 1161, AST 71 ALT 50 and LDH 1093 and CRP 142 Procalcitonin 0.24 08/16/2020 Patient is currently resting in bed comfortably. No complaints of chest pain or worsening shortness of breath. No acute distress. Awake alert when x3. Pat ient is currently requiring oxygen 5 L via nasal cannula. Patient has been febrile with T-max 101.7 Laboratory reviewed. Chest x-ray showed consistent with bilateral pneumonia. Currently being treated dexamethasone, Lovenox and remdesivir. Patient is also on antibiotics in the form of azithromycin. Pulmonary is on board. 08/17/2020 Patient is awake alert oriented x3. Still requiring oxygen at 5 L via nasal cannula. T-max is 99.2 patient has been afebrile currently. No nausea vomiting or abdominal pain or diarrhea. Chest x-ray showed limited exam demonstrates multifocal airspace disease correlate for pneumonia. Patient is being continued on remdesivir day 3. 08/18/2020 Patient respiratory status appears to be worsening and patient is presently on 10 L of oxygen patient will be closely monitored and the patient continues to be on Decadron and did receive remdesivir and plasma.patient doesn't appear to be doing well at this time. Still short of breath on 10 L of oxygen and saturating atlow 90s and patient is presently on Lovenox 40 mg subcutaneous. D-dimer is 0.74, chest x-ray continues to show significant bilateral infiltrate. 08/19/2020 Patient respiratory status has worsened patient remains on Decadron and the patient was transferred to ICU presently on FiO2 of 50% and flow of around 60 L per minute. Patient is not in respiratory distress. 08/20/2020 Patient remains on airvo , 60 L of oxygenchest x-ray showing diffuse interstitial infiltrates, LDH and other included markers are bit worse compared to yesterday. Finished course of remdesivir, received 1 unit of convalescent plasma. 08/21/2020 Patient can use when 69 as follows although saturations are bit better his LDH is coming down inflammatory markers seem to be getting better. 08/22/2020 Patient chest x-ray episode significant infiltrate patient remains on 6 L frogs and along with as needed Ventimask. 08/23/2020 Patient clinical condition did not change much. Patient is being started on Toclizumab to my monoclonal antibody for IL-6 receptor. 08/24/2020 Patient feels marginally better, patient remains in the 50 L of oxygen today patient has IL-6 level that was elevated and patient is on monoclonal antibody for that. 08/25/2020 Patient feels bit better. Patient remains on 50 L of oxygen. Patient was started on gentle hydration patient is bit hyponatremic probably secondary to hypovolemia . 08/26 2020 patient remains on the 45 L of oxygen, IV normal saline.her serum creatinine remained stable continue with IV normal saline.completed treatment with Remdesivir, convalescent plasma and Toclizumab 08/27/2020 Patient remains on 45 L of oxygen 08/28/2020 Patient's potassium is elevated serum sodium is 132. 08/29/2020 Patient's overall clinical condition is bit worse today and patient is presently on 55 L of oxygen. Patient is being started on Solu-Medrol Constitutional: Denied any fatigue denied any fever. Cardio vascular: denied any chest pain, palpitations Gastrointestinal denied any nausea vomiting Pulmonary: continuous to be short of breath Neurologic denied any new focal deficits All inpatient medications were reviewed and appropriate changes in these medications as dictated in the interval history and assessment and plan. Objective - Vital Signs Vital signs: Vital Signs Temp 97.7 F 08/29/20 12:00 Pulse 96 08/29/20 15:00 Resp 22 08/29/20 15:00 BP 116/73 08/29/20 15:00 Pulse Ox 88 L 08/29/20 15:00 Intake & Output 08/28/20 08/29/20 08/29/20 18:59 06:59 18:59 Intake Total 870 720 780 Output Total 9866 790 8578 Balance - Weight 132.3 kg Intake: IV 120 200 180 0.9 120 200 180 Intake, IV Titration 200 20 Amount Sodium Chloride 0.9% 1, 200 20 000 ml @ 20 mls/hr IV . Q24H [facility] Rx#:[id number] Oral 550 500 600 Output: Urine 1117 914 [id number] Other: Voiding Method Urinal Urinal Urinal - Exam PHYSICAL EXAMINATION: GENERAL: The patient is alert and oriented x3, patient is not in respiratory distress on 60 L of oxygen. Well developed, well nourished. HEENT: Pupils are round and equally reacting to light. EOMI. No scleral icterus. No conjunctival pallor. Normocephalic, atraumatic. No pharyngeal erythema. No thyromegaly. CARDIOVASCULAR: S1 and S2 present. No murmurs, rubs, or gallops. PULMONARY: Chest is clear to auscultation, no wheezing or crackles. ABDOMEN: Soft, nontender, nondistended, normoactive bowel sounds. No palpable organomegaly. MUSCULOSKELETAL: No joint swelling or deformity. EXTREMITIES: No cyanosis, clubbing, or pedal edema. NEUROLOGICAL: Gross neurological examination did not reveal any focal deficits. SKIN: No rashes. Note: Because of COVID 19 isolation, some of the history and physical exam findings are indirect and obtained from nursing staff, and other physician examinations to avoid unnecessary contact with the patient. - Labs CBC & Chem 7: 08/29/20 03:57 08/29/20 03:57 Labs: Abnormal Lab Results - Last 24 Hours (Table) 08/29/20 08/29/20 08/29/20 Range/Units 03:57 03:57 03:57 WBC 21.6 H (3.8-10.6) k/uL RBC 4.28 L (4.30-5.90) m/uL Plt Count 472 H (150-450) k/uL Neutrophils # 16.7 H (1.3-7.7) k/uL Monocytes # 1.7 H (0-1.0) k/uL Basophils # 0.3 H (0-0.2) k/uL D-Dimer 1.99 H (<0.60) mg/L FEU Sodium 132 L (137-145) mmol/L Potassium 5.3 H (3.5-5.1) mmol/L Chloride 94 L (98-107) mmol/L Carbon Dioxide 35 H (22-30) mmol/L Glucose 126 H (74-99) mg/dL Alkaline Phosphatase 133 H (38-126) U/L Lactate Dehydrogenase 971 H (313-618) U/L Total Protein 6.1 L (6.3-8.2) g/dL Albumin 3.3 L (3.5-5.0) g/dL Assessment and Plan Plan: Acute COVID-19 viral pneumoniacan use oxygen support close monitoring if needed. Patient is presently on 55 L of oxygen completed Decadron 6 mg on Lovenox 40 mg and patient had 4 days of Remdesivir . Although patient remains on 45 L of oxygen ration doesn't have significant improvement in his respiratory status.patient needed therapy with Toclizumab patient is presently on IV steroids -possible hypovolemic hyponatremia: IV fluids in the monitor sodium. Acute hypoxic respiratory failure secondary to COVID-19 viral infection Sepsis Lactic acidosis resolved GERD History of GI bleed and gastric ulcer Hypertension DVT prophylaxis with Lovenox subcu
[2020-08-29] MEDS: MELATONIN 5 MG TABLET PO SCH (20:03)
[2020-08-29 20:05] LABS: LD Isoenzymes 1 17 % (19-38); LD Isoenzymes 2 34 % (30-43); LD Isoenzymes 3 20 % (16-26); LD Isoenzymes 4 10 % (3-12); LD Isoenzymes 5 19 % (3-14); Lactacte Dehydrogenase(LD) ISO 322 U/L (100-220)
[2020-08-29 20:06] LABS: LD Isoenzymes 1 18 % (19-38); LD Isoenzymes 2 35 % (30-43); LD Isoenzymes 3 22 % (16-26); LD Isoenzymes 4 10 % (3-12); LD Isoenzymes 5 15 % (3-14); Lactacte Dehydrogenase(LD) ISO 295 U/L (100-220)
[2020-08-30 03:51] LABS: African American GFR (CKD) >90 (>60 ml/min/1.73 sqM); Anion Gap 4 mmol/L; Blood Urea Nitrogen 19 mg/dL (9-20); C Reactive Protein <5.0 mg/L (<10.0); Calcium 9.5 mg/dL (8.4-10.2); Carbon Dioxide 34 mmol/L (22-30); Chloride 92 mmol/L (98-107); Glucose 187 mg/dL (74-99); LDH 1196 U/L (313-618); Non-African American GFR(CKD) >90 (>60 ml/min/1.73 sqM); Sodium 130 mmol/L (137-145)
[2020-08-30 03:56] LABS: Basophils # (A) 0.3 k/uL (0-0.2); Basophils % (A) 1 %; D-Dimer 1.42 mg/L FEU (<0.60); Eosinophils # (A) 0.1 k/uL (0-0.7); Eosinophils % (A) 0 %; HCT 40.6 % (39.0-53.0); HGB 13.8 gm/dL (13.0-17.5); Lymphocytes # (A) 1.4 k/uL (1.0-4.8); Lymphocytes % (A) 5 %; MCH 31.9 pg (25.0-35.0); MCHC 33.9 g/dL (31.0-37.0); MCV 93.9 fL (80.0-100.0); Mean Platelet Volume 7.2; Monocytes # (A) 0.9 k/uL (0-1.0); Monocytes % (A) 3 %; Neutrophils # (A) 26.7 k/uL (1.3-7.7); Neutrophils % (A) 91 %; Platelet Count 465 k/uL (150-450); RBC 4.32 m/uL (4.30-5.90); RDW 13.3 % (11.5-15.5); WBC 29.5 k/uL (3.8-10.6)
[2020-08-30] MEDS: ONDANSETRON 4 MG/2 ML VIAL IVP PRN ×3 (05:00→20:48)
[2020-08-30] MEDS: ALPRAZolam 0.25 MG TAB PO PRN ×3 (05:02→20:20)
[2020-08-30] MEDS: ALBUTEROL HFA INHALER INHALATION SCH ×4 (07:41→19:31)
[2020-08-30] MEDS: SYMBICORT 160-4.5 MCG INHALER INHALATION SCH ×2 (07:41→19:31)
[2020-08-30] MEDS: ENOXAPARIN 60 MG/0.6 ML SYRINGE SQ SCH ×2 (09:03→20:21)
[2020-08-30] MEDS: methylPREDNISolone SOD SUCCI 125 MG/2 ML VIAL IV SCH ×2 (09:03→15:05)
[2020-08-30] MEDS: DULoxetine HCL 60 MG CAPSULE.DR PO SCH (09:03)
[2020-08-30] MEDS: FAMOTIDINE 20 MG TAB PO SCH ×2 (09:03→20:20)
[2020-08-30] MEDS: SENNOSIDES 8.6 MG TAB PO SCH ×2 (09:03→20:20)
[2020-08-30] MEDS: CHOLECALCIFEROL 1,000 UNIT TAB PO SCH (09:03)
[2020-08-30] MEDS: ZINC SULFATE 220 MG CAP PO SCH (09:03)
[2020-08-30] MEDS: amLODIPine 5 MG TAB PO SCH (09:03)
[2020-08-30] MEDS: ASCORBIC ACID 500 MG TAB PO SCH (09:03)
[2020-08-30 09:26] LABS: Ferritin 440.4 ng/mL (22.0-322.0)
[2020-08-30] MEDS ORDERED: FUROSEMIDE 10 MG/ML 4 ML VIAL IV STA (09:56)
[2020-08-30] MEDS: SODIUM CHLORIDE 0.9% 1,000 ML IV SCH (13:48)
--- NOTE | 2020-08-30 14:43 | P.PN ---
Subjective Acute COVID-19 viral pneumonia Patient is a 50-year-old male with a known history of hypertension, GERD, lower GI bleed, right shoulder injury/pain presents to ER with complaints of generalized weakness and body aches and fever and chills and worsening shortness of breath for the past 4 days. Patient was seen at his PCPs office yesterday and tested for COVID-19 which came out positive. Patient states that he developed shortness of breath this morning and his pulse ox was 88% on room air. Patient presented to ER for evaluation. 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 No complaints of chest pain. No nausea vomiting or abdominal pain or diarrhea. Denied any loss of smell. Patient did have headache this morning. Currently denies any headache. Chest x-ray showed bilateral pneumonia. EKG showed normal sinus rhythm Laboratory data showed lymphocyte count 0.7, WBC 9.3, D-dimer 0.38 Bicarb is 35 Lactic acid 2.6 Magnesium 1.7, ferritin 1161, AST 71 ALT 50 and LDH 1093 and CRP 142 Procalcitonin 0.24 08/16/2020 Patient is currently resting in bed comfortably. No complaints of chest pain or worsening shortness of breath. No acute distress. Awake alert when x3. Pat ient is currently requiring oxygen 5 L via nasal cannula. Patient has been febrile with T-max 101.7 Laboratory reviewed. Chest x-ray showed consistent with bilateral pneumonia. Currently being treated dexamethasone, Lovenox and remdesivir. Patient is also on antibiotics in the form of azithromycin. Pulmonary is on board. 08/17/2020 Patient is awake alert oriented x3. Still requiring oxygen at 5 L via nasal cannula. T-max is 99.2 patient has been afebrile currently. No nausea vomiting or abdominal pain or diarrhea. Chest x-ray showed limited exam demonstrates multifocal airspace disease correlate for pneumonia. Patient is being continued on remdesivir day 3. 08/18/2020 Patient respiratory status appears to be worsening and patient is presently on 10 L of oxygen patient will be closely monitored and the patient continues to be on Decadron and did receive remdesivir and plasma.patient doesn't appear to be doing well at this time. Still short of breath on 10 L of oxygen and saturating atlow 90s and patient is presently on Lovenox 40 mg subcutaneous. D-dimer is 0.74, chest x-ray continues to show significant bilateral infiltrate. 08/19/2020 Patient respiratory status has worsened patient remains on Decadron and the patient was transferred to ICU presently on FiO2 of 50% and flow of around 60 L per minute. Patient is not in respiratory distress. 08/20/2020 Patient remains on airvo , 60 L of oxygenchest x-ray showing diffuse interstitial infiltrates, LDH and other included markers are bit worse compared to yesterday. Finished course of remdesivir, received 1 unit of convalescent plasma. 08/21/2020 Patient can use when 69 as follows although saturations are bit better his LDH is coming down inflammatory markers seem to be getting better. 08/22/2020 Patient chest x-ray episode significant infiltrate patient remains on 6 L frogs and along with as needed Ventimask. 08/23/2020 Patient clinical condition did not change much. Patient is being started on Toclizumab to my monoclonal antibody for IL-6 receptor. 08/24/2020 Patient feels marginally better, patient remains in the 50 L of oxygen today patient has IL-6 level that was elevated and patient is on monoclonal antibody for that. 08/25/2020 Patient feels bit better. Patient remains on 50 L of oxygen. Patient was started on gentle hydration patient is bit hyponatremic probably secondary to hypovolemia . 08/26 2020 patient remains on the 45 L of oxygen, IV normal saline.her serum creatinine remained stable continue with IV normal saline.completed treatment with Remdesivir, convalescent plasma and Toclizumab 08/27/2020 Patient remains on 45 L of oxygen 08/28/2020 Patient's potassium is elevated serum sodium is 132. 08/29/2020 Patient's overall clinical condition is bit worse today and patient is presently on 55 L of oxygen. Patient is being started on Solu-Medrol 08/30/2020 Patient's inflammatory markers are bit down except for LDH which is bit elevated. Patient remains on the 55 L of oxygen. all that maybe minimal improvement patient is sitting in the chair. Patient has mild hyponatremia and elevated white blood cell count 2 27,000 has been slowly going up because of the systemic steroids presently not on any antibiotics. Constitutional: Denied any fatigue denied any fever. Cardio vascular: denied any chest pain, palpitations Gastrointestinal denied any nausea vomiting Pulmonary: continuous to be short of breath Neurologic denied any new focal deficits All inpatient medications were reviewed and appropriate changes in these medications as dictated in the interval history and assessment and plan. Objective - Vital Signs Vital signs: Vital Signs Temp 98.0 F 08/30/20 12:00 Pulse 101 H 08/30/20 14:00 Resp 26 H 08/30/20 14:00 BP 121/71 08/30/20 13:00 Pulse Ox 93 L 08/30/20 14:00 Intake & Output 08/29/20 08/30/20 08/30/20 18:59 06:59 18:59 Intake Total 940 360 160 Output Total 2700 1030 1620 Balance -1760 -670 -1460 Weight 129 kg Intake: IV 240 240 160 0.9 240 240 160 Oral 700 120 Output: Urine 2700 1030 1620 Other: Voiding Method Urinal Urinal Urinal # Voids 0 # Bowel Movements 1 - Exam PHYSICAL EXAMINATION: GENERAL: The patient is alert and oriented x3, patient is not in respiratory distress on 60 L of oxygen. Well developed, well nourished. HEENT: Pupils are round and equally reacting to light. EOMI. No scleral icterus. No conjunctival pallor. Normocephalic, atraumatic. No pharyngeal erythema. No thyromegaly. CARDIOVASCULAR: S1 and S2 present. No murmurs, rubs, or gallops. PULMONARY: Chest is clear to auscultation, no wheezing or crackles. ABDOMEN: Soft, nontender, nondistended, normoactive bowel sounds. No palpable organomegaly. MUSCULOSKELETAL: No joint swelling or deformity. EXTREMITIES: No cyanosis, clubbing, or pedal edema. NEUROLOGICAL: Gross neurological examination did not reveal any focal deficits. SKIN: No rashes. Note: Because of COVID 19 isolation, some of the history and physical exam findings are indirect and obtained from nursing staff, and other physician examinations to avoid unnecessary contact with the patient. - Labs CBC & Chem 7: 08/30/20 03:11 08/30/20 03:11 Labs: Abnormal Lab Results - Last 24 Hours (Table) 08/24/20 08/25/20 08/30/20 Range/Units 03:36 03:52 03:11 WBC (3.8-10.6) k/uL Plt Count (150-450) k/uL Neutrophils # (1.3-7.7) k/uL Basophils # (0-0.2) k/uL D-Dimer 1.42 H (<0.60) mg/L FEU Sodium (137-145) mmol/L Chloride (98-107) mmol/L Carbon Dioxide (22-30) mmol/L Glucose (74-99) mg/dL Ferritin (22.0-322.0) ng/mL Lactate Dehydrogenase (313-618) U/L LD Isoenzymes 295 H 322 H (100-220) U/L LD 1 18 L 17 L (19-38) % LD 5 15 H 19 H (3-14) % 08/30/20 08/30/20 Range/Units 03:11 03:11 WBC 29.5 H (3.8-10.6) k/uL Plt Count 465 H (150-450) k/uL Neutrophils # 26.7 H (1.3-7.7) k/uL Basophils # 0.3 H (0-0.2) k/uL D-Dimer (<0.60) mg/L FEU Sodium 130 L (137-145) mmol/L Chloride 92 L (98-107) mmol/L Carbon Dioxide 34 H (22-30) mmol/L Glucose 187 H (74-99) mg/dL Ferritin 440.4 H (22.0-322.0) ng/mL Lactate Dehydrogenase 1196 H (313-618) U/L LD Isoenzymes (100-220) U/L LD 1 (19-38) % LD 5 (3-14) % Assessment and Plan Plan: Acute COVID-19 viral pneumoniacan use oxygen support close monitoring if needed. Patient is presently on 55 L of oxygen completed Decadron 6 mg on Lovenox 40 mg and patient had 4 days of Remdesivir . 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
--- NOTE | 2020-08-30 15:38 | P.PN ---
Subjective Progress Note Date: 08/30/20 This is a 50-year-old male patient who was admitted on 08/15/2024 hypoxic respiratory failure that was attributed to COVID 19 pneumonia . The patient progressively became more hypoxic, the patient got transferred to the intensive care units. The patient had impending respiratory failure and the patient was treated high flow oxygen which is currently being utilized at 55 L per minute and an FiO2 of 80%. The patient during his course of treatment has received convalescent plasma 2, Tocilizum and Remdesivir. . He also has received other supportive measures including a combination of Decadron, Pepcid, melatonin, vitamin C, vitamin D and zinc. He has done slow if any progress over the past few days. He remains in intensive care units. Chest x-ray remains unchanged with diffuse bilateral pulmonary infiltrates consistent with Covid 19 pneumonia. The white cell count is down to 14.4 The d-dimer was at 2.36 max blood work is showing a component of metabolic alkalosis with a serum bicarbonate above 30. Potassium level from yesterday was at 5. 7. The patient is on Lovenox 60 mg subcu every 12 hours. He is on Symbicort 160/4.52 puffs twice a day. He is also receiving albuterol HFA 4 times a day [id number]. IV fluids at the rate of 100 mL an hour. He reports that his condition is stable for now. There is no worsening shortness of breath a chest x-ray findings shows a stable by the pulmonary infiltrates per no interval change compared to yesterday. On today's evaluation of 08/19/2020, the patient is doing essentially the same compared to yesterday. He has very limited reserve and the patient desaturates easily with minimal amount of activity. I have a high flow oxygen at 55 L with an FiO2 of 80%. The patient's pulse is ranging between 80% and 91%. He is afebrile. He is having increased edema lower extremities bilaterally. He is on IV fluids at KVO at 20 she is an hour. Utilizing incentive spirometer and pulling approximately 1000 on his incentive spirometer.. I started him on prednisone yesterday and I think I'm going to transition to IV Solu-Medrol. Chest x-ray findings and essentially unchanged. The patient continues to be hemodynamically stable and alert and awake. Is feeling a bit weak and discouraged because of the prolonged course of the symptoms. He is tolerating diet. He is still in the intensive care units. On 08/30/2020, Lee this is essentially the same and unchanged is still struggling from his Covid 19 related pneumonia. Chest x-ray findings have been essentially stable and unchanged and the patient's oxygen requirements have also remain unchanged and the patient continues to be on high flow oxygen at 55 L along with 100% nonrebreather facemask. The patient desaturates easily even while talking. He is short of breath. He was given IV Lasix. His establish negative fluid balance and he feels less swollen lower extremities bilaterally. He was having some insomnia the patient was started on IV Solu Medrol. He tells me that he was unable to sleep throughout the night. His IV fluids currently running at KVO at 20 mL an hour. He has been receiving IV Solu Medrol 60 mg every 8 hours. He'll be receiving additional dose of Lasix today. No altered mentation. No nausea. No vomiting. No diarrhea. No abdominal pain. Objective - Vital Signs Vital signs: Vital Signs Temp 98.0 F 08/30/20 08:00 Pulse 90 08/30/20 09:00 Resp 23 08/30/20 09:00 BP 129/84 08/30/20 09:00 Pulse Ox 88 L 08/30/20 09:00 Intake & Output 08/29/20 08/30/20 08/30/20 18:59 06:59 18:59 Intake Total 940 360 60 Output Total 2700 1030 320 Balance -1760 -670 -260 Weight 129 kg Intake: IV 240 240 60 0.9 240 240 60 Oral 700 120 Output: Urine 2700 1030 320 Other: Voiding Method Urinal Urinal # Voids 0 # Bowel Movements 1 - Exam The patient Gen. appearance is mild degree of respiratory distress and the patient is mildly tachypneic. He remains on high flow oxygen through nasal cannula. Head exam was generally normal. There was no scleral icterus or corneal arcus. Mucous membranes were moist. Neck was supple and without jugular venous distension, thyromegaly, or carotid bruits. Carotids were easily palpable bilaterally. There was no adenopathy. Lungs sounds reveals crackles in the lung bases bilaterally. Otherwise breath sounds are diminished yet there and symmetrical. Cardiac exam revealed the PMI to be normally situated and sized. The rhythm was regular and no extrasystoles were noted during several minutes of auscultation. The first and second heart sounds were normal and physiologic splitting of the second heart sound was noted. There were no murmurs, rubs, clicks, or gallops. Abdominal exam revealed normal bowel sounds. The abdomen was soft, non-tender, and without masses, organomegaly, or appreciable enlargement of the abdominal aorta. Examination of the extremities revealed easily palpable radial, femoral and pedal pulses. There was no cyanosis, clubbing or edema. Examination of the skin revealed no evidence of significant rashes, suspicious appearing nevi or other concerning lesions. Neurologically, the patient is awake and alert and the patient does not have any focal neurological deficit. Cranial nerves are essentially intact. - Labs CBC & Chem 7: 08/30/20 03:11 08/30/20 03:11 Labs: Abnormal Lab Results - Last 24 Hours (Table) 08/24/20 08/25/20 08/30/20 Range/Units 03:36 03:52 03:11 WBC (3.8-10.6) k/uL Plt Count (150-450) k/uL Neutrophils # (1.3-7.7) k/uL Basophils # (0-0.2) k/uL D-Dimer 1.42 H (<0.60) mg/L FEU Sodium (137-145) mmol/L Chloride (98-107) mmol/L Carbon Dioxide (22-30) mmol/L Glucose (74-99) mg/dL Ferritin (22.0-322.0) ng/mL Lactate Dehydrogenase (313-618) U/L LD Isoenzymes 295 H 322 H (100-220) U/L LD 1 18 L 17 L (19-38) % LD 5 15 H 19 H (3-14) % 08/30/20 08/30/20 Range/Units 03:11 03:11 WBC 29.5 H (3.8-10.6) k/uL Plt Count 465 H (150-450) k/uL Neutrophils # 26.7 H (1.3-7.7) k/uL Basophils # 0.3 H (0-0.2) k/uL D-Dimer (<0.60) mg/L FEU Sodium 130 L (137-145) mmol/L Chloride 92 L (98-107) mmol/L Carbon Dioxide 34 H (22-30) mmol/L Glucose 187 H (74-99) mg/dL Ferritin 440.4 H (22.0-322.0) ng/mL Lactate Dehydrogenase 1196 H (313-618) U/L LD Isoenzymes (100-220) U/L LD 1 (19-38) % LD 5 (3-14) % Assessment and Plan Plan: 1 Acute COVID-19 viral pneumonia, treated with Decadron , completed a 5 day course of Remdesivir , also received 2 doses of convalescent plasma and Toclizumab. The patient remains on 85 L of oxygen without significant improvement in his respiratory status. His chest x-ray findings are essentially stable. Yet again, no change in the patient's condition patient continues to be on high flow oxygen in addition to 100% nonrebreather facemask with significant respiratory insufficiency and very low reserve as the patient desaturates easily while talking and sometimes even spontaneously. 2 Acute hypoxic respiratory failure secondary to COVID-19 viral infection 3 Lactic acidosis resolved 4 GERD 5 History of GI bleed and gastric ulcer 6 Hypertension 7 metabolic alkalosis 8 leukocytosis , improving 9 hyperlipidemia and the patient was taken off MARK inhibitor Plan Continue high flow oxygen for respiratory support Kept on IV fluids to KVO Give the patient additional Lasix dose 40 mg IV push Stop the prednisone put the patient IV Solu Medrol 60 mg every 8 hours Lovenox 60 mg subcu twice a day Continue the rest of the supportive care Minimal or no progress clinically Condition is still critically the patient will be kept in ICU for another 24 hours.
[2020-08-30] MEDS: ZOLPIDEM 10 MG TAB PO PRN (20:20)
[2020-08-30] MEDS: MELATONIN 5 MG TABLET PO SCH (20:21)
[2020-08-31] MEDS: methylPREDNISolone SOD SUCCI 125 MG/2 ML VIAL IV SCH ×3 (01:28→16:55)
[2020-08-31 04:52] LABS: HCT 38.2 % (39.0-53.0); HGB 12.7 gm/dL (13.0-17.5); MCH 31.3 pg (25.0-35.0); MCHC 33.2 g/dL (31.0-37.0); MCV 94.3 fL (80.0-100.0); Mean Platelet Volume 6.3; Platelet Count 487 k/uL (150-450); RBC 4.05 m/uL (4.30-5.90); RDW 13.6 % (11.5-15.5)
[2020-08-31 05:08] LABS: D-Dimer 1.18 mg/L FEU (<0.60)
[2020-08-31 05:16] LABS: African American GFR (CKD) >90 (>60 ml/min/1.73 sqM); Anion Gap 4 mmol/L; Blood Urea Nitrogen 22 mg/dL (9-20); C Reactive Protein <5.0 mg/L (<10.0); Calcium 9.7 mg/dL (8.4-10.2); Carbon Dioxide 33 mmol/L (22-30); Chloride 93 mmol/L (98-107); Glucose 197 mg/dL (74-99); Non-African American GFR(CKD) >90 (>60 ml/min/1.73 sqM); Potassium 4.9 mmol/L (3.5-5.1); Sodium 130 mmol/L (137-145)
[2020-08-31 05:47] LABS: Lymphocytes # (M) 3.74 k/uL (1.0-4.8); Monocytes # (M) 2.38 k/uL (0-1.0); Neutrophils # (M) 28.22 k/uL (1.3-7.7); Neutrophils % (M) 83 %; Nucleated Red Blood Cells 0 /100 WBC (0-0); Total Cells Counted 200
[2020-08-31] MEDS: SYMBICORT 160-4.5 MCG INHALER INHALATION SCH ×2 (07:41→20:00)
[2020-08-31] MEDS: ALBUTEROL HFA INHALER INHALATION SCH ×4 (07:41→20:00)
[2020-08-31] MEDS: DULoxetine HCL 60 MG CAPSULE.DR PO SCH (08:14)
[2020-08-31] MEDS: ENOXAPARIN 60 MG/0.6 ML SYRINGE SQ SCH ×2 (08:14→21:11)
[2020-08-31] MEDS: ASCORBIC ACID 500 MG TAB PO SCH (08:14)
[2020-08-31] MEDS: CHOLECALCIFEROL 1,000 UNIT TAB PO SCH ×2 (08:15→08:17)
[2020-08-31] MEDS: amLODIPine 5 MG TAB PO SCH (08:17)
[2020-08-31] MEDS: ZINC SULFATE 220 MG CAP PO SCH (08:17)
[2020-08-31] MEDS: FAMOTIDINE 20 MG TAB PO SCH ×2 (08:17→21:11)
[2020-08-31] MEDS: SENNOSIDES 8.6 MG TAB PO SCH ×2 (08:56→21:11)
--- NOTE | 2020-08-31 09:00 | XR ---
EXAMINATION TYPE: XR chest 1V portable DATE OF EXAM: 08/31/2020 COMPARISON: 08/29/2020 HISTORY: Shortness of breath TECHNIQUE: Single frontal view of the chest is obtained. FINDINGS: Diffuse bilateral multifocal infiltrates are stable. No pneumothorax. Reduced inspiration. Heart size stable. No sizable pleural effusion. IMPRESSION: Multifocal infiltrates are stable.
[2020-08-31] MEDS: ONDANSETRON 4 MG/2 ML VIAL IVP PRN ×3 (09:36→21:11)
[2020-08-31 09:38] LABS: Ferritin 411.6 ng/mL (22.0-322.0)
[2020-08-31 10:48] VITALS: BMI 36.8
[2020-08-31] MEDS: SODIUM CHLORIDE 0.9% 1,000 ML IV SCH (12:46)
--- NOTE | 2020-08-31 15:10 | P.PN ---
Subjective Progress Note Date: 08/31/20 This is a 50-year-old male patient who was admitted on 08/15/2024 hypoxic respiratory failure that was attributed to COVID 19 pneumonia . The patient progressively became more hypoxic, the patient got transferred to the intensive care units. The patient had impending respiratory failure and the patient was treated high flow oxygen which is currently being utilized at 55 L per minute and an FiO2 of 80%. The patient during his course of treatment has received convalescent plasma 2, Tocilizum and Remdesivir. . He also has received other supportive measures including a combination of Decadron, Pepcid, melatonin, vitamin C, vitamin D and zinc. He has done slow if any progress over the past few days. He remains in intensive care units. Chest x-ray remains unchanged with diffuse bilateral pulmonary infiltrates consistent with Covid 19 pneumonia. The white cell count is down to 14.4 The d-dimer was at 2.36 max blood work is showing a component of metabolic alkalosis with a serum bicarbonate above 30. Potassium level from yesterday was at 5. 7. The patient is on Lovenox 60 mg subcu every 12 hours. He is on Symbicort 160/4.52 puffs twice a day. He is also receiving albuterol HFA 4 times a day [id number]. IV fluids at the rate of 100 mL an hour. He reports that his condition is stable for now. There is no worsening shortness of breath a chest x-ray findings shows a stable by the pulmonary infiltrates per no interval change compared to yesterday. On today's evaluation of 08/19/2020, the patient is doing essentially the same compared to yesterday. He has very limited reserve and the patient desaturates easily with minimal amount of activity. I have a high flow oxygen at 55 L with an FiO2 of 80%. The patient's pulse is ranging between 80% and 91%. He is afebrile. He is having increased edema lower extremities bilaterally. He is on IV fluids at KVO at 20 she is an hour. Utilizing incentive spirometer and pulling approximately 1000 on his incentive spirometer.. I started him on prednisone yesterday and I think I'm going to transition to IV Solu-Medrol. Chest x-ray findings and essentially unchanged. The patient continues to be hemodynamically stable and alert and awake. Is feeling a bit weak and discouraged because of the prolonged course of the symptoms. He is tolerating diet. He is still in the intensive care units. On 08/30/2020, Lee this is essentially the same and unchanged is still struggling from his Covid 19 related pneumonia. Chest x-ray findings have been essentially stable and unchanged and the patient's oxygen requirements have also remain unchanged and the patient continues to be on high flow oxygen at 55 L along with 100% nonrebreather facemask. The patient desaturates easily even while talking. He is short of breath. He was given IV Lasix. His establish negative fluid balance and he feels less swollen lower extremities bilaterally. He was having some insomnia the patient was started on IV Solu Medrol. He tells me that he was unable to sleep throughout the night. His IV fluids currently running at KVO at 20 mL an hour. He has been receiving IV Solu Medrol 60 mg every 8 hours. He'll be receiving additional dose of Lasix today. No altered mentation. No nausea. No vomiting. No diarrhea. No abdominal pain. On 08/31/2020, the patient is a 55 of 85% in addition to the use of 100% on a beta facemask occasionally. He remains on IV Solu-Medrol 60 mg every 8 hours. He is feeling better. The chest x-ray is showing that she has bilateral pulmonary infiltrates and the findings are stable. Mother the white cell count is up to 34 and I think this is a steroid-induced effect. Platelet count is at 487. The patient has elevation in neutrophil counts. Less of the blood work essentially within normal limits. A pro calcitonin level will be ordered. Note that the patient's ferritin level is at 411. The CRP is less than 5 LDH from yesterday was 10/13/1995. Note that the patient patient hasn't significantly and has been on a negative fluid balance of 2.3 L over the past 24 hours. He di d receive Ambien overnight and the patient had a good night sleep. No nausea. No vomiting. No fever. No other significant events otherwise for now. Objective - Vital Signs Vital signs: Vital Signs Temp 98.0 F 08/31/20 12:00 Pulse 121 H 08/31/20 14:00 Resp 23 08/31/20 14:00 BP 139/96 08/31/20 14:00 Pulse Ox 96 08/31/20 14:00 Intake & Output 08/30/20 08/31/20 08/31/20 18:59 06:59 18:59 Intake Total 180 Output Total 4806 273 6230 Balance -1740 -600 -1050 Weight 130.4 kg 130.4 kg Intake: IV 180 0.9 180 Output: Urine 2704 384 6930 Other: Voiding Method Urinal Urinal Urinal # Voids 0 0 # Bowel Movements 1 1 - Exam The patient Gen. appearance is mild degree of respiratory distress and the patient is mildly tachypneic. He remains on high flow oxygen through nasal cannula. Head exam was generally normal. There was no scleral icterus or corneal arcus. Mucous membranes were moist. Neck was supple and without jugular venous distension, thyromegaly, or carotid bruits. Carotids were easily palpable bilaterally. There was no adenopathy. Lungs sounds reveals crackles in the lung bases bilaterally. Otherwise breath sounds are diminished yet there and symmetrical. Cardiac exam revealed the PMI to be normally situated and sized. The rhythm was regular and no extrasystoles were noted during several minutes of auscultation. The first and second heart sounds were normal and physiologic splitting of the second heart sound was noted. There were no murmurs, rubs, clicks, or gallops. Abdominal exam revealed normal bowel sounds. The abdomen was soft, non-tender, and without masses, organomegaly, or appreciable enlargement of the abdominal aorta. Examination of the extremities revealed easily palpable radial, femoral and pedal pulses. There was no cyanosis, clubbing or edema. Examination of the skin revealed no evidence of significant rashes, suspicious appearing nevi or other concerning lesions. Neurologically, the patient is awake and alert and the patient does not have any focal neurological deficit. Cranial nerves are essentially intact. - Labs CBC & Chem 7: 08/31/20 04:34 08/31/20 04:34 Labs: Abnormal Lab Results - Last 24 Hours (Table) 08/31/20 08/31/20 08/31/20 Range/Units 04:34 04:34 04:34 WBC 34.0 H (3.8-10.6) k/uL RBC 4.05 L (4.30-5.90) m/uL Hgb 12.7 L (13.0-17.5) gm/dL Hct 38.2 L (39.0-53.0) % Plt Count 487 H (150-450) k/uL Neutrophils # (Manual) 28.22 H (1.3-7.7) k/uL Monocytes # (Manual) 2.38 H (0-1.0) k/uL D-Dimer 1.18 H (<0.60) mg/L FEU Sodium 130 L (137-145) mmol/L Chloride 93 L (98-107) mmol/L Carbon Dioxide 33 H (22-30) mmol/L BUN 22 H (9-20) mg/dL Glucose 197 H (74-99) mg/dL Ferritin 411.6 H (22.0-322.0) ng/mL Assessment and Plan Plan: 1 Acute COVID-19 viral pneumonia, treated with Decadron , completed a 5 day course of Remdesivir , also received 2 doses of convalescent plasma and Toclizumab. The patient remains on 55 L of oxygen without significant improvement in his respiratory status. His chest x-ray findings are essentially stable. The patient is on high dose IV Solu-Medrol. He is receiving 60 mg every 8 hours. He clinically feels better. No major improvement in oxygenation 2 Acute hypoxic respiratory failure secondary to COVID-19 viral infection. 3 Lactic acidosis resolved 4 GERD 5 History of GI bleed and gastric ulcer 6 Hypertension 7 metabolic alkalosis 8 leukocytosis , improving 9 hyperlipidemia and the patient was taken off MARK inhibitor 10 leukocytosis which is essentially steroid-induced. Doubt any bacterial infection Plan Continue high flow oxygen for respiratory support Kept on IV fluids to KVO No further dose of Lasix and the patient has been adequately diuresed Continue prednisone put the patient IV Solu Medrol 60 mg every 8 hours Lovenox 60 mg subcu twice a day Continue the rest of the supportive care Monitor the white cell count Check pro-calcitonin level Condition is still critically the patient will be kept in ICU for another 24 hours.
--- NOTE | 2020-08-31 15:59 | P.PN ---
Subjective Acute COVID-19 viral pneumonia Patient is a 50-year-old male with a known history of hypertension, GERD, lower GI bleed, right shoulder injury/pain presents to ER with complaints of generalized weakness and body aches and fever and chills and worsening shortness of breath for the past 4 days. Patient was seen at his PCPs office yesterday and tested for COVID-19 which came out positive. Patient states that he developed shortness of breath this morning and his pulse ox was 88% on room air. Patient presented to ER for evaluation. 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 No complaints of chest pain. No nausea vomiting or abdominal pain or diarrhea. Denied any loss of smell. Patient did have headache this morning. Currently denies any headache. Chest x-ray showed bilateral pneumonia. EKG showed normal sinus rhythm Laboratory data showed lymphocyte count 0.7, WBC 9.3, D-dimer 0.38 Bicarb is 35 Lactic acid 2.6 Magnesium 1.7, ferritin 1161, AST 71 ALT 50 and LDH 1093 and CRP 142 Procalcitonin 0.24 08/16/2020 Patient is currently resting in bed comfortably. No complaints of chest pain or worsening shortness of breath. No acute distress. Awake alert when x3. Pat ient is currently requiring oxygen 5 L via nasal cannula. Patient has been febrile with T-max 101.7 Laboratory reviewed. Chest x-ray showed consistent with bilateral pneumonia. Currently being treated dexamethasone, Lovenox and remdesivir. Patient is also on antibiotics in the form of azithromycin. Pulmonary is on board. 08/17/2020 Patient is awake alert oriented x3. Still requiring oxygen at 5 L via nasal cannula. T-max is 99.2 patient has been afebrile currently. No nausea vomiting or abdominal pain or diarrhea. Chest x-ray showed limited exam demonstrates multifocal airspace disease correlate for pneumonia. Patient is being continued on remdesivir day 3. 08/18/2020 Patient respiratory status appears to be worsening and patient is presently on 10 L of oxygen patient will be closely monitored and the patient continues to be on Decadron and did receive remdesivir and plasma.patient doesn't appear to be doing well at this time. Still short of breath on 10 L of oxygen and saturating atlow 90s and patient is presently on Lovenox 40 mg subcutaneous. D-dimer is 0.74, chest x-ray continues to show significant bilateral infiltrate. 08/19/2020 Patient respiratory status has worsened patient remains on Decadron and the patient was transferred to ICU presently on FiO2 of 50% and flow of around 60 L per minute. Patient is not in respiratory distress. 08/20/2020 Patient remains on airvo , 60 L of oxygenchest x-ray showing diffuse interstitial infiltrates, LDH and other included markers are bit worse compared to yesterday. Finished course of remdesivir, received 1 unit of convalescent plasma. 08/21/2020 Patient can use when 69 as follows although saturations are bit better his LDH is coming down inflammatory markers seem to be getting better. 08/22/2020 Patient chest x-ray episode significant infiltrate patient remains on 6 L frogs and along with as needed Ventimask. 08/23/2020 Patient clinical condition did not change much. Patient is being started on Toclizumab to my monoclonal antibody for IL-6 receptor. 08/24/2020 Patient feels marginally better, patient remains in the 50 L of oxygen today patient has IL-6 level that was elevated and patient is on monoclonal antibody for that. 08/25/2020 Patient feels bit better. Patient remains on 50 L of oxygen. Patient was started on gentle hydration patient is bit hyponatremic probably secondary to hypovolemia . 08/26 2020 patient remains on the 45 L of oxygen, IV normal saline.her serum creatinine remained stable continue with IV normal saline.completed treatment with Remdesivir, convalescent plasma and Toclizumab 08/27/2020 Patient remains on 45 L of oxygen 08/28/2020 Patient's potassium is elevated serum sodium is 132. 08/29/2020 Patient's overall clinical condition is bit worse today and patient is presently on 55 L of oxygen. Patient is being started on Solu-Medrol 08/30/2020 Patient's inflammatory markers are bit down except for LDH which is bit elevated. Patient remains on the 55 L of oxygen. all that maybe minimal improvement patient is sitting in the chair. Patient has mild hyponatremia and elevated white blood cell count 2 27,000 has been slowly going up because of the systemic steroids presently not on any antibiotics. 08/31/2020 Patient's serum sodium remained stable at 130. Respiratory status is fairly stable. Patient slept well last night with Ambien. Patient feels better. Hopefully we will be able to wean him off oxygen presently on the 55 L of oxygen which remained stable compared to yesterday Constitutional: Denied any fatigue denied any fever. Cardio vascular: denied any chest pain, palpitations Gastrointestinal denied any nausea vomiting Pulmonary: Denied any shortness of breath Neurologic denied any new focal deficits All inpatient medications were reviewed and appropriate changes in these medications as dictated in the interval history and assessment and plan. Objective - Vital Signs Vital signs: Vital Signs Temp 98.0 F 08/31/20 12:00 Pulse 110 H 08/31/20 15:00 Resp 20 08/31/20 15:00 BP 149/93 08/31/20 15:00 Pulse Ox 96 08/31/20 15:39 Intake & Output 08/30/20 08/31/20 08/31/20 18:59 06:59 18:59 Intake Total 180 Output Total 5665 954 5864 Balance -1740 -600 -1050 Weight 130.4 kg 130.4 kg Intake: IV 180 0.9 180 Output: Urine 6581 932 0570 Other: Voiding Method Urinal Urinal Urinal # Voids 0 0 # Bowel Movements 1 1 - Exam PHYSICAL EXAMINATION: GENERAL: The patient is alert and oriented x3, patient is not in respiratory distress on 60 L of oxygen. Well developed, well nourished. HEENT: Pupils are round and equally reacting to light. EOMI. No scleral icterus. No conjunctival pallor. Normocephalic, atraumatic. No pharyngeal erythema. No t hyromegaly. CARDIOVASCULAR: S1 and S2 present. No murmurs, rubs, or gallops. PULMONARY: Chest is clear to auscultation, no wheezing or crackles. ABDOMEN: Soft, nontender, nondistended, normoactive bowel sounds. No palpable organomegaly. MUSCULOSKELETAL: No joint swelling or deformity. EXTREMITIES: No cyanosis, clubbing, or pedal edema. NEUROLOGICAL: Gross neurological examination did not reveal any focal deficits. SKIN: No rashes. Note: Because of COVID 19 isolation, some of the history and physical exam findings are indirect and obtained from nursing staff, and other physician examinations to avoid unnecessary contact with the patient. - Labs CBC & Chem 7: 08/31/20 04:34 08/31/20 04:34 Labs: Abnormal Lab Results - Last 24 Hours (Table) 08/31/20 08/31/20 08/31/20 Range/Units 04:34 04:34 04:34 WBC 34.0 H (3.8-10.6) k/uL RBC 4.05 L (4.30-5.90) m/uL Hgb 12.7 L (13.0-17.5) gm/dL Hct 38.2 L (39.0-53.0) % Plt Count 487 H (150-450) k/uL Neutrophils # (Manual) 28.22 H (1.3-7.7) k/uL Monocytes # (Manual) 2.38 H (0-1.0) k/uL D-Dimer 1.18 H (<0.60) mg/L FEU Sodium 130 L (137-145) mmol/L Chloride 93 L (98-107) mmol/L Carbon Dioxide 33 H (22-30) mmol/L BUN 22 H (9-20) mg/dL Glucose 197 H (74-99) mg/dL Ferritin 411.6 H (22.0-322.0) ng/mL Assessment and Plan Plan: Acute COVID-19 viral pneumoniacan use oxygen support close monitoring if needed. Patient is presently on 55 L of oxygen completed Decadron 6 mg on Lovenox 40 mg and patient had 4 days of Remdesivir . 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
[2020-08-31] MEDS: ALPRAZolam 0.25 MG TAB PO PRN (20:06)
[2020-08-31] MEDS: MELATONIN 5 MG TABLET PO SCH (21:11)
[2020-08-31] MEDS: ZOLPIDEM 10 MG TAB PO PRN (21:11)
[2020-09-01] MEDS: methylPREDNISolone SOD SUCCI 125 MG/2 ML VIAL IV SCH ×3 (00:31→15:44)
[2020-09-01 07:15] LABS: Basophils # (A) 0.1 k/uL (0-0.2); Basophils % (A) 0 %; Eosinophils # (A) 0.1 k/uL (0-0.7); Eosinophils % (A) 0 %; HCT 37.4 % (39.0-53.0); HGB 12.4 gm/dL (13.0-17.5); Lymphocytes # (A) 2.4 k/uL (1.0-4.8); Lymphocytes % (A) 8 %; MCH 31.1 pg (25.0-35.0); MCHC 33.2 g/dL (31.0-37.0); MCV 93.7 fL (80.0-100.0); Mean Platelet Volume 6.7; Monocytes # (A) 2.1 k/uL (0-1.0); Monocytes % (A) 7 %; Neutrophils % (A) 85 %; Platelet Count 465 k/uL (150-450); RBC 3.99 m/uL (4.30-5.90); RDW 14.2 % (11.5-15.5); WBC 31.9 k/uL (3.8-10.6)
[2020-09-01] MEDS: ALBUTEROL HFA INHALER INHALATION SCH ×4 (07:58→19:25)
[2020-09-01] MEDS: SYMBICORT 160-4.5 MCG INHALER INHALATION SCH ×2 (07:58→19:25)
[2020-09-01] MEDS: ZINC SULFATE 220 MG CAP PO SCH (08:49)
[2020-09-01] MEDS: amLODIPine 5 MG TAB PO SCH (08:49)
[2020-09-01] MEDS: CHOLECALCIFEROL 1,000 UNIT TAB PO SCH (08:49)
[2020-09-01] MEDS: FAMOTIDINE 20 MG TAB PO SCH ×2 (08:49→20:42)
[2020-09-01] MEDS: SENNOSIDES 8.6 MG TAB PO SCH ×2 (08:49→20:42)
[2020-09-01] MEDS: DULoxetine HCL 60 MG CAPSULE.DR PO SCH (08:50)
[2020-09-01] MEDS: ASCORBIC ACID 500 MG TAB PO SCH (08:50)
[2020-09-01] MEDS: ENOXAPARIN 60 MG/0.6 ML SYRINGE SQ SCH ×2 (09:32→21:54)
[2020-09-01] MEDS: ONDANSETRON 4 MG/2 ML VIAL IVP PRN ×2 (09:33→20:42)
--- NOTE | 2020-09-01 10:07 | XR ---
EXAMINATION TYPE: XR chest 1V portable DATE OF EXAM: 09/01/2020 COMPARISON: Prior chest x-ray 08/31/2020 HISTORY: Pneumonia, Covid TECHNIQUE: Single frontal view of the chest is obtained. FINDINGS: Bilateral airspace disease persists. No evident pneumothorax or pleural effusion. Heart is stable. Lung volumes are low. IMPRESSION: Findings consistent with patient's history of Covid pneumonia.
[2020-09-01 10:56] LABS: African American GFR (CKD) 121.6 (60.0-200.0); Anion Gap 5.1 mmol/L (4.00-12.00); BUN/Creat Ratio 28.75 Ratio (12.00-20.00); Calcium 9.6 mg/dL (8.7-10.3); Carbon Dioxide 32.9 mmol/L (21.6-31.8); Non-African American GFR(CKD) 104.9 (60.0-200.0); Potassium 4.9 mmol/L (3.5-5.5)
--- NOTE | 2020-09-01 12:31 | P.PN ---
Subjective Acute COVID-19 viral pneumonia Patient is a 50-year-old male with a known history of hypertension, GERD, lower GI bleed, right shoulder injury/pain presents to ER with complaints of generalized weakness and body aches and fever and chills and worsening shortness of breath for the past 4 days. Patient was seen at his PCPs office yesterday and tested for COVID-19 which came out positive. Patient states that he developed shortness of breath this morning and his pulse ox was 88% on room air. Patient presented to ER for evaluation. 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 No complaints of chest pain. No nausea vomiting or abdominal pain or diarrhea. Denied any loss of smell. Patient did have headache this morning. Currently denies any headache. Chest x-ray showed bilateral pneumonia. EKG showed normal sinus rhythm Laboratory data showed lymphocyte count 0.7, WBC 9.3, D-dimer 0.38 Bicarb is 35 Lactic acid 2.6 Magnesium 1.7, ferritin 1161, AST 71 ALT 50 and LDH 1093 and CRP 142 Procalcitonin 0.24 08/16/2020 Patient is currently resting in bed comfortably. No complaints of chest pain or worsening shortness of breath. No acute distress. Awake alert when x3. Pat ient is currently requiring oxygen 5 L via nasal cannula. Patient has been febrile with T-max 101.7 Laboratory reviewed. Chest x-ray showed consistent with bilateral pneumonia. Currently being treated dexamethasone, Lovenox and remdesivir. Patient is also on antibiotics in the form of azithromycin. Pulmonary is on board. 08/17/2020 Patient is awake alert oriented x3. Still requiring oxygen at 5 L via nasal cannula. T-max is 99.2 patient has been afebrile currently. No nausea vomiting or abdominal pain or diarrhea. Chest x-ray showed limited exam demonstrates multifocal airspace disease correlate for pneumonia. Patient is being continued on remdesivir day 3. 08/18/2020 Patient respiratory status appears to be worsening and patient is presently on 10 L of oxygen patient will be closely monitored and the patient continues to be on Decadron and did receive remdesivir and plasma.patient doesn't appear to be doing well at this time. Still short of breath on 10 L of oxygen and saturating atlow 90s and patient is presently on Lovenox 40 mg subcutaneous. D-dimer is 0.74, chest x-ray continues to show significant bilateral infiltrate. 08/19/2020 Patient respiratory status has worsened patient remains on Decadron and the patient was transferred to ICU presently on FiO2 of 50% and flow of around 60 L per minute. Patient is not in respiratory distress. 08/20/2020 Patient remains on airvo , 60 L of oxygenchest x-ray showing diffuse interstitial infiltrates, LDH and other included markers are bit worse compared to yesterday. Finished course of remdesivir, received 1 unit of convalescent plasma. 08/21/2020 Patient can use when 69 as follows although saturations are bit better his LDH is coming down inflammatory markers seem to be getting better. 08/22/2020 Patient chest x-ray episode significant infiltrate patient remains on 6 L frogs and along with as needed Ventimask. 08/23/2020 Patient clinical condition did not change much. Patient is being started on Toclizumab to my monoclonal antibody for IL-6 receptor. 08/24/2020 Patient feels marginally better, patient remains in the 50 L of oxygen today patient has IL-6 level that was elevated and patient is on monoclonal antibody for that. 08/25/2020 Patient feels bit better. Patient remains on 50 L of oxygen. Patient was started on gentle hydration patient is bit hyponatremic probably secondary to hypovolemia . 08/26 2020 patient remains on the 45 L of oxygen, IV normal saline.her serum creatinine remained stable continue with IV normal saline.completed treatment with Remdesivir, convalescent plasma and Toclizumab 08/27/2020 Patient remains on 45 L of oxygen 08/28/2020 Patient's potassium is elevated serum sodium is 132. 08/29/2020 Patient's overall clinical condition is bit worse today and patient is presently on 55 L of oxygen. Patient is being started on Solu-Medrol 08/30/2020 Patient's inflammatory markers are bit down except for LDH which is bit elevated. Patient remains on the 55 L of oxygen. all that maybe minimal improvement patient is sitting in the chair. Patient has mild hyponatremia and elevated white blood cell count 2 27,000 has been slowly going up because of the systemic steroids presently not on any antibiotics. 08/31/2020 Patient's serum sodium remained stable at 130. Respiratory status is fairly stable. Patient slept well last night with Ambien. Patient feels better. Hopefully we will be able to wean him off oxygen presently on the 55 L of oxygen which remained stable compared to yesterday 09/01/2020 Sodium improved white blood cell count continue to go up actually better compared to yesterday secondary to systemic steroids. Constitutional: Denied any fatigue denied any fever. Cardio vascular: denied any chest pain, palpitations Gastrointestinal denied any nausea vomiting Pulmonary: Denied any shortness of breath Neurologic denied any new focal deficits All inpatient medications were reviewed and appropriate changes in these medications as dictated in the interval history and assessment and plan. Objective - Vital Signs Vital signs: Vital Signs Temp 98.5 F 09/01/20 09:57 Pulse 104 H 08/31/20 20:59 Resp 19 09/01/20 05:36 BP 122/73 09/01/20 09:57 Pulse Ox 88 L 09/01/20 09:57 Intake & Output 08/31/20 09/01/20 09/01/20 18:59 06:59 18:59 Intake Total 500 250 Output Total 1400 0 Balance -900 0 250 Weight 130.4 kg Intake: Oral 500 250 Output: Urine 1400 0 Other: Voiding Method Urinal Urinal # Voids 0 # Bowel Movements 1 - Exam PHYSICAL EXAMINATION: GENERAL: The patient is alert and oriented x3, patient is not in respiratory distress on 60 L of oxygen. Well developed, well nourished. HEENT: Pupils are round and equally reacting to light. EOMI. No scleral icterus. No conjunctival pallor. Normocephalic, atraumatic. No pharyngeal erythema. No thyromegaly. CARDIOVASCULAR: S1 and S2 present. No murmurs, rubs, or gallops. PULMONARY: Chest is clear to auscultation, no wheezing or crackles. ABDOMEN: Soft, nontender, nondistended, normoactive bowel sounds. No palpable organomegaly. MUSCULOSKELETAL: No joint swelling or deformity. EXTREMITIES: No cyanosis, clubbing, or pedal edema. NEUROLOGICAL: Gross neurological examination did not reveal any focal deficits. SKIN: No rashes. Note: Because of COVID 19 isolation, some of the history and physical exam findings are indirect and obtained from nursing staff, and other physician examinations to avoid unnecessary contact with the patient. - Labs CBC & Chem 7: 09/01/20 06:09 09/01/20 06:09 Labs: Abnormal Lab Results - Last 24 Hours (Table) 09/01/20 09/01/20 Range/Units 06:09 06:09 WBC 31.9 H (3.8-10.6) k/uL RBC 3.99 L (4.30-5.90) m/uL Hgb 12.4 L (13.0-17.5) gm/dL Hct 37.4 L (39.0-53.0) % Plt Count 465 H (150-450) k/uL Neutrophils # 27.0 H (1.3-7.7) k/uL Monocytes # 2.1 H (0-1.0) k/uL Sodium 133 L (135-145) mmol/L Chloride 95 L (96-109) mmol/L Carbon Dioxide 32.9 H (21.6-31.8) mmol/L BUN/Creatinine Ratio 28.75 H (12.00-20.00) Ratio Glucose 166 H (70-110) mg/dL Assessment and Plan Plan: Acute COVID-19 viral pneumoniacan use oxygen support close monitoring if needed. Patient is presently on 50 L of oxygen completed Decadron 6 mg on Lovenox 40 mg and patient had 4 days of Remdesivir . 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
[2020-09-01] MEDS: SODIUM CHLORIDE 0.9% 1,000 ML IV SCH (14:08)
--- NOTE | 2020-09-01 16:51 | P.PN ---
Subjective Progress Note Date: 09/01/20 Principal diagnosis: Covid 19 related pneumonia This is a 50-year-old male patient who was admitted on 08/15/2024 hypoxic respiratory failure that was attributed to COVID 19 pneumonia . The patient progressively became more hypoxic, the patient got transferred to the intensive care units. The patient had impending respiratory failure and the patient was treated high flow oxygen which is currently being utilized at 55 L per minute and an FiO2 of 80%. The patient during his course of treatment has received convalescent plasma 2, Tocilizum and Remdesivir. . He also has received other supportive measures including a combination of Decadron, Pepcid, melatonin, vitamin C, vitamin D and zinc. He has done slow if any progress over the past few days. He remains in intensive care units. Chest x-ray remains unchanged with diffuse bilateral pulmonary infiltrates consistent with Covid 19 pneumonia. The white cell count is down to 14.4 The d-dimer was at 2.36 max blood work is showing a component of metabolic alkalosis with a serum bicarbonate above 30. Potassium level from yesterday was at 5. 7. The patient is on Lovenox 60 mg subcu every 12 hours. He is on Symbicort 160/4.52 puffs twice a day. He is also receiving albuterol HFA 4 times a day [id number]. IV fluids at the rate of 100 mL an hour. He reports that his condition is stable for now. There is no worsening shortness of breath a chest x-ray findings shows a stable by the pulmonary infiltrates per no interval change compared to yesterday. On today's evaluation of 08/19/2020, the patient is doing essentially the same compared to yesterday. He has very limited reserve and the patient desaturates easily with minimal amount of activity. I have a high flow oxygen at 55 L with an FiO2 of 80%. The patient's pulse is ranging between 80% and 91%. He is afebrile. He is having increased edema lower extremities bilaterally. He is on IV fluids at KVO at 20 she is an hour. Utilizing incentive spirometer and pulling approximately 1000 on his incentive spirometer.. I started him on pre dnisone yesterday and I think I'm going to transition to IV Solu-Medrol. Chest x-ray findings and essentially unchanged. The patient continues to be hemodynamically stable and alert and awake. Is feeling a bit weak and discouraged because of the prolonged course of the symptoms. He is tolerating diet. He is still in the intensive care units. On 08/30/2020, Lee this is essentially the same and unchanged is still struggling from his Covid 19 related pneumonia. Chest x-ray findings have been essentially stable and unchanged and the patient's oxygen requirements have also remain unchanged and the patient continues to be on high flow oxygen at 55 L along with 100% nonrebreather facemask. The patient desaturates easily even while talking. He is short of breath. He was given IV Lasix. His establish negative fluid balance and he feels less swollen lower extremities bilaterally. He was having some insomnia the patient was started on IV Solu Medrol. He tells me that he was unable to sleep throughout the night. His IV fluids currently running at KVO at 20 mL an hour. He has been receiving IV Solu Medrol 60 mg every 8 hours. He'll be receiving additional dose of Lasix today. No altered mentation. No nausea. No vomiting. No diarrhea. No abdominal pain. On 08/31/2020, the patient is a 55 of 85% in addition to the use of 100% on a beta facemask occasionally. He remains on IV Solu-Medrol 60 mg every 8 hours. He is feeling better. The chest x-ray is showing that she has bilateral pulmonary infiltrates and the findings are stable. Mother the white cell count is up to 34 and I think this is a steroid-induced effect. Platelet count is at 487. The patient has elevation in neutrophil counts. Less of the blood work essentially within normal limits. A pro calcitonin level will be ordered. Note that the patient's ferritin level is at 411. The CRP is less than 5 LDH from yesterday was 10/13/1995. Note that the patient patient hasn't significantly and has been on a negative fluid balance of 2.3 L over the past 24 hours. He did receive Ambien overnight and the patient had a good night sleep. No nausea. No vomiting. No fever. No other significant events otherwise for now. On 09/01/2020 patient seen in follow-up on general medical surgical floor. He was transferred out of intensive care unit yesterday, he remains on interval, FiO2 is being weaned, down to 50 L/m, and FiO2 of 54%, his pulse ox is between 88 and 90%, he is been up out of bed, ambulating to the bathroom, tolerating activity fairly well. His chest x-ray shows bilateral airspace disease. Today's labs having reviewed, showing white blood cell, 31.9, hemoglobin of 12.4, sodium of 133, potassium is 4.9, chloride is 95, CO2 32, BUN of 23, creatinine 0.8, his pro calcitonin is negative at 0.04, his last CRP was done on 08/31/2020 and was less than 5, and his last LDH was done on 08/31/2020, and was still significantly elevated at 1196. Remains on IV Solu-Medrol 60 mg every 8 hours, bronchodilators, Objective - Vital Signs Vital signs: Vital Signs Temp 98.5 F 09/01/20 14:00 Pulse 113 H 09/01/20 14:00 Resp 19 09/01/20 05:36 BP 129/71 09/01/20 14:00 Pulse Ox 90 L 09/01/20 16:18 Intake & Output 08/31/20 09/01/20 09/01/20 18:59 06:59 18:59 Intake Total 500 500 Output Total 1400 0 Balance -900 0 500 Weight 130.4 kg Intake: Oral 500 500 Output: Urine 1400 0 Other: Voiding Method Urinal Urinal # Voids 0 # Bowel Movements 1 - Exam GENERAL EXAM: Alert, pleasant, 50-year-old white male, on airvo at 50l/min, Fio2 54% with a pulse ox of 90%, comfortable in no apparent distress. HEAD: Normocephalic/atraumatic. EYES: Normal reaction of pupils, equal size. Conjunctiva pink, sclera white. NOSE: Clear with pink turbinates. THROAT: No erythema or exudates. NECK: No masses, no JVD, no thyroid enlargement, no adenopathy. CHEST: No chest wall deformity. Symmetrical expansion. LUNGS: Equal air entry with no crackles, wheeze, rhonchi or dullness. CVS: Regular rate and rhythm, normal S1 and S2, no gallops, no murmurs, no rubs ABDOMEN: Soft, nontender. No hepatosplenomegaly, normal bowel sounds, no guarding or rigidity. EXTREMITIES: No clubbing, no edema, no cyanosis, 2+ pulses and upper and lower extremities. MUSCULOSKELETAL: Muscle strength and tone normal. SPINE: No scoliosis or deformity SKIN: No rashes CENTRAL NERVOUS SYSTEM: Alert and oriented -3. No focal deficits, tone is normal in all 4 extremities. PSYCHIATRIC: Alert and oriented -3. Appropriate affect. Intact judgment and insight. - Labs CBC & Chem 7: 09/01/20 06:09 09/01/20 06:09 Labs: Abnormal Lab Results - Last 24 Hours (Table) 09/01/20 09/01/20 Range/Units 06:09 06:09 WBC 31.9 H (3.8-10.6) k/uL RBC 3.99 L (4.30-5.90) m/uL Hgb 12.4 L (13.0-17.5) gm/dL Hct 37.4 L (39.0-53.0) % Plt Count 465 H (150-450) k/uL Neutrophils # 27.0 H (1.3-7.7) k/uL Monocytes # 2.1 H (0-1.0) k/uL Sodium 133 L (135-145) mmol/L Chloride 95 L (96-109) mmol/L Carbon Dioxide 32.9 H (21.6-31.8) mmol/L BUN/Creatinine Ratio 28.75 H (12.00-20.00) Ratio Glucose 166 H (70-110) mg/dL Assessment and Plan Plan: Assessment: #1. Acute hypoxic respiratory failure related to acute COVID19 related pneumonia, tested positive for Covid 19 on 08/14/2020, started on Remdesivir on 08/15/2020. Patient has received 2 doses of convalescent plasma and Tocilizumab. He is hypoxemic respiratory failure became progressively worse, requiring Airvo with high flow oxygen, gradually has improved, chest x-ray findings relatively stable, with bilateral airspace disease, remains on IV Solu- Medrol #2. Elevated inflammatory markers related to the above #3. Mild lactic acidosis, improved with IV hydration #4. Febrile illness, body aches, dyspnea, related to viral pneumonia secondary to Covid 19 #5. History of anxiety/panic disorder #6. Lifetime nonsmoker #7. Hypertension #8. Chronic pain #9. GERD/reflux #10. History of GI bleeding and gastric ulcer #11. Metabolic alkalosis #12. Leukocytosis, improving, steroid induced, will calcitonin level was negative #13. Hyperlipidemia Plan: Weaning FiO2, his labs have been reviewed, chest x-ray reviewed, and the patient is feeling better, he is tolerating ambulation about the room, no worsening dyspnea, encouraged the patient to set up in the chair, be active, deep breathe. She has been afebrile, we'll obtain follow-up inflammatory markers, continue IV steroids, continue Lovenox. I performed a history & physical examination of the patient and discussed their management with my nurse practitioner, Val Chong. I reviewed the nurse practitioner's note and agree with the documented findings and plan of care. Lung sounds are positive for diminished breath sounds. The findings and the impression was discussed with the patient. I attest to the documentation by the nurse practitioner. Time with Patient: Less than 30
[2020-09-01] MEDS: ALPRAZolam 0.25 MG TAB PO PRN (20:42)
[2020-09-01] MEDS: MELATONIN 5 MG TABLET PO SCH (20:42)
[2020-09-01] MEDS: ZOLPIDEM 10 MG TAB PO PRN (20:42)
[2020-09-02] MEDS: methylPREDNISolone SOD SUCCI 125 MG/2 ML VIAL IV SCH ×3 (00:01→15:52)
[2020-09-02 06:41] LABS: HCT 38.6 % (39.0-53.0); HGB 12.3 gm/dL (13.0-17.5); MCH 30.4 pg (25.0-35.0); MCHC 31.8 g/dL (31.0-37.0); MCV 95.7 fL (80.0-100.0); Mean Platelet Volume 6.6; Platelet Count 420 k/uL (150-450); RBC 4.03 m/uL (4.30-5.90); RDW 14.3 % (11.5-15.5); WBC 31.2 k/uL (3.8-10.6)
[2020-09-02 07:26] LABS: Lymphocytes # (M) 2.18 k/uL (1.0-4.8); Metamyelocytes # (M) 0.31 k/uL (0); Metamyelocytes % 1 %; Monocytes # (M) 1.56 k/uL (0-1.0); Myelocytes # (M) 0.94 k/uL (0); Myelocytes % 3 %; Neutrophils # (M) 26.83 k/uL (1.3-7.7); Neutrophils % (M) 86 %; Nucleated Red Blood Cells 0 /100 WBC (0-0); Total Cells Counted 200
[2020-09-02 07:27] LABS: Polychromasia Present
[2020-09-02] MEDS: SYMBICORT 160-4.5 MCG INHALER INHALATION SCH ×2 (08:12→20:30)
[2020-09-02] MEDS: ALBUTEROL HFA INHALER INHALATION SCH ×4 (08:12→20:30)
[2020-09-02] MEDS: amLODIPine 5 MG TAB PO SCH (08:14)
[2020-09-02] MEDS: FAMOTIDINE 20 MG TAB PO SCH ×2 (08:14→20:48)
[2020-09-02] MEDS: CHOLECALCIFEROL 1,000 UNIT TAB PO SCH (08:14)
[2020-09-02] MEDS: ASCORBIC ACID 500 MG TAB PO SCH (08:15)
[2020-09-02] MEDS: DULoxetine HCL 60 MG CAPSULE.DR PO SCH (08:15)
[2020-09-02] MEDS: SENNOSIDES 8.6 MG TAB PO SCH ×2 (08:15→20:48)
[2020-09-02] MEDS: ENOXAPARIN 60 MG/0.6 ML SYRINGE SQ SCH ×2 (08:15→20:48)
[2020-09-02] MEDS: ZINC SULFATE 220 MG CAP PO SCH (08:15)
[2020-09-02 09:40] LABS: ALT 100 U/L (10-49); AST 37 U/L (14-35); African American GFR (CKD) 121.6 (60.0-200.0); Alkaline Phosphatase 145 U/L (41-126); C Reactive Protein <0.4 mg/dL (0.0-0.8); Calcium 9.4 mg/dL (8.7-10.3); Carbon Dioxide 33.8 mmol/L (21.6-31.8); Chloride 95 mmol/L (96-109); Glucose 223 mg/dL (70-110); LDH 374 U/L (120-246); Non-African American GFR(CKD) 104.9 (60.0-200.0); Potassium 4.9 mmol/L (3.5-5.5); Sodium 136 mmol/L (135-145); Total Bilirubin 0.3 mg/dL (0.3-1.2); Total Protein 5.8 g/dL (6.2-8.2)
[2020-09-02] MEDS: ONDANSETRON 4 MG/2 ML VIAL IVP PRN ×3 (10:20→20:52)
[2020-09-02] MEDS: SODIUM CHLORIDE 0.9% 1,000 ML IV SCH (15:49)
--- NOTE | 2020-09-02 16:01 | P.PN ---
Subjective Acute COVID-19 viral pneumonia Patient is a 50-year-old male with a known history of hypertension, GERD, lower GI bleed, right shoulder injury/pain presents to ER with complaints of generalized weakness and body aches and fever and chills and worsening shortness of breath for the past 4 days. Patient was seen at his PCPs office yesterday and tested for COVID-19 which came out positive. Patient states that he developed shortness of breath this morning and his pulse ox was 88% on room air. Patient presented to ER for evaluation. 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 No complaints of chest pain. No nausea vomiting or abdominal pain or diarrhea. Denied any loss of smell. Patient did have headache this morning. Currently denies any headache. Chest x-ray showed bilateral pneumonia. EKG showed normal sinus rhythm Laboratory data showed lymphocyte count 0.7, WBC 9.3, D-dimer 0.38 Bicarb is 35 Lactic acid 2.6 Magnesium 1.7, ferritin 1161, AST 71 ALT 50 and LDH 1093 and CRP 142 Procalcitonin 0.24 08/16/2020 Patient is currently resting in bed comfortably. No complaints of chest pain or worsening shortness of breath. No acute distress. Awake alert when x3. Pat ient is currently requiring oxygen 5 L via nasal cannula. Patient has been febrile with T-max 101.7 Laboratory reviewed. Chest x-ray showed consistent with bilateral pneumonia. Currently being treated dexamethasone, Lovenox and remdesivir. Patient is also on antibiotics in the form of azithromycin. Pulmonary is on board. 08/17/2020 Patient is awake alert oriented x3. Still requiring oxygen at 5 L via nasal cannula. T-max is 99.2 patient has been afebrile currently. No nausea vomiting or abdominal pain or diarrhea. Chest x-ray showed limited exam demonstrates multifocal airspace disease correlate for pneumonia. Patient is being continued on remdesivir day 3. 08/18/2020 Patient respiratory status appears to be worsening and patient is presently on 10 L of oxygen patient will be closely monitored and the patient continues to be on Decadron and did receive remdesivir and plasma.patient doesn't appear to be doing well at this time. Still short of breath on 10 L of oxygen and saturating atlow 90s and patient is presently on Lovenox 40 mg subcutaneous. D-dimer is 0.74, chest x-ray continues to show significant bilateral infiltrate. 08/19/2020 Patient respiratory status has worsened patient remains on Decadron and the patient was transferred to ICU presently on FiO2 of 50% and flow of around 60 L per minute. Patient is not in respiratory distress. 08/20/2020 Patient remains on airvo , 60 L of oxygenchest x-ray showing diffuse interstitial infiltrates, LDH and other included markers are bit worse compared to yesterday. Finished course of remdesivir, received 1 unit of convalescent plasma. 08/21/2020 Patient can use when 69 as follows although saturations are bit better his LDH is coming down inflammatory markers seem to be getting better. 08/22/2020 Patient chest x-ray episode significant infiltrate patient remains on 6 L frogs and along with as needed Ventimask. 08/23/2020 Patient clinical condition did not change much. Patient is being started on Toclizumab to my monoclonal antibody for IL-6 receptor. 08/24/2020 Patient feels marginally better, patient remains in the 50 L of oxygen today patient has IL-6 level that was elevated and patient is on monoclonal antibody for that. 08/25/2020 Patient feels bit better. Patient remains on 50 L of oxygen. Patient was started on gentle hydration patient is bit hyponatremic probably secondary to hypovolemia . 08/26 2020 patient remains on the 45 L of oxygen, IV normal saline.her serum creatinine remained stable continue with IV normal saline.completed treatment with Remdesivir, convalescent plasma and Toclizumab 08/27/2020 Patient remains on 45 L of oxygen 08/28/2020 Patient's potassium is elevated serum sodium is 132. 08/29/2020 Patient's overall clinical condition is bit worse today and patient is presently on 55 L of oxygen. Patient is being started on Solu-Medrol 08/30/2020 Patient's inflammatory markers are bit down except for LDH which is bit elevated. Patient remains on the 55 L of oxygen. all that maybe minimal improvement patient is sitting in the chair. Patient has mild hyponatremia and elevated white blood cell count 2 27,000 has been slowly going up because of the systemic steroids presently not on any antibiotics. 08/31/2020 Patient's serum sodium remained stable at 130. Respiratory status is fairly stable. Patient slept well last night with Ambien. Patient feels better. Hopefully we will be able to wean him off oxygen presently on the 55 L of oxygen which remained stable compared to yesterday 09/01/2020 Sodium improved white blood cell count continue to go up actually better compared to yesterday secondary to systemic steroids. 09/02/2020 Patient's blood cell count remains stable. Patient is presently on 35 L of oxygen. Feels better. Constitutional: Denied any fatigue denied any fever. Cardio vascular: denied any chest pain, palpitations Gastrointestinal denied any nausea vomiting Pulmonary: Denied any shortness of breath Neurologic denied any new focal deficits All inpatient medications were reviewed and appropriate changes in these medi cations as dictated in the interval history and assessment and plan. Objective - Vital Signs Vital signs: Vital Signs Temp 99.4 F 09/02/20 14:39 Pulse 106 H 09/02/20 14:39 Resp 22 09/02/20 14:39 BP 151/92 09/02/20 14:39 Pulse Ox 90 L 09/02/20 14:39 Intake & Output 09/01/20 09/02/20 09/02/20 18:59 06:59 18:59 Intake Total 500 Balance 500 Intake: Oral 500 - Exam PHYSICAL EXAMINATION: GENERAL: The patient is alert and oriented x3, patient is not in respiratory distress on 35 L of oxygen. Well developed, well nourished. HEENT: Pupils are round and equally reacting to light. EOMI. No scleral icterus. No conjunctival pallor. Normocephalic, atraumatic. No pharyngeal erythema. No thyromegaly. CARDIOVASCULAR: S1 and S2 present. No murmurs, rubs, or gallops. PULMONARY: Chest is clear to auscultation, no wheezing or crackles. ABDOMEN: Soft, nontender, nondistended, normoactive bowel sounds. No palpable organomegaly. MUSCULOSKELETAL: No joint swelling or deformity. EXTREMITIES: No cyanosis, clubbing, or pedal edema. NEUROLOGICAL: Gross neurological examination did not reveal any focal deficits. SKIN: No rashes. Note: Because of COVID 19 isolation, some of the history and physical exam findings are indirect and obtained from nursing staff, and other physician examinations to avoid unnecessary contact with the patient. - Labs CBC & Chem 7: 09/02/20 05:42 09/02/20 05:42 Labs: Abnormal Lab Results - Last 24 Hours (Table) 09/02/20 09/02/20 09/02/20 Range/Units 05:42 05:42 05:42 WBC 31.2 H (3.8-10.6) k/uL RBC 4.03 L (4.30-5.90) m/uL Hgb 12.3 L (13.0-17.5) gm/dL Hct 38.6 L (39.0-53.0) % Neutrophils # (Manual) 26.83 H (1.3-7.7) k/uL Monocytes # (Manual) 1.56 H (0-1.0) k/uL Metamyelocytes # (Man) 0.31 H (0) k/uL Myelocytes # (Manual) 0.94 H (0) k/uL D-Dimer 0.80 H (<0.60) mg/L FEU Chloride 95 L (96-109) mmol/L Carbon Dioxide 33.8 H (21.6-31.8) mmol/L BUN/Creatinine Ratio 30.00 H (12.00-20.00) Ratio Glucose 223 H (70-110) mg/dL AST 37 H (14-35) U/L ALT 100 H (10-49) U/L Alkaline Phosphatase 145 H (41-126) U/L Lactate Dehydrogenase 374 H (120-246) U/L Total Protein 5.8 L (6.2-8.2) g/dL Assessment and Plan Plan: Acute COVID-19 viral pneumoniacan use oxygen support close monitoring if needed. Patient is presently on 35 L of oxygen completed Decadron 6 mg on Lovenox 40 mg and patient had 4 days of Remdesivir . 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
--- NOTE | 2020-09-02 17:06 | P.PN ---
Subjective Progress Note Date: 09/02/20 Principal diagnosis: CoVID 19 pneumonia The patient is seen today 09/02/2020 in follow-up on the regular medical floor. He is awake and alert in no acute distress. He's been up ambulating in his room. He is currently maintaining O2 saturation in the low 90s on 35 L and 55% FiO2 via AirVo high flow oxygen. He is gradually improving. He has completed his course of Remdesivir, 10 days of dexamethasone, 2 units of convalescent plasma. Remains on Lovenox 60 mg subcu every 12 hours. Currently on IV Solu- Medrol, Symbicort and albuterol. Continued on vitamin supplements, Pepcid and melatonin. White count 31.2. Hemoglobin 12.3. Lymphocytes 2.18. D-dimer 0.8. Sodium 136. Potassium 4.9. Creatinine 0.8. LDH 374. C-reactive protein less than 0.4. Pro calcitonin 0.04. Objective - Vital Signs Vital signs: Vital Signs Temp 99.4 F 09/02/20 14:39 Pulse 106 H 09/02/20 14:39 Resp 22 09/02/20 14:39 BP 151/92 09/02/20 14:39 Pulse Ox 90 L 09/02/20 16:05 Intake & Output 09/01/20 09/02/20 09/02/20 18:59 06:59 18:59 Intake Total 500 Balance 500 Intake: Oral 500 - Exam GENERAL EXAM: Alert, pleasant 50-year-old gentleman, onAirVo at 35 L and 55% FiO2, fairly comfortable in no apparent distress. HEAD: Normocephalic. EYES: Normal reaction of pupils, equal size. NOSE: Clear with pink turbinates. THROAT: No erythema or exudates. NECK: No masses, no JVD. CHEST: No chest wall deformity. LUNGS: Equal air entry with basilar crackles. CVS: S1 and S2 normal with no audible murmur, regular rhythm. ABDOMEN: No hepatosplenomegaly, normal bowel sounds, no guarding or rigidity. SPINE: No scoliosis or deformity SKIN: No rashes CENTRAL NERVOUS SYSTEM: No focal deficits, tone is normal in all 4 extremities. EXTREMITIES: There is no peripheral edema. No clubbing, no cyanosis. Peripheral pulses are intact. - Labs CBC & Chem 7: 09/02/20 05:42 09/02/20 05:42 Labs: Abnormal Lab Results - Last 24 Hours (Table) 09/02/20 09/02/20 09/02/20 Range/Units 05:42 05:42 05:42 WBC 31.2 H (3.8-10.6) k/uL RBC 4.03 L (4.30-5.90) m/uL Hgb 12.3 L (13.0-17.5) gm/dL Hct 38.6 L (39.0-53.0) % Neutrophils # (Manual) 26.83 H (1.3-7.7) k/uL Monocytes # (Manual) 1.56 H (0-1.0) k/uL Metamyelocytes # (Man) 0.31 H (0) k/uL Myelocytes # (Manual) 0.94 H (0) k/uL D-Dimer 0.80 H (<0.60) mg/L FEU Chloride 95 L (96-109) mmol/L Carbon Dioxide 33.8 H (21.6-31.8) mmol/L BUN/Creatinine Ratio 30.00 H (12.00-20.00) Ratio Glucose 223 H (70-110) mg/dL AST 37 H (14-35) U/L ALT 100 H (10-49) U/L Alkaline Phosphatase 145 H (41-126) U/L Lactate Dehydrogenase 374 H (120-246) U/L Total Protein 5.8 L (6.2-8.2) g/dL Assessment and Plan Assessment: 1 Acute hypoxic respiratory failure related to acute COVID19 related pneumonia, tested positive for Covid 19 on 08/14/2020, started on Remdesivir on 08/15/2020, received convalescent plasma 2 2 Elevated inflammatory markers related to the above, improved 3 Mild lactic acidosis, improved with IV hydration 4 Febrile illness, body aches, dyspnea, related to viral pneumonia secondary to Covid 19, improved 5 History of anxiety/panic disorder 6 Lifetime nonsmoker 7 Hypertension 8 Chronic pain 9 GERD/reflux Plan: The patient was seen and evaluated by Dr. Modi Improving from the pulmonary standpoint Titrate FiO2 as tolerated Continue bronchodilators Continue isolation precautions We'll continue to follow I, the cosigning physician, performed a history & physical examination of the patient. Lungs sounds bilateral crackles. Maintaining good O2 saturations in the 90s on AirVo 35L AND 55% FIO2. I discussed the assessment and plan of care with my nurse practitioner, Kalie Talbert. I attest to the above note as dictated by her.
[2020-09-02] MEDS: MELATONIN 5 MG TABLET PO SCH (20:48)
[2020-09-02] MEDS: ZOLPIDEM 10 MG TAB PO PRN (20:52)
[2020-09-02] MEDS: ALPRAZolam 0.25 MG TAB PO PRN (20:52)
[2020-09-03] MEDS: methylPREDNISolone SOD SUCCI 125 MG/2 ML VIAL IV SCH ×2 (00:02→07:43)
[2020-09-03] MEDS: ONDANSETRON 4 MG/2 ML VIAL IVP PRN ×2 (05:54→16:03)
[2020-09-03 06:30] LABS: Basophils % (A) 1 %; Eosinophils % (A) 0 %; HCT 38.6 % (39.0-53.0); HGB 12.6 gm/dL (13.0-17.5); Lymphocytes # (A) 1.9 k/uL (1.0-4.8); Lymphocytes % (A) 6 %; MCH 31.3 pg (25.0-35.0); MCHC 32.6 g/dL (31.0-37.0); MCV 95.9 fL (80.0-100.0); Mean Platelet Volume 6.6; Monocytes # (A) 1.9 k/uL (0-1.0); Monocytes % (A) 6 %; Neutrophils # (A) 25.3 k/uL (1.3-7.7); Neutrophils % (A) 85 %; Platelet Count 379 k/uL (150-450); RBC 4.02 m/uL (4.30-5.90); WBC 29.6 k/uL (3.8-10.6)
[2020-09-03 06:31] LABS: Basophils # (A) 0.3 k/uL (0-0.2)
[2020-09-03] MEDS: SENNOSIDES 8.6 MG TAB PO SCH ×2 (07:44→19:59)
[2020-09-03] MEDS: amLODIPine 5 MG TAB PO SCH (07:44)
[2020-09-03] MEDS: DULoxetine HCL 60 MG CAPSULE.DR PO SCH (07:44)
[2020-09-03] MEDS: ZINC SULFATE 220 MG CAP PO SCH (07:44)
[2020-09-03] MEDS: CHOLECALCIFEROL 1,000 UNIT TAB PO SCH (07:44)
[2020-09-03] MEDS: ASCORBIC ACID 500 MG TAB PO SCH (07:44)
[2020-09-03] MEDS: FAMOTIDINE 20 MG TAB PO SCH ×2 (07:44→19:59)
[2020-09-03] MEDS: ENOXAPARIN 60 MG/0.6 ML SYRINGE SQ SCH ×2 (07:45→19:59)
[2020-09-03] MEDS: ALBUTEROL HFA INHALER INHALATION SCH ×4 (08:37→19:37)
[2020-09-03] MEDS: SYMBICORT 160-4.5 MCG INHALER INHALATION SCH ×2 (08:37→19:37)
[2020-09-03 10:06] LABS: ALT 139 U/L (10-49); AST 42 U/L (14-35); African American GFR (CKD) 121.6 (60.0-200.0); Albumin/Globulin Ratio 1.81 (1.60-3.17); Alkaline Phosphatase 157 U/L (41-126); BUN/Creat Ratio 33.75 Ratio (12.00-20.00); C Reactive Protein <0.4 mg/dL (0.0-0.8); Calcium 9.5 mg/dL (8.7-10.3); Carbon Dioxide 33.1 mmol/L (21.6-31.8); Chloride 95 mmol/L (96-109); Globulin 2.1 g/dL (1.6-3.3); Glucose 253 mg/dL (70-110); LDH 408 U/L (120-246); Non-African American GFR(CKD) 104.9 (60.0-200.0); Potassium 5.4 mmol/L (3.5-5.5); Sodium 135 mmol/L (135-145); Total Bilirubin 0.3 mg/dL (0.3-1.2); Total Protein 5.9 g/dL (6.2-8.2)
--- NOTE | 2020-09-03 13:10 | P.PN ---
Subjective Acute COVID-19 viral pneumonia Patient is a 50-year-old male with a known history of hypertension, GERD, lower GI bleed, right shoulder injury/pain presents to ER with complaints of generalized weakness and body aches and fever and chills and worsening shortness of breath for the past 4 days. Patient was seen at his PCPs office yesterday and tested for COVID-19 which came out positive. Patient states that he developed shortness of breath this morning and his pulse ox was 88% on room air. Patient presented to ER for evaluation. 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 No complaints of chest pain. No nausea vomiting or abdominal pain or diarrhea. Denied any loss of smell. Patient did have headache this morning. Currently denies any headache. Chest x-ray showed bilateral pneumonia. EKG showed normal sinus rhythm Laboratory data showed lymphocyte count 0.7, WBC 9.3, D-dimer 0.38 Bicarb is 35 Lactic acid 2.6 Magnesium 1.7, ferritin 1161, AST 71 ALT 50 and LDH 1093 and CRP 142 Procalcitonin 0.24 08/16/2020 Patient is currently resting in bed comfortably. No complaints of chest pain or worsening shortness of breath. No acute distress. Awake alert when x3. Pat ient is currently requiring oxygen 5 L via nasal cannula. Patient has been febrile with T-max 101.7 Laboratory reviewed. Chest x-ray showed consistent with bilateral pneumonia. Currently being treated dexamethasone, Lovenox and remdesivir. Patient is also on antibiotics in the form of azithromycin. Pulmonary is on board. 08/17/2020 Patient is awake alert oriented x3. Still requiring oxygen at 5 L via nasal cannula. T-max is 99.2 patient has been afebrile currently. No nausea vomiting or abdominal pain or diarrhea. Chest x-ray showed limited exam demonstrates multifocal airspace disease correlate for pneumonia. Patient is being continued on remdesivir day 3. 08/18/2020 Patient respiratory status appears to be worsening and patient is presently on 10 L of oxygen patient will be closely monitored and the patient continues to be on Decadron and did receive remdesivir and plasma.patient doesn't appear to be doing well at this time. Still short of breath on 10 L of oxygen and saturating atlow 90s and patient is presently on Lovenox 40 mg subcutaneous. D-dimer is 0.74, chest x-ray continues to show significant bilateral infiltrate. 08/19/2020 Patient respiratory status has worsened patient remains on Decadron and the patient was transferred to ICU presently on FiO2 of 50% and flow of around 60 L per minute. Patient is not in respiratory distress. 08/20/2020 Patient remains on airvo , 60 L of oxygenchest x-ray showing diffuse interstitial infiltrates, LDH and other included markers are bit worse compared to yesterday. Finished course of remdesivir, received 1 unit of convalescent plasma. 08/21/2020 Patient can use when 69 as follows although saturations are bit better his LDH is coming down inflammatory markers seem to be getting better. 08/22/2020 Patient chest x-ray episode significant infiltrate patient remains on 6 L frogs and along with as needed Ventimask. 08/23/2020 Patient clinical condition did not change much. Patient is being started on Toclizumab to my monoclonal antibody for IL-6 receptor. 08/24/2020 Patient feels marginally better, patient remains in the 50 L of oxygen today patient has IL-6 level that was elevated and patient is on monoclonal antibody for that. 08/25/2020 Patient feels bit better. Patient remains on 50 L of oxygen. Patient was started on gentle hydration patient is bit hyponatremic probably secondary to hypovolemia . 08/26 2020 patient remains on the 45 L of oxygen, IV normal saline.her serum creatinine remained stable continue with IV normal saline.completed treatment with Remdesivir, convalescent plasma and Toclizumab 08/27/2020 Patient remains on 45 L of oxygen 08/28/2020 Patient's potassium is elevated serum sodium is 132. 08/29/2020 Patient's overall clinical condition is bit worse today and patient is presently on 55 L of oxygen. Patient is being started on Solu-Medrol 08/30/2020 Patient's inflammatory markers are bit down except for LDH which is bit elevated. Patient remains on the 55 L of oxygen. all that maybe minimal improvement patient is sitting in the chair. Patient has mild hyponatremia and elevated white blood cell count 2 27,000 has been slowly going up because of the systemic steroids presently not on any antibiotics. 08/31/2020 Patient's serum sodium remained stable at 130. Respiratory status is fairly stable. Patient slept well last night with Ambien. Patient feels better. Hopefully we will be able to wean him off oxygen presently on the 55 L of oxygen which remained stable compared to yesterday 09/01/2020 Sodium improved white blood cell count continue to go up actually better compared to yesterday secondary to systemic steroids. 09/02/2020 Patient's blood cell count remains stable. Patient is presently on 35 L of oxygen. Feels better. 09/03/2020 Patient is presently on 10 L of oxygen significant improvement. Hopefully patient will be off oxygen in couple days Constitutional: Denied any fatigue denied any fever. Cardio vascular: denied any chest pain, palpitations Gastrointestinal denied any nausea vomiting Pulmonary: Denied any shortness of breath Neurologic denied any new focal deficits All inpatient medications were reviewed and appropriate changes in these medications as dictated in the interval history and assessment and plan. Objective - Vital Signs Vital signs: Vital Signs Temp 98.1 F 09/03/20 10:00 Pulse 105 H 09/03/20 10:00 Resp 18 09/03/20 10:00 BP 149/103 09/03/20 10:00 Pulse Ox 92 L 09/03/20 12:28 Intake & Output 09/02/20 09/03/20 09/03/20 18:59 06:59 18:59 Output Total 0 Balance 0 Weight 134.3 kg Output: Urine 0 Other: Voiding Method Toilet # Voids 0 - Exam PHYSICAL EXAMINATION: GENERAL: The patient is alert and oriented x3, patient is not in respiratory distress on 35 L of oxygen. Well developed, well nourished. HEENT: Pupils are round and equally reacting to light. EOMI. No scleral icterus. No conjunctival pallor. Normocephalic, atraumatic. No pharyngeal erythema. No thyromegaly. CARDIOVASCULAR: S1 and S2 present. No murmurs, rubs, or gallops. PULMONARY: Chest is clear to auscultation, no wheezing or crackles. ABDOMEN: Soft, nontender, nondistended, normoactive bowel sounds. No palpable organomegaly. MUSCULOSKELETAL: No joint swelling or deformity. EXTREMITIES: No cyanosis, clubbing, or pedal edema. NEUROLOGICAL: Gross neurological examination did not reveal any focal deficits. SKIN: No rashes. Note: Because of COVID 19 isolation, some of the history and physical exam findings are indirect and obtained from nursing staff, and other physician examinations to avoid unnecessary contact with the patient. - Labs CBC & Chem 7: 09/03/20 05:39 09/03/20 05:39 Labs: Abnormal Lab Results - Last 24 Hours (Table) 09/03/20 09/03/20 09/03/20 Range/Units 05:39 05:39 05:39 WBC 29.6 H (3.8-10.6) k/uL RBC 4.02 L (4.30-5.90) m/uL Hgb 12.6 L (13.0-17.5) gm/dL Hct 38.6 L (39.0-53.0) % Neutrophils # 25.3 H (1.3-7.7) k/uL Monocytes # 1.9 H (0-1.0) k/uL Basophils # 0.3 H (0-0.2) k/uL D-Dimer 0.68 H (<0.60) mg/L FEU Chloride 95 L (96-109) mmol/L Carbon Dioxide 33.1 H (21.6-31.8) mmol/L BUN/Creatinine Ratio 33.75 H (12.00-20.00) Ratio Glucose 253 H (70-110) mg/dL AST 42 H (14-35) U/L ALT 139 H (10-49) U/L Alkaline Phosphatase 157 H (41-126) U/L Lactate Dehydrogenase 408 H (120-246) U/L Total Protein 5.9 L (6.2-8.2) g/dL Assessment and Plan Plan: Acute COVID-19 viral pneumoniacan use oxygen support close monitoring if needed. Patient is presently on 35 L of oxygen completed Decadron 6 mg on Lovenox 40 mg and patient had 4 days of Remdesivir . 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
--- NOTE | 2020-09-03 15:41 | P.PN ---
Subjective Progress Note Date: 09/03/20 Principal diagnosis: CoVID 19 pneumonia The patient is seen today 09/02/2020 in follow-up on the regular medical floor. He is awake and alert in no acute distress. He's been up ambulating in his room. He is currently maintaining O2 saturation in the low 90s on 35 L and 55% FiO2 via AirVo high flow oxygen. He is gradually improving. He has completed his course of Remdesivir, 10 days of dexamethasone, 2 units of convalescent plasma. Remains on Lovenox 60 mg subcu every 12 hours. Currently on IV Solu- Medrol, Symbicort and albuterol. Continued on vitamin supplements, Pepcid and melatonin. White count 31.2. Hemoglobin 12.3. Lymphocytes 2.18. D-dimer 0.8. Sodium 136. Potassium 4.9. Creatinine 0.8. LDH 374. C-reactive protein less than 0.4. Pro calcitonin 0.04. The patient is seen today 09/03/2020 in follow-up on the regular medical floor. He's been up ambulating in his room. Improving daily. He has been switched from the airflow high flow oxygen device to 15 L high flow nasal cannula. He is currently afebrile. White count 29.6. Hemoglobin 12.6. Lymphocytes 1.9. D- dimer 0.68. Sodium 135. Potassium 5.4. Creatinine 0.8. AST 42. A LT 139. LDH 408. C-reactive protein less than 0.4. Objective - Vital Signs Vital signs: Vital Signs Temp 98.7 F 09/03/20 14:54 Pulse 111 H 09/03/20 14:54 Resp 17 09/03/20 14:54 BP 144/87 09/03/20 14:54 Pulse Ox 89 L 09/03/20 14:54 Intake & Output 09/02/20 09/03/20 09/03/20 18:59 06:59 18:59 Output Total 0 Balance 0 Weight 134.3 kg Output: Urine 0 Other: Voiding Method Toilet # Voids 0 - Exam GENERAL EXAM: Alert, pleasant 50-year-old gentleman, 15 L high flow nasal cannula, comfortable in no apparent distress. HEAD: Normocephalic. EYES: Normal reaction of pupils, equal size. NOSE: Clear with pink turbinates. THROAT: No erythema or exudates. NECK: No masses, no JVD. CHEST: No chest wall deformity. LUNGS: Equal air entry with basilar crackles. CVS: S1 and S2 normal with no audible murmur, regular rhythm. ABDOMEN: No hepatosplenomegaly, normal bowel sounds, no guarding or rigidity. SPINE: No scoliosis or deformity SKIN: No rashes CENTRAL NERVOUS SYSTEM: No focal deficits, tone is normal in all 4 extremities. EXTREMITIES: There is no peripheral edema. No clubbing, no cyanosis. Peripheral pulses are intact. - Labs CBC & Chem 7: 09/03/20 05:39 09/03/20 05:39 Labs: Abnormal Lab Results - Last 24 Hours (Table) 09/03/20 09/03/20 09/03/20 Range/Units 05:39 05:39 05:39 WBC 29.6 H (3.8-10.6) k/uL RBC 4.02 L (4.30-5.90) m/uL Hgb 12.6 L (13.0-17.5) gm/dL Hct 38.6 L (39.0-53.0) % Neutrophils # 25.3 H (1.3-7.7) k/uL Monocytes # 1.9 H (0-1.0) k/uL Basophils # 0.3 H (0-0.2) k/uL D-Dimer 0.68 H (<0.60) mg/L FEU Chloride 95 L (96-109) mmol/L Carbon Dioxide 33.1 H (21.6-31.8) mmol/L BUN/Creatinine Ratio 33.75 H (12.00-20.00) Ratio Glucose 253 H (70-110) mg/dL AST 42 H (14-35) U/L ALT 139 H (10-49) U/L Alkaline Phosphatase 157 H (41-126) U/L Lactate Dehydrogenase 408 H (120-246) U/L Total Protein 5.9 L (6.2-8.2) g/dL Assessment and Plan Assessment: 1 Acute hypoxic respiratory failure related to acute COVID19 related pneumonia, tested positive for Covid 19 on 08/14/2020, completed Remdesivir, received convalescent plasma 2, received Tocilizumab 2 Elevated inflammatory markers related to the above, improved 3 Mild lactic acidosis, improved with IV hydration 4 Febrile illness, body aches, dyspnea, related to viral pneumonia secondary to Covid 19, improved 5 History of anxiety/panic disorder 6 Lifetime nonsmoker 7 Hypertension 8 Chronic pain 9 GERD/reflux Plan: The patient was seen and evaluated by Dr. Modi Converted from the AirVo high flow oxygen device to high flow nasal cannula Titrate FiO2 as tolerated Continue bronchodilators Discontinue IV Solu-Medrol Initiate prednisone at 30 mg daily Increase his activity as tolerated Continue isolation precautions We'll continue to follow I, the cosigning physician, performed a history & physical examination of the patient. Lungs sounds bilateral crackles. Maintaining good O2 saturations in the 90s on 15 L high flow nasal cannula. I discussed the assessment and plan of care with my nurse practitioner, Kalie Talbert. I attest to the above note as dictated by her.
[2020-09-03] MEDS: ALPRAZolam 0.25 MG TAB PO PRN (19:59)
[2020-09-03] MEDS: MELATONIN 5 MG TABLET PO SCH (19:59)
[2020-09-03] MEDS: ZOLPIDEM 10 MG TAB PO PRN (19:59)
[2020-09-03] MEDS: SODIUM CHLORIDE 0.9% 1,000 ML IV SCH (22:49)
[2020-09-04 07:12] LABS: HCT 40.2 % (39.0-53.0); HGB 13.5 gm/dL (13.0-17.5); MCH 31.7 pg (25.0-35.0); MCHC 33.5 g/dL (31.0-37.0); MCV 94.7 fL (80.0-100.0); Mean Platelet Volume 6.8; Platelet Count 364 k/uL (150-450); RBC 4.24 m/uL (4.30-5.90)
[2020-09-04] MEDS: SENNOSIDES 8.6 MG TAB PO SCH (07:31)
[2020-09-04] MEDS: ENOXAPARIN 60 MG/0.6 ML SYRINGE SQ SCH (07:31)
[2020-09-04] MEDS: FAMOTIDINE 20 MG TAB PO SCH (07:31)
[2020-09-04] MEDS: ZINC SULFATE 220 MG CAP PO SCH (07:31)
[2020-09-04] MEDS: CHOLECALCIFEROL 1,000 UNIT TAB PO SCH (07:32)
[2020-09-04] MEDS: amLODIPine 5 MG TAB PO SCH (07:32)
[2020-09-04] MEDS: ASCORBIC ACID 500 MG TAB PO SCH (07:32)
[2020-09-04] MEDS: DULoxetine HCL 60 MG CAPSULE.DR PO SCH (07:32)
[2020-09-04 08:29] LABS: Eosinophils # (M) 0.26 k/uL (0-0.7); Monocytes # (M) 2.82 k/uL (0-1.0); Myelocytes # (M) 0.26 k/uL (0); Myelocytes % 1 %; Neutrophils # (M) 20.48 k/uL (1.3-7.7); Neutrophils % (M) 80 %; Nucleated Red Blood Cells 2 /100 WBC (0-0); Total Cells Counted 200; WBC 25.6 k/uL (3.8-10.6)
[2020-09-04] MEDS ORDERED: predniSONE 10 MG TAB PO SCH (09:00)
[2020-09-04] MEDS: ONDANSETRON 4 MG/2 ML VIAL IVP PRN (09:06)
[2020-09-04] MEDS: ALBUTEROL HFA INHALER INHALATION SCH ×2 (09:14→12:43)
[2020-09-04] MEDS: SYMBICORT 160-4.5 MCG INHALER INHALATION SCH (09:14)
[2020-09-04 09:50] LABS: ALT 207 U/L (10-49); AST 78 U/L (14-35); African American GFR (CKD) 115.8 (60.0-200.0); Albumin/Globulin Ratio 1.95 (1.60-3.17); Alkaline Phosphatase 161 U/L (41-126); BUN/Creat Ratio 31.11 Ratio (12.00-20.00); C Reactive Protein <0.4 mg/dL (0.0-0.8); Calcium 9.2 mg/dL (8.7-10.3); Carbon Dioxide 29.4 mmol/L (21.6-31.8); Chloride 96 mmol/L (96-109); Glucose 118 mg/dL (70-110); LDH 546 U/L (120-246); Non-African American GFR(CKD) 99.9 (60.0-200.0); Potassium 4.5 mmol/L (3.5-5.5); Sodium 135 mmol/L (135-145); Total Bilirubin 0.4 mg/dL (0.3-1.2); Total Protein 5.9 g/dL (6.2-8.2)
--- NOTE | 2020-09-04 09:52 | XR ---
EXAMINATION TYPE: XR chest 1V portable DATE OF EXAM: 09/04/2020 CLINICAL HISTORY: COVID pneumonia. TECHNIQUE: Portable frontal view of the chest. COMPARISON: 09/01/2020 chest radiograph FINDINGS: Patchy airspace opacities of the bilateral lungs are moderately decreased versus 09/01/2020 . No pneumothorax or sizable pleural effusion. The cardiomediastinal silhouette is unchanged. IMPRESSION: Moderately decreased airspace opacities of the bilateral lungs, with improved aeration v ersus 09/01/2020. Findings are consistent with Covid 19 viral infection.
[2020-09-04 09:54] VITALS: BP 137/83; PULSE 116; RESP 18; TEMP 98.4
[2020-09-04] MEDS: ALPRAZolam 0.25 MG TAB PO PRN (11:54)
--- NOTE | 2020-09-04 15:36 | P.DS ---
Providers Date of admission: 08/15/20 12:58 Attending physician: Don Allen MD Consults: 08/15/20 13:15 Consult Physician Stat Consulting Provider: Rj Mayen Consult Reason/Comments: Covid, Pneumonia, hypoxia Do you want consulting provider notified?: Yes Primary care physician: Meera [facility] Course: 50-year-old pleasant gentleman admitted for Covid 19 infection patient went into respiratory failure patient has severe bilateral pneumonia secondary to coronavirus. Patient had prolonged hospitalization and ICU requiring about 60 L of oxygen via Airvo, patient received the prolonged duration of Decadron, followed by Solu-Medrol completed courses of Remdesivir, Toclizumab, convalescent plasma. We're able to wean him off up to 3 L and patient is being discharged on 3 L of oxygen to home. PHYSICAL EXAMINATION: GENERAL: The patient is alert and oriented x3, patient is not in respiratory distress on 35 L of oxygen. Well developed, well nourished. HEENT: Pupils are round and equally reacting to light. EOMI. No scleral icterus. No conjunctival pallor. Normocephalic, atraumatic. No pharyngeal erythema. No thyromegaly. CARDIOVASCULAR: S1 and S2 present. No murmurs, rubs, or gallops. PULMONARY: Chest is clear to auscultation, no wheezing or crackles. ABDOMEN: Soft, nontender, nondistended, normoactive bowel sounds. No palpable organomegaly. MUSCULOSKELETAL: No joint swelling or deformity. EXTREMITIES: No cyanosis, clubbing, or pedal edema. NEUROLOGICAL: Gross neurological examination did not reveal any focal deficits. SKIN: No rashes. Note: Because of COVID 19 isolation, some of the history and physical exam findings are indirect and obtained from nursing staff, and other physician examinations to avoid unnecessary contact with the patient. 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, improved Acute hypoxic respiratory failure secondary to COVID-19 viral infection, improved Sepsis, resolved Lactic acidosis resolved GERD Hypertension Patient Condition at Discharge: Stable Plan - Discharge Summary Discharge Rx Participant: No New Discharge Prescriptions: New methylPREDNISolone Dose Pack [Medrol Dose Pack] 4 mg PO DIRECTED #21 package ALPRAZolam [Xanax] 0.25 mg PO Q8HR PRN 3 Days #9 tab PRN Reason: Anxiety Famotidine [Pepcid] 20 mg PO BID #20 tablet Albuterol Inhaler [Ventolin Hfa Inhaler] 2 puff INHALATION RT-QID #1 inhaler Continue Buprenorphine HCl/Naloxone HCl [Suboxone 8 mg-2 mg Sl Film] 1 film SUBLINGUAL DAILY amLODIPine [Norvasc] 5 mg PO DAILY DULoxetine HCL [Cymbalta] 60 mg PO DAILY Discontinued lisinopriL 40 mg PO DAILY predniSONE [Deltasone] 20 mg PO BID Discharge Medication List Buprenorphine HCl/Naloxone HCl [Suboxone 8 mg-2 mg Sl Film] 1 film SUBLINGUAL DAILY 08/15/20 [History] DULoxetine HCL [Cymbalta] 60 mg PO DAILY 08/15/20 [History] amLODIPine [Norvasc] 5 mg PO DAILY 08/15/20 [History] ALPRAZolam [Xanax] 0.25 mg PO Q8HR PRN 3 Days #9 tab 09/04/20 [Rx] Albuterol Inhaler [Ventolin Hfa Inhaler] 2 puff INHALATION RT-QID #1 inhaler 09/04/20 [Rx] Famotidine [Pepcid] 20 mg PO BID #20 tablet 09/04/20 [Rx] methylPREDNISolone Dose Pack [Medrol Dose Pack] 4 mg PO DIRECTED #21 package 09/04/20 [Rx] Follow up Appointment(s)/Referral(s): Rj Mayen MD [STAFF PHYSICIAN] - As Needed (patient to schedule appointment 3- 4 weeks after negative covid test ) Meera Dominguez MD [Primary Care Provider] - 3 Days (office not answering at time of discharge. Please call to make appointment ) [facility],Equipment [NON-STAFF] - (*Please call [facility] once home to arrange delivery for the oxygen concentrator. ) Patient Instructions/Handouts: Viral Pneumonia (DC) Discharge Disposition: HOME SELF-CARE
--- NOTE | 2020-09-04 16:00 | P.PN ---
Subjective Progress Note Date: 09/04/20 Principal diagnosis: Covid 19 related pneumonia This is a 50-year-old male patient who was admitted on 08/15/2024 hypoxic respiratory failure that was attributed to COVID 19 pneumonia . The patient progressively became more hypoxic, the patient got transferred to the intensive care units. The patient had impending respiratory failure and the patient was treated high flow oxygen which is currently being utilized at 55 L per minute and an FiO2 of 80%. The patient during his course of treatment has received convalescent plasma 2, Tocilizum and Remdesivir. . He also has received other supportive measures including a combination of Decadron, Pepcid, melatonin, vitamin C, vitamin D and zinc. He has done slow if any progress over the past few days. He remains in intensive care units. Chest x-ray remains unchanged with diffuse bilateral pulmonary infiltrates consistent with Covid 19 pneumonia. The white cell count is down to 14.4 The d-dimer was at 2.36 max blood work is showing a component of metabolic alkalosis with a serum bicarbonate above 30. Potassium level from yesterday was at 5. 7. The patient is on Lovenox 60 mg subcu every 12 hours. He is on Symbicort 160/4.52 puffs twice a day. He is also receiving albuterol HFA 4 times a day [id number]. IV fluids at the rate of 100 mL an hour. He reports that his condition is stable for now. There is no worsening shortness of breath a chest x-ray findings shows a stable by the pulmonary infiltrates per no interval change compared to yesterday. On today's evaluation of 08/19/2020, the patient is doing essentially the same compared to yesterday. He has very limited reserve and the patient desaturates easily with minimal amount of activity. I have a high flow oxygen at 55 L with an FiO2 of 80%. The patient's pulse is ranging between 80% and 91%. He is afebrile. He is having increased edema lower extremities bilaterally. He is on IV fluids at KVO at 20 she is an hour. Utilizing incentive spirometer and pulling approximately 1000 on his incentive spirometer.. I started him on pre dnisone yesterday and I think I'm going to transition to IV Solu-Medrol. Chest x-ray findings and essentially unchanged. The patient continues to be hemodynamically stable and alert and awake. Is feeling a bit weak and discouraged because of the prolonged course of the symptoms. He is tolerating diet. He is still in the intensive care units. On 08/30/2020, Lee this is essentially the same and unchanged is still struggling from his Covid 19 related pneumonia. Chest x-ray findings have been essentially stable and unchanged and the patient's oxygen requirements have also remain unchanged and the patient continues to be on high flow oxygen at 55 L along with 100% nonrebreather facemask. The patient desaturates easily even while talking. He is short of breath. He was given IV Lasix. His establish negative fluid balance and he feels less swollen lower extremities bilaterally. He was having some insomnia the patient was started on IV Solu Medrol. He tells me that he was unable to sleep throughout the night. His IV fluids currently running at KVO at 20 mL an hour. He has been receiving IV Solu Medrol 60 mg every 8 hours. He'll be receiving additional dose of Lasix today. No altered mentation. No nausea. No vomiting. No diarrhea. No abdominal pain. On 08/31/2020, the patient is a 55 of 85% in addition to the use of 100% on a beta facemask occasionally. He remains on IV Solu-Medrol 60 mg every 8 hours. He is feeling better. The chest x-ray is showing that she has bilateral pulmonary infiltrates and the findings are stable. Mother the white cell count is up to 34 and I think this is a steroid-induced effect. Platelet count is at 487. The patient has elevation in neutrophil counts. Less of the blood work essentially within normal limits. A pro calcitonin level will be ordered. Note that the patient's ferritin level is at 411. The CRP is less than 5 LDH from yesterday was 10/13/1995. Note that the patient patient hasn't significantly and has been on a negative fluid balance of 2.3 L over the past 24 hours. He did receive Ambien overnight and the patient had a good night sleep. No nausea. No vomiting. No fever. No other significant events otherwise for now. On 09/01/2020 patient seen in follow-up on general medical surgical floor. He was transferred out of intensive care unit yesterday, he remains on interval, FiO2 is being weaned, down to 50 L/m, and FiO2 of 54%, his pulse ox is between 88 and 90%, he is been up out of bed, ambulating to the bathroom, tolerating activity fairly well. His chest x-ray shows bilateral airspace disease. Today's labs having reviewed, showing white blood cell, 31.9, hemoglobin of 12.4, sodium of 133, potassium is 4.9, chloride is 95, CO2 32, BUN of 23, creatinine 0.8, his pro calcitonin is negative at 0.04, his last CRP was done on 08/31/2020 and was less than 5, and his last LDH was done on 08/31/2020, and was still significantly elevated at 1196. Remains on IV Solu-Medrol 60 mg every 8 hours, bronchodilators, On 09/04/2020 patient is seen in follow-up on the general medical surgical floor. He is up ambulating in the room, appears to be in no acute distress, tolerating activity well, no worsening dyspnea, he is currently on 3 L of oxygen, he does desaturate with the exertion, however clinically he denies any worsening dyspnea, his pulse ox on 3 L with activity is around 89%. We'll increase the FiO2 to 5 L, his vital signs remained stable, his been afebrile, no complaints of chest tightness, or chest discomfort. Today's chest x-ray has been reviewed showing moderately decreased airspace opacities of bilateral lungs, with improved aeration versus 09/01/2020. Patient has been transitioned over to oral prednisone currently on 30 mg daily, he status post Remdesivir course, 2 units of convalescent plasma, 2 doses of Tocilizumab. He is in good spirits. He denies any specific complaints, no nausea vomiting or diarrhea. His labs have been reviewed, showing downtrending white blood cell, of 25.6, hemoglobin of 13.5, d-dimer of 0.96, electrolytes and renal profile were unremarkable AST of 78, ALT of 207, alkaline phosphatase of 161, LDH of 546, improved from admission, CRP is less than 0.4. Pro calcitonin is negative at 0.04. Objective - Vital Signs Vital signs: Vital Signs Temp 98.4 F 09/04/20 09:54 Pulse 116 H 09/04/20 09:54 Resp 18 09/04/20 09:54 BP 137/83 09/04/20 09:54 Pulse Ox 80 L 09/04/20 09:54 Intake & Output 09/03/20 09/04/20 09/04/20 18:59 06:59 18:59 Output Total 0 Balance 0 Weight 134.3 kg Output: Urine 0 Other: Voiding Method Toilet Toilet # Voids 0 - Exam GENERAL EXAM: Alert, pleasant, 50-year-old white male, on 3l/min with pulse of 89% at rest, desaturates to 80% with activity however clinically patient is asymptomatic, tolerating ambulation well, comfortable in no apparent distress. HEAD: Normocephalic/atraumatic. EYES: Normal reaction of pupils, equal size. Conjunctiva pink, sclera white. NOSE: Clear with pink turbinates. THROAT: No erythema or exudates. NECK: No masses, no JVD, no thyroid enlargement, no adenopathy. CHEST: No chest wall deformity. Symmetrical expansion. LUNGS: Equal air entry with no crackles, wheeze, rhonchi or dullness. CVS: Regular rate and rhythm, normal S1 and S2, no gallops, no murmurs, no rubs ABDOMEN: Soft, nontender. No hepatosplenomegaly, normal bowel sounds, no guarding or rigidity. EXTREMITIES: No clubbing, no edema, no cyanosis, 2+ pulses and upper and lower extremities. MUSCULOSKELETAL: Muscle strength and tone normal. SPINE: No scoliosis or deformity SKIN: No rashes CENTRAL NERVOUS SYSTEM: Alert and oriented -3. No focal deficits, tone is normal in all 4 extremities. PSYCHIATRIC: Alert and oriented -3. Appropriate affect. Intact judgment and insight. - Labs CBC & Chem 7: 09/04/20 06:14 09/04/20 06:14 Labs: Abnormal Lab Results - Last 24 Hours (Table) 09/04/20 09/04/20 09/04/20 Range/Units 06:14 06:14 06:14 WBC 25.6 H (3.8-10.6) k/uL RBC 4.24 L (4.30-5.90) m/uL Neutrophils # (Manual) 20.48 H (1.3-7.7) k/uL Monocytes # (Manual) 2.82 H (0-1.0) k/uL Myelocytes # (Manual) 0.26 H (0) k/uL Nucleated RBCs 2 H (0-0) /100 WBC D-Dimer 0.96 H (<0.60) mg/L FEU BUN 28.0 H (9.0-27.0) mg/dL BUN/Creatinine Ratio 31.11 H (12.00-20.00) Ratio Glucose 118 H (70-110) mg/dL AST 78 H (14-35) U/L ALT 207 H (10-49) U/L Alkaline Phosphatase 161 H (41-126) U/L Lactate Dehydrogenase 546 H (120-246) U/L Total Protein 5.9 L (6.2-8.2) g/dL Assessment and Plan Plan: Assessment: #1. Acute hypoxic respiratory failure related to acute COVID19 related pneumonia, tested positive for Covid 19 on 08/14/2020, started on Remdesivir on 08/15/2020. Patient has received 2 doses of convalescent plasma and Tocilizumab. He is hypoxemic respiratory failure became progressively worse, requiring Airvo with high flow oxygen, gradually has improved, chest x-ray findings relatively stable, with bilateral airspace disease, remains on IV Solu- Medrol On 09/04/2020 patient has significantly improved since admission, chest x-ray shows improvement in aeration of bilateral lungs, with improvement in the appearance of bilateral infiltrates, oxygenation has significantly improved, and patient is currently down to 3 L of oxygen, the pulse ox of around 89%, patient is ambulating, tolerating activity well, vital signs have been stable, he status post Remdesivir treatment, 2 units of convalescent plasma, Tocilizumab, steroids #2. Elevated inflammatory markers related to the above #3. Mild lactic acidosis, improved with IV hydration #4. Febrile illness, body aches, dyspnea, related to viral pneumonia secondary to Covid 19 #5. History of anxiety/panic disorder #6. Lifetime nonsmoker #7. Hypertension #8. Chronic pain #9. GERD/reflux #10. History of GI bleeding and gastric ulcer #11. Metabolic alkalosis #12. Leukocytosis, improving, steroid induced, will calcitonin level was negative #13. Hyperlipidemia Plan: No worsening dyspnea, FiO2 is down to 3 L, patient is tolerating ambulation, does desaturate with activity, but no acute distress. Vital signs have been stable overnight, no fever or chills, his x-ray shows improvement in the appearance of bilateral infiltrates. From pulmonary perspective patient is stable for discharge home today on 3-5 L per minute of oxygen. he received prescription for repeat Covid 19 PCR testing on an outpatient basis, he can complete Medrol Dosepak on outpatient basis, follow-up with Dr. Jacobsen in the office in 3-4 weeks after a negative repeat Covid 19 PCR testing. And patient was instructed to call the office if there is any worsening shortness of breath or any other concerns I performed a history & physical examination of the patient and discussed their management with my nurse practitioner, Val Chong. I reviewed the nurse practitioner's note and agree with the documented findings and plan of care. Lung sounds are positive for diminished breath sounds. The findings and the impression was discussed with the patient. I attest to the documentation by the nurse practitioner. Time with Patient: Less than 30
== END 2020-09-04 13:39 | disposition home or self-care (01) | DRG 871 ==
LOC: EC 10:35 → 4SSUR 12:58 → 2SICU 08-19 10:18 → 4SSUR 08-31 20:45
PROVIDERS: ADMIT Internal Medicine; ATTEND Internal Medicine
PROC: XW033E5 Introduction of Remdesivir Anti-infective into Peripheral Vein, Percutaneous Approach, New Technology Group 5 (ICD-10-PCS; 2020-08-15)
PROC: XW13325 Transfusion of Convalescent Plasma (Nonautologous) into Peripheral Vein, Percutaneous Approach, New Technology Group 5 (ICD-10-PCS; principal; 2020-08-17)
PROC: XW033H5 Introduction of Tocilizumab into Peripheral Vein, Percutaneous Approach, New Technology Group 5 (ICD-10-PCS; 2020-08-22)
PROC: 05HF33Z Insertion of Infusion Device into Left Cephalic Vein, Percutaneous Approach (ICD-10-PCS; 2020-08-24)
DX: A41.89 Other specified sepsis (principal); J12.89 Other viral pneumonia; U07.1 COVID-19; J80 Acute respiratory distress syndrome; E22.2 Syndrome of inappropriate secretion of antidiuretic hormone; E87.4 Mixed disorder of acid-base balance; K21.9 Gastro-esophageal reflux disease without esophagitis; F41.0 Panic disorder [episodic paroxysmal anxiety]; F41.9 Anxiety disorder, unspecified; K57.90 Diverticulosis of intestine, part unspecified, without perforation or abscess without bleeding; I10 Essential (primary) hypertension; G89.29 Other chronic pain; E66.9 Obesity, unspecified; E86.1 Hypovolemia; E78.5 Hyperlipidemia, unspecified; G47.00 Insomnia, unspecified; T38.0X5A Adverse effect of glucocorticoids and synthetic analogues, initial encounter; Z71.3 Dietary counseling and surveillance; Z68.37 Body mass index [BMI] 37.0-37.9, adult; Z87.828 Personal history of other (healed) physical injury and trauma; Z79.899 Other long term (current) drug therapy; Z98.890 Other specified postprocedural states; Z87.19 Personal history of other diseases of the digestive system; Z87.11 Personal history of peptic ulcer disease; Z82.49 Family history of ischemic heart disease and other diseases of the circulatory system; Z80.8 Family history of malignant neoplasm of other organs or systems; Z82.3 Family history of stroke
CPT/HCPCS: 36410; 36415; 71045; 76937; 80048; 80053; 82550; 82553; 82728; 83520; 83605; 83615; 83625; 83735; 84132; 84145; 85025; 85027; 85379; 85384; 85610; 85730; 86140; 86850; 86900; 86901; 87040; 93005; 94640; 94760; 94762; 96361; 96365; 96367; 99285

== ENCOUNTER 2020-09-22 19:01 | Emergency (ER) | payer OTHER ==
[2020-09-22 19:07] VITALS: TEMP 99.1
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
[2020-09-22 19:44] LABS: African American GFR (CKD) >90 (>60 ml/min/1.73 sqM); Anion Gap 5 mmol/L; Basophils # (A) 0.1 k/uL (0-0.2); Basophils % (A) 1 %; Blood Urea Nitrogen 21 mg/dL (9-20); Calcium 9.5 mg/dL (8.4-10.2); Carbon Dioxide 26 mmol/L (22-30); Chloride 106 mmol/L (98-107); Eosinophils # (A) 0.1 k/uL (0-0.7); Eosinophils % (A) 1 %; Glucose 125 mg/dL (74-99); HCT 40.2 % (39.0-53.0); HGB 13.9 gm/dL (13.0-17.5); Lymphocytes # (A) 1.6 k/uL (1.0-4.8); Lymphocytes % (A) 15 %; MCH 31.7 pg (25.0-35.0); MCHC 34.5 g/dL (31.0-37.0); MCV 91.9 fL (80.0-100.0); Mean Platelet Volume 6.5; Monocytes # (A) 0.5 k/uL (0-1.0); Monocytes % (A) 5 %; Neutrophils # (A) 7.6 k/uL (1.3-7.7); Neutrophils % (A) 76 %; Non-African American GFR(CKD) >90 (>60 ml/min/1.73 sqM); Platelet Count 387 k/uL (150-450); Potassium 4.4 mmol/L (3.5-5.1); RBC 4.37 m/uL (4.30-5.90); RDW 14.4 % (11.5-15.5); Sodium 137 mmol/L (137-145); WBC 10.1 k/uL (3.8-10.6)
[2020-09-22 19:52] LABS: INR 0.9 (<1.2); Partial Thromboplastin Time 22.5 sec (22.0-30.0); Prothrombin Time 9.5 sec (9.0-12.0)
[2020-09-22 20:05] VITALS: RESP 16
--- NOTE | 2020-09-22 20:43 | US ---
EXAMINATION TYPE: US venous doppler duplex LE DATE OF EXAM: 09/22/2020 8:15 PM COMPARISON: US CLINICAL HISTORY: questionable PE. EC patient with history of COVID SIDE PERFORMED: Bilateral TECHNIQUE: The lower extremity deep venous system is examined utilizing real time linear array sonog gui with graded compression, doppler sonography and color-flow sonography. VESSELS IMAGED: Common Femoral Vein Deep Femoral Vein Greater Saphenous Vein * Femoral Vein Popliteal Vein Small Saphenous Vein * Proximal Calf Veins (* superficial vessels) Right Leg: Negative for DVT Left Leg: Negative for DVT IMPRESSION: No evidence of deep vein thrombosis in both legs.
[2020-09-22] MEDS ORDERED: APIXABAN 5 MG TAB PO STA (20:50)
[2020-09-22 21:11] VITALS: BP 128/85; PULSE 106
== END 2020-09-22 21:56 | disposition home or self-care (01) ==
LOC: EC 19:01
DX: I26.99 Other pulmonary embolism without acute cor pulmonale (principal); J18.9 Pneumonia, unspecified organism; R09.02 Hypoxemia; F41.0 Panic disorder [episodic paroxysmal anxiety]; I10 Essential (primary) hypertension; Z79.899 Other long term (current) drug therapy; Z86.19 Personal history of other infectious and parasitic diseases; Z82.49 Family history of ischemic heart disease and other diseases of the circulatory system
CPT/HCPCS: 36415; 80048; 84484; 85025; 85610; 85730; 93005; 93970; 99285

== ENCOUNTER → 2020-09-22 | Outpatient (CLI) | payer OTHER ==
--- NOTE | 2020-09-22 17:34 | CT ---
EXAMINATION TYPE: CT angio chest DATE OF EXAM: 09/22/2020 COMPARISON: None HISTORY: Shortness of breath, hx of covid. CT DLP: 1092 mGycm Automated exposure control for dose reduction was used. CONTRAST: Performed with IV Contrast, patient injected with 100ml mL of Isovue 370. There are 3-D post processed images. There is diffuse pulmonary interstitial edema. There is no pleural effusion. Heart is slightly enlarg ed. There is no pericardial effusion. There is right paratracheal lymph node that measures 18 x 9 mm. There are no hilar masses. There is a small right lower lobe pulmonary artery branch posteriorly that shows a questionable filli ng defect. This is seen on image 93 series 14. The bony thorax is intact. Upper abdominal soft tissues are intact. There is some fatty infiltration of the liver. IMPRESSION: Diffuse pulmonary interstitial edema. Questionable small embolism in the small branch of the posterior basal segment right lower lobe pulmo nary artery.
== END | disposition home or self-care (01) ==
LOC: RADCTMAIN 16:52
PROVIDERS: ATTEND Internal Medicine
DX: R60.9 Edema, unspecified (principal)
CPT/HCPCS: 71275; Q9967

== ENCOUNTER → 2020-11-15 | Outpatient (CLI) | payer OTHER ==
--- NOTE | 2020-11-15 12:00 | ECHOF ---
Referral Reason:I27.20 MEASUREMENTS -------- HEIGHT: 188.0 cm WEIGHT: 132.9 kg BP: RVIDd: 4.6 cm (< 3.3) IVSd: 1.5 cm (0.6 - 1.1) LVIDd: 3.7 cm (3.9 - 5.3) LVPWd: 1.8 cm (0.6 - 1.1) IVSs: 2.1 cm LVIDs: 1.7 cm LVPWs: 1.8 cm LAESV Index (A-L): 30.54 ml/m Ao Diam: 3.4 cm (2.0 - 3.7) AV Cusp: 2.2 cm (1.5 - 2.6) MV EXCURSION: 18.739 mm (> 18.000) MV EF SLOPE: 61 mm/s (70 - 150) EPSS: 0.4 cm MV E Stephane: 0.76 m/s MV DecT: 170 ms MV A Stephane: 0.90 m/s MV E/A Ratio: 0.84 RAP: 5.00 mmHg RVSP: 44.47 mmHg FINDINGS -------- Sinus rhythm. This was a technically adequate study. The left ventricular size is normal. There is moderate concentric left ventricular hypertrophy. O verall left ventricular systolic function is normal with, an EF between 55 - 60 %. The diastolic fi lling pattern is normal for the age of the patient 9.63. The right ventricle is moderate to severely enlarged. LA is midly dilated 29-33ml/m2. The right atrium is mildly enlarged. Interatrial and interventricular septum intact. There is no evidence of aortic regurgitation. There is no evidence of aortic stenosis. Mild mitral regurgitation is present. [id number] tricuspid regurgitation present. There is moderate pulmonary hypertension. The r ight ventricular systolic pressure, as measured by Doppler, is 44.47mmHg. There is no pulmonic regurgitation present. The aortic root size is normal. IVC Not well visulized. There is no pericardial effusion. CONCLUSIONS -------- 1. The left ventricular size is normal. 2. There is moderate concentric left ventricular hypertrophy. 3. Overall left ventricular systolic function is normal with, an EF between 55 - 60 %. 4. The diastolic filling pattern is normal for the age of the patient 9.63 5. The right ventricle is moderate to severely enlarged. 6. LA is midly dilated 29-33ml/m2. 7. The right atrium is mildly enlarged. 8. There is no evidence of aortic regurgitation. 9. There is no evidence of aortic stenosis. 10. Mild mitral regurgitation is present. 11. Fbrv-[id number]-eixlhhow tricuspid regurgitation present. 12. There is moderate pulmonary hypertension. 13. The right ventricular systolic pressure, as measured by Doppler, is 44.47mmHg. SQL SERVER ARCHITECT: Tomasa Rivero RDCS
== END | disposition home or self-care (01) ==
LOC: RADECHMAIN 10:25
PROVIDERS: ATTEND Internal Medicine
DX: I08.1 Rheumatic disorders of both mitral and tricuspid valves (principal); I27.20 Pulmonary hypertension, unspecified
CPT/HCPCS: 93306

== ENCOUNTER → 2021-03-22 | Outpatient (CLI) | payer OTHER ==
--- NOTE | 2021-03-22 08:58 | CT ---
EXAMINATION TYPE: CT angio chest DATE OF EXAM: 03/22/2021 7:43 AM COMPARISON: CTA chest September 22, 2020 HISTORY: follow up history of recent pulmonary embolism CT DLP: 588.6 mGycm Automated exposure control for dose reduction was used. CONTRAST: CTA scan of the thorax is performed with IV Contrast, patient injected with 100 mL of Isovue 370, pul monary embolism protocol. MIP images are created and reviewed. FINDINGS: LUNGS: Exam suboptimal inspiration unable to hold breath and due to body habitus. Exam particularly s uboptimal for evaluating subcentimeter nodules. There are low lung volumes redemonstrated. Persistent areas of multifocal groundglass opacity and intralobular septal thickening bilaterally though improv ed from prior. No pleural effusion or pneumothorax seen. MEDIASTINUM: There is persistent suboptimal study with most dense contrast in SVC and heterogeneity w ith equal contrast in the aorta and pulmonary arteries. No thoracic aortic dissection or aneurysm. N o large saddle central pulmonary embolism. Suboptimal evaluation for segmental and subsegmental pulmo nary embolism There are no new greater than 1 cm hilar or mediastinal lymph nodes. No pericardial e ffusion is seen. Heart size stable and upper limits of normal. OTHER: Liver remains diffusely low dense consistent with diffuse fatty infiltration. Mild multilevel spurring in the spine.. IMPRESSION: Suboptimal study similar to prior. No large central pulmonary embolism. Suboptimal evalua tion of peripheral emboli on this and prior study. Mild alveolar and interstitial edema and/or less l ikely infiltrates bilaterally left prominent than prior study.
== END | disposition home or self-care (01) ==
LOC: RADCTMAIN 07:11
PROVIDERS: ATTEND Internal Medicine
DX: R91.8 Other nonspecific abnormal finding of lung field (principal); Z86.711 Personal history of pulmonary embolism
CPT/HCPCS: 71275; Q9967

== ENCOUNTER → 2021-05-17 | Outpatient (CLI) | payer OTHER | END | disposition home or self-care (01) | LOC: RADECHMAIN 11:53 | PROVIDERS: ATTEND Family Medicine | DX: R61 Generalized hyperhidrosis (principal) | CPT/HCPCS: 93270 ==

== ENCOUNTER → 2023-08-29 | Outpatient (CLI) | payer OTHER ==
--- NOTE | 2023-08-29 16:03 | CT ---
EXAMINATION TYPE: CT angio chest DATE OF EXAM: 08/29/2023 COMPARISON: 03/22/2021 HISTORY: 53-year-old male I26.99, pulmonary embolus, SOB, hx of PE TECHNIQUE: Contiguous axial scanning of the chest after the administration of 100 mL of Isovue 370. Coronal/sagittal MIP reconstructions performed. CT DLP: 595.9mGycm. Automatic exposure control utilized for a dose reduction. FINDINGS: The heart is upper limits of normal in size without pericardial effusion. No flattening of the interv entricular septum or reflux of contrast into the hepatic veins. Aorta normal caliber with a conventional chest branching anatomy. No thoracic lymphadenopathy by CT size criteria. Large caliber to the main right and left pulmonary arteries measuring up to 3.3 cm suggesting underly ing pulmonary hypertension. Satisfactory opacification of the pulmonary arterial system. No pulmonary embolus is seen. A few right-sided hilar lymph nodes are redemonstrated measuring up to 1.2 cm. No additional thoracic lymphadenopathy by CT size criteria. Mild centrilobular emphysema with its scattered strandy scarring throughout the lungs. Patchy opaciti es at the posterior right base and some minimal patchy change superior segment left lower lobe is dem onstrated. 2.0 x 1.3 cm posterior right basilar pulmonary nodule, previously measured 1.8 x 1.1 cm. Visualized upper abdomen shows diminished attenuation of the hepatic parenchyma. Bones: Mild multilevel degenerative disc disease. IMPRESSION: 1. No evidence for pulmonary embolus. 2. COPD with mild emphysema and scattered strandy scarring. Pulmonary arterial hypertension is sugges fredy. 3. Patchy opacities right greater than left lung bases. Correlate for early infectious or aspiration infiltrates. 4. There is a nodule at the right base measuring 2.0 x 1.3 cm. In comparison to 1.8 x 1.1 cm and 2020 . Annual surveillance follow-up is advised. 5. Incidental moderate hepatic steatosis. Appropriate clinical management advised.
== END | disposition home or self-care (01) ==
LOC: RADCTMAIN 15:00
PROVIDERS: ATTEND Internal Medicine
DX: I26.99 Other pulmonary embolism without acute cor pulmonale (principal); J43.2 Centrilobular emphysema; R91.8 Other nonspecific abnormal finding of lung field
CPT/HCPCS: 71275; Q9967

== ENCOUNTER → 2023-09-09 | Outpatient (CLI) | payer OTHER | LOC: CPPFTMAIN 14:36 | PROVIDERS: ATTEND Family Medicine | DX: R06.09 Other forms of dyspnea (principal) | CPT/HCPCS: 94060; 94726; 94729 ==

== ENCOUNTER → 2023-09-12 | Outpatient (CLI) | payer OTHER ==
[2023-09-12 12:38] LABS: ALT 50 U/L (4-49); AST 40 U/L (17-59); African American GFR (CKD) >90 (>60 ml/min/1.73 sqM); Albumin 4.4 g/dL (3.5-5.0); Albumin/Globulin Ratio 1.4; Alkaline Phosphatase 89 U/L (38-126); Anion Gap 9 mmol/L; Blood Urea Nitrogen 14 mg/dL (9-20); Calcium 9.5 mg/dL (8.4-10.2); Carbon Dioxide 28 mmol/L (22-30); Chloride 100 mmol/L (98-107); Globulin 3.2 g/dL; Glucose 97 mg/dL (74-99); Non-African American GFR(CKD) >90 (>60 ml/min/1.73 sqM); Potassium 4.6 mmol/L (3.5-5.1); Sodium 137 mmol/L (137-145); Total Bilirubin 0.5 mg/dL (0.2-1.3); Total Protein 7.6 g/dL (6.3-8.2)
[2023-09-12 12:50] LABS: Basophils # (A) 0.1 k/uL (0-0.2); Basophils % (A) 1 %; Eosinophils # (A) 0.2 k/uL (0-0.7); Eosinophils % (A) 2 %; Hypochromasia Slight; Lymphocytes # (A) 1.9 k/uL (1.0-4.8); Lymphocytes % (A) 14 %; MCH 30.7 pg (25.0-35.0); MCHC 32.3 g/dL (31.0-37.0); MCV 94.9 fL (80.0-100.0); Mean Platelet Volume 6.6; Monocytes # (A) 1.4 k/uL (0-1.0); Monocytes % (A) 10 %; Neutrophils # (A) 9.1 k/uL (1.3-7.7); Neutrophils % (A) 69 %; Platelet Count 295 k/uL (150-450); RBC 6.21 m/uL (4.30-5.90); RDW 13.8 % (11.5-15.5); T4, Free (Free Thyroxine) 0.93 ng/dL (0.78-2.19); WBC 13.1 k/uL (3.8-10.6)
[2023-09-12 12:59] LABS: HCT 58.9 % (39.0-53.0)
== END | disposition home or self-care (01) ==
LOC: LABWHC1 11:09
PROVIDERS: ATTEND Internal Medicine
DX: R06.00 Dyspnea, unspecified (principal)
CPT/HCPCS: 36415; 80053; 84439; 84443; 85025; 85379

== ENCOUNTER 2023-10-02 11:18 | Day surgery (SDC) | payer OTHER ==
[2023-10-01 12:03] VITALS: BMI 42.3
[~2023-10-02 11:18] MED LIST: LACTATED RINGERS 1,000 ML IV SCH; LIDOCAINE 1% (10MG/ML) FOR IV START INTRADERMA PRN
[2023-10-02] MEDS ORDERED: PROPOFOL 10 MG/ML 20 ML VIAL IV ONE (13:15)
[2023-10-02] MEDS ORDERED: LIDOCAINE 1% INJ 10MG/ML (20 ML MDV) ONE (13:15)
[2023-10-02 13:53] VITALS: RESP 16; TEMP 98
[2023-10-02 15:08] VITALS: BP 107/71; PULSE 74
--- NOTE | 2023-10-14 07:41 | P.TEE ---
Date of Procedure: 10/02/23 Description of Procedure(s): Procedure performed: 1. Transesophageal Echocardiogram. 2. Synchronized Cardioversion. Indications: Persistent atrial fibrillation Consent: I have discussed the risks, benefits and alternative therapies for the above-mentioned procedure. The patient has indicated understanding and acceptance of the risks of the procedure. Signed consent was obtained and was placed in the paper chart. Moderate conscious sedation: Moderate conscious sedation was administered by anesthesia, see separate report. Procedural Steps: Timeout was performed in usual fashion. Patient's heart rate, blood pressure, oxygen saturation and ECG were monitored. After achieving appropriate moderate conscious sedation, MOISES probe was advanced without difficulty and without any immediate complications to the esophagus. MOISES study was performed with color flow doppler, pulsed wave doppler and continuous wave doppler. Agitated saline bubbles were injected to assess for any intra-atrial shunt. The probe was then removed. After making sure that there is no evidence of intracardiac thrombus, pacer pads were placed on patients chest and back. Synchronized cardioversion was perfromed using [150] J. [1] attempt. Sinus rhythm was confirmed with a 12 lead EKG. Patient tolerated the procedure well. Patient was transferred to the post procedure area in stable and satisfactory condition. Complications: none FINDINGS Left Atrium: Normal Left atrial size. No evidence of mass or thrombus seen Left Atrial Appendage: No evidence of thrombus or mass seen in JUANY Inter atrial septum: PFO is present evident on color doppler and right to left [id number] on bubble study. Left Ventricle: Normal global LV size and systolic function Right Atrium: Mild RA dilatation Right Ventricle: Normal global RV size and systolic function Aortic Valve: Structurally normal Trileaflet, no significant calcification. No significant stenosis or regurgitation on color doppler assessment. Mitral Valve: Mild functional MR Pulmonic Valve: Not well visualized. Tricuspid Valve: Structurally normal. Ascending aorta, Aortic root and Aortic arch: Normal size aortic root and ascending aorta. Descending aorta: Mild intimal thickening. No evidence of large atheroma or bulky calcification CONCLUSION: No evidence of thrombus and left atrial appendage or left atrium Moderate left atrial dilatation Mild right atrial dilatation Patent foraminal ovale MOISES was followed by synchronous cardioversion, 101 50 J, successful Patient was instructed to continue systemic anticoagulation without any interruptions Recommended outpatient follow-up
== END 2023-10-02 15:01 | disposition home or self-care (01) ==
LOC: OR 11:18
PROVIDERS: ATTEND Student in an Organized Health Care Education/Training Program
DX: I48.19 Other persistent atrial fibrillation (principal); I51.7 Cardiomegaly; K21.9 Gastro-esophageal reflux disease without esophagitis; I10 Essential (primary) hypertension; Z79.01 Long term (current) use of anticoagulants; Z79.899 Other long term (current) drug therapy
CPT/HCPCS: 93312; 93320; 93325; 92960; J2001; J2704

== ENCOUNTER 2023-10-22 19:05 | Outpatient (CLI) | payer OTHER ==
--- NOTE | 2023-11-03 01:17 | SLS ---
SLEEP STUDY HISTORY OF PRESENT ILLNESS: This patient was suspected of obstructive sleep apnea. The patient has secondary polycythemia and [id number] degree of pulmonary hypertension. Based on that, a sleep study was ordered. PERTINENT PHYSICAL FINDINGS: Height is 6 feet 2 inches, weight is 328 and the body mass index is 32.1. Technical description is telephone for polysomnography report. SLEEP ARCHITECTURE: Total recording time was 132.5 minutes. The total sleep time was 91 minutes and the patient's overall sleep efficiency was 68.7% and the wake after sleep onset time was 23.5 minutes. Latency to sleep onset was 9 minutes. Sleep architecture was characterized by 15.4% stage I, 53.3% stage II, 0.5% stage III and 30.8% REM sleep. RESPIRATORY ANALYSIS: During this limited number of hours of sleep, the patient demonstrated a total of 76 obstructive respiratory events, 75 obstructive hypopneas and 1 obstructive apnea. The patient was connected to have an AHI of 49.5. Nevertheless, this is not an accurate number as the patient had very low total sleep duration. OXYGENATION ANALYSIS: The patient had baseline pulse ox of 90% when awake. Lowest pulse ox was 70% and during that limited number of minutes of sleep, the patient encountered nocturnal oxygen desaturation as the patient spent 47 minutes of the sleep time below pulse ox of 89%. LIMB MOVEMENT SUMMARY: No significant limb movement. CARDIAC SUMMARY: Average heart rate was 65 minimum and maximum heart rate was 76. ASSESSMENT: 1. Loud snoring. 2. Obstructive sleep apnea, estimated to be severe. Nevertheless, the AHI of 47 is not inaccurate representation of sleep apnea. The patient's total number of minutes of sleep was quite limited in the order of 91 minutes out of 132 minutes of recording time. During the course of the sleep study, the patient requested to have his blood pressure checked as the patient was having headache and his face was getting red. Blood pressure was recorded to be 183/113. His pulse ox was 96% and he was afebrile with a heart rate of 71. The patient is asking if he can go home and take blood pressure medication. The patient accordingly cut his study short and he left the sleep center for that reason. I am going to discuss those findings with Dr. Mayen. There is an adequate suspicion that the patient may have obstructive sleep apnea. If more data is needed, a home sleep study will be adequate to confirm the diagnosis to establish the severity of his illness. For now, there is obviously a high clinical suspicion and there is enough data to diagnose this patient for obstructive sleep apnea. If willing to undertake the treatment, CPAP therapy should be appropriate for this patient. More importantly, an in-lab titration may be needed to accurately eliminate all of his obstructive respiratory events and maintain an oxygen saturation above 92% and supplement oxygen as needed. All those things were discussed with the patient in the office under the supervision of Dr. Mayen. GHADA / MITCHELLN: [id number] /
== END 2023-10-23 00:30 | disposition left against medical advice (07) ==
LOC: 3 N SLEEP 19:05
PROVIDERS: ATTEND Internal Medicine Critical Care Medicine
DX: G47.33 Obstructive sleep apnea (adult) (pediatric) (principal); R51.9 Headache, unspecified; G47.36 Sleep related hypoventilation in conditions classified elsewhere; G47.52 REM sleep behavior disorder

== ENCOUNTER → 2023-10-27 | Outpatient (CLI) | payer OTHER ==
--- NOTE | 2023-10-27 17:59 | CA ---
Transthoracic Echo Report Name: Lee Fay Age: 53 Gender: M : 1970 Exam Date: 10/27/2023 14:51 Exam Location: [place] [facility] Ht (in): 76 Wt (lb): 328 Ordering Physician: Phil Hu MD ([id number]) Attending/Referring Phys: Phil Hu MD ([id number]) Tub Washer Tomasa Rivero RDCS Procedure CPT: Indications: I50.40 CHF Cardiac Hx: Technical Quality: Fair Contrast 1: Total Dose (mL): Contrast 2: Total Dose (mL): MEASUREMENTS (Male / Female) Normal Values 2D ECHO LV Diastolic Diameter PLAX 4.5 cm 4.2 - 5.9 / 3.9 - 5.3 cm LV Systolic Diameter PLAX 3.5 cm IVS Diastolic Thickness 1.5 cm 0.6 - 1.0 / 0.6 - 0.9 cm LVPW Diastolic Thickness 1.3 cm 0.6 - 1.0 / 0.6 - 0.9 cm LV Relative Wall Thickness 0.6 RV Internal Dim ED PLAX 3.9 cm LA Volume 61.2 cm??? 18 - 58 / 22 - 52 cm??? LA Volume Index 21.2 cm???/m??? 16 - 28 cm???/m??? M-MODE Aortic Root Diameter MM 3.6 cm LA Systolic Diameter MM 4.9 cm LA Ao Ratio MM 1.3 AV Cusp Separation MM 2.5 cm DOPPLER AV Peak Velocity 131.8 cm/s AV Peak Gradient 6.9 mmHg AV Mean Velocity 82.9 cm/s AV Mean Gradient 3.1 mmHg AV Velocity Time Integral 23.3 cm LVOT Peak Velocity 86.6 cm/s LVOT Peak Gradient 3.0 mmHg LVOT Velocity Time Integral 17.3 cm MV Area PHT 2.7 cm??? Mitral E Point Velocity 46.1 cm/s Mitral A Point Velocity 83.4 cm/s Mitral E to A Ratio 0.6 MV Deceleration Time 283.6 ms MV E' Velocity 7.5 cm/s Mitral E to MV E' Ratio 6.2 TR Peak Velocity 150.9 cm/s TR Peak Gradient 9.1 mmHg Right Ventricular Systolic Press 13.8 mmHg FINDINGS Left Ventricle Moderately increased left ventricular wall thickness. Left ventricular cavity size normal. Normal left ventricular systolic function with no obvious regional wall motion abnormalities. Left ventricular ejection fraction is estimated at 55-60 %. Right Ventricle Mild right ventricular dilatation. Right ventricular systolic pressure within normal limits. Right Atrium Normal right atrial size. Left Atrium Mildly increased left atrial volume. Mitral Valve Structurally normal mitral valve. No mitral stenosis. Trace to mild mitral regurgitation. Aortic Valve Trileaflet aortic valve. No aortic valve stenosis or regurgitation. Tricuspid Valve Structurally normal tricuspid valve. Mild tricuspid regurgitation. Pulmonic Valve Structurally normal pulmonic valve. Pericardium No pericardial effusion. Aorta Normal size aortic root and proximal ascending aorta. CONCLUSIONS LVH with preserved systolic function RV is mildly enlarged Previewed by: Dr. Vinod Carter MD (Electronically Signed) Final Date: 27 October 2023 17:59
== END | disposition home or self-care (01) ==
LOC: RADECHMAIN 14:46
PROVIDERS: ATTEND Student in an Organized Health Care Education/Training Program
DX: I50.40 Unspecified combined systolic (congestive) and diastolic (congestive) heart failure (principal)
CPT/HCPCS: 93306

== ENCOUNTER → 2023-12-12 | Outpatient (CLI) | payer OTHER ==
--- NOTE | 2023-12-18 09:03 | P.PCN ---
Date of Procedure: 12/18/23 Description of Procedure: Sleep study testing Date of services 12/12/2023 History 53 -year-old male patient referred to sleep center for probably a home sleep study with concerns of him having obstructive sleep apnea. The patient has history of snoring, sleep fragmentation along with chronic hypersomnia and sleepiness. The patient is also post COVID-19 related pneumonia and he has chronic hypoxemia. He has also encountered atrial fibrillation requiring cardioversion. He has history of hypertension, acid reflux and pulmonary embolism. Pertinent physical findings Patient is 6 feet and 1 inch, weight is down 25 pounds, BMI is 41.3 Technical description The [employer] apnea link system was used to complete this home sleep study. Discussed the home sleep study. Total recording duration was 8 hours and 38 minutes. The study started at 1:54 AM and it ended at 9:33 AM. The patient had more than 8 hours of flow and oxygen saturation evaluation that this was an adequate study. Results Respiratory analysis showed a total of 46 obstructive apneas and 188 obstructive hypopneas. This resulted in the moderately severe disease with an AHI of 27.6. No significant central apneas were noted Oxygenation analysis The patient had total of 296 seconds saturation with a pulse ox dropping more than 4%. Minimum pulse ox was 74%. Baseline pulse ox while awake was 93%. Average pulse ox during sleep was 89%. The patient spent approximately 2 hours and 24 minutes of distinct time below pulse ox of 89% Cardiac summary Average heart rate was 69 with a minimum heart rate of 51 and the maximum heart rate of 100 Assessment Obstructive sleep apnea moderately severe with an AHI of 27.6. Nocturnal oxygen saturation secondary to obstructive sleep apnea Chronic hypoxemia probably due to post COVID-19 pneumonia Paroxysmal atrial fibrillation Previous history of pulmonary embolism Obesity with a BMI of 41 Plan Will offer the patient a CPAP unit. I am going to suggest an APAP machine pressures of 5/60 cm of water with appropriate mask interface. He would benefit from a full facemask and I would suggest him utilizing an AirFit F20 fullface mask. The patient will optimize his mobilities. Weight. Maintain regular sleep schedule and implement the sleep hygiene measures. Follow-up in the o ffice in 30 to 90 days after initiating CPAP therapy.
== END ==
LOC: 3 N SLEEP 10:56
PROVIDERS: ATTEND Internal Medicine Critical Care Medicine
DX: G47.33 Obstructive sleep apnea (adult) (pediatric) (principal); G47.36 Sleep related hypoventilation in conditions classified elsewhere; I48.0 Paroxysmal atrial fibrillation; R09.02 Hypoxemia; E66.9 Obesity, unspecified; I10 Essential (primary) hypertension; K21.9 Gastro-esophageal reflux disease without esophagitis; U09.9 Post COVID-19 condition, unspecified; Z86.711 Personal history of pulmonary embolism; Z68.41 Body mass index [BMI] 40.0-44.9, adult; Z79.01 Long term (current) use of anticoagulants; Z79.899 Other long term (current) drug therapy

== ENCOUNTER → 2025-01-27 | Outpatient (CLI) | payer OTHER ==
[2025-01-27 18:46] LABS: HCT 47.5 % (39.6-50.0); MCH 30.9 pg (27.0-32.0); MCHC 33.7 g/dL (32.0-37.0); MCV 91.7 FL (80.0-97.0); Mean Platelet Volume 9.4 FL (9.5-12.2); NRBC Per 100 WBC 0 X 10*3/uL (0.00-0.01); Platelet Count 286 X 10*3/uL (140-440); RBC 5.18 X 10*6/uL (4.40-5.60); RDW 12.8 % (11.5-14.5); WBC 6.94 X 10*3/uL (4.50-10.00)
[2025-01-27 19:05] LABS: Chol/HDL Ratio 3.82 Ratio
[2025-01-27 19:06] LABS: ALT 78 U/L (10-49); AST 49 U/L (14-35); Albumin 4.5 g/dL (3.8-4.9); Albumin/Globulin Ratio 1.61 Ratio (1.60-3.17); Alkaline Phosphatase 84 U/L (41-126); BUN/Creat Ratio 18.44 Ratio (12.00-20.00); Blood Urea Nitrogen 16.6 mg/dL (9.0-27.0); Calcium 9.9 mg/dL (8.7-10.3); Carbon Dioxide 29.3 mmol/L (21.6-31.8); Chloride 103 mmol/L (96-109); Globulin 2.8 g/dL (1.6-3.3); Glucose 124 mg/dL (70-110); Potassium 4.5 mmol/L (3.5-5.5); Sodium 144 mmol/L (135-145); Total Bilirubin 0.4 mg/dL (0.3-1.2); Total Protein 7.3 g/dL (6.2-8.2)
[2025-01-27 22:47] LABS: NT-Pro-B-Type Natriuretic Pept <36 pg/mL (0-125)
== END | disposition home or self-care (01) ==
LOC: LABWHC1 14:47
PROVIDERS: ATTEND Student in an Organized Health Care Education/Training Program
DX: Z13.6 Encounter for screening for cardiovascular disorders (principal); D72.9 Disorder of white blood cells, unspecified; E11.9 Type 2 diabetes mellitus without complications; I50.9 Heart failure, unspecified; E78.5 Hyperlipidemia, unspecified; E03.9 Hypothyroidism, unspecified; R79.89 Other specified abnormal findings of blood chemistry
CPT/HCPCS: 36415; 80053; 80061; 83036; 83880; 84443; 85027